=== PATIENT | male | born 1965 | race Caucasian/White ===

== ENCOUNTER 2017-12-02 01:07 | Outpatient (CLI) | payer MEDICAID, SELFPAY ==
[2017-12-02 12:19] LABS: Hemoglobin A1C 5.6 % (4.5-6.2)
== END 2017-12-02 01:27 ==
PROVIDERS: PCP Family Medicine; Visit Provider Family Medicine
DX: E11.9 Type 2 diabetes mellitus without complications (principal)
CPT/HCPCS: 36415; 83036

== ENCOUNTER 2017-12-06 08:52 | Outpatient (CLI) | payer MEDICAID, SELFPAY ==
[2017-12-06 11:15] LABS: Anion Gap 12.5 mmol/L (3-11); BUN 50 mg/dL (7-18); CO2 21.5 mmol/L (21.0-32.0); CREATININE 2.24 mg/dL (0.70-1.30); Calcium 8.8 mg/dL (8.5-10.1); Chloride 108 mmol/L (98-107); Estimated GFR 30.82 (mL/min/1.73m2); Glucose 84 mg/dL (70-100); Potassium 4.8 mmol/L (3.5-5.1); Sodium 142 mmol/L (136-145)
== END 2017-12-06 09:12 ==
PROVIDERS: PCP Family Medicine; Visit Provider Family Medicine
DX: N28.9 Disorder of kidney and ureter, unspecified (principal)
CPT/HCPCS: 36415; 80048

== ENCOUNTER 2017-12-11 00:52 | Outpatient (CLI) | payer MEDICAID, SELFPAY ==
--- NOTE | 2017-12-11 08:49 | DI.US_ITS ---
SYMPTOMS/DIAGNOSIS: ELEVATED CREATININE, RENAL INSUFFICIENCY, N28.8-DISORDER OF KIDNEY AND URETER RENAL ULTRASOUND: The right kidney measures 10.4 x 5.3 x 4.5 cm. There is a 1.2 x 1 x 1 cm right lower pole cyst. The left kidney measures 10.6 x 6.4 x 5.3 cm. There is no evidence of hydronephrosis. Normal color flow is noted in both kidneys. A smooth-walled bladder is identified. Ureteral jets are seen. The prevoid bladder contains 237 cc, the postvoid bladder 7 cc. The prostatic volume is 22.8 cm3. SUMMARY: Normal renal ultrasound.
== END 2017-12-11 01:12 ==
PROVIDERS: PCP Family Medicine; Visit Provider Family Medicine
DX: N28.89 Other specified disorders of kidney and ureter (principal); R79.89 Other specified abnormal findings of blood chemistry
CPT/HCPCS: 76770

== ENCOUNTER 2018-02-27 02:39 | Outpatient (CLI) | payer MEDICAID, SELFPAY ==
[2018-02-27 12:15] LABS: Hemoglobin A1C 5.5 % (4.5-6.2)
[2018-02-27 12:18] LABS: Bilirubin Negative (Negative); Blood Trace-lysed (Negative); Clarity Clear; Glucose Negative (Negative); Ketones Negative (Negative); Leukocyte Esterase Negative (Negative); Nitrite Negative (Negative); Urobilinogen 0.2 EU/dL (Up TO 0.2)
[2018-02-27 12:41] LABS: Bacteria Few HPF (Negative); C & S Indicated? No/Sq. Contamination; Casts Negative LPF (Negative); Crystals Negative HPF (Negative); Epithelial Cells Many HPF (Negative); Mucus Negative (Negative); RBC 0-2 (0-2); WBC 0-2 HPF (0-5)
== END 2018-02-27 02:59 ==
PROVIDERS: PCP Family Medicine; Visit Provider Family Medicine
DX: I10 Essential (primary) hypertension (principal); N28.9 Disorder of kidney and ureter, unspecified; E11.21 Type 2 diabetes mellitus with diabetic nephropathy
CPT/HCPCS: 81003; 81015; 83036

== ENCOUNTER 2018-05-22 15:07 | Emergency (ER) | payer MEDICAID, SELFPAY ==
[2018-05-22 15:52] VITALS: BP 161/117; PULSE 79; RESP 16; TEMP 36.3; O2SAT 96
--- NOTE | 2018-05-22 16:39 | ED.GENADUL_ITS ---
Discharge Plan Disposition Patient Disposition: HOME Discharge Details Chief Complaint: RespSymp Clinical Impression: Cough, Smoker, Bronchitis Primary Care Provider: [facility] ED Provider: Nikolay Santacruz Home Meds and New Rx's Prescriptions: New azithromycin 250 mg tablet 250 mg PO DAILY 4 Days Qty: 4 RF: 0 ibuprofen 600 mg tablet 600 mg PO TID PRN (Reason: fever or pain) Qty: 30 RF: 0 Continued chlorthalidone 25 mg tablet 25 mg PO DAILY RF: 0 albuterol sulfate [ProAir HFA] 8.5 GM HFA aerosol inhaler 2 puff Inhalation Q6H PRN Qty: 1 RF: 4 indomethacin 50 MG capsule 50 mg PO TID PRNQty: 30 RF: 3 OneTouch Ultra Test 1 EACH strip 1 ea Miscellaneous BID Qty: 100 RF: 4 blood-glucose meter [OneTouch UltraMini] 1 EACH kit 1 ea Miscellaneous BID Qty: 1 RF: 0 metoprolol tartrate 50 MG tablet 50 mg PO BID Qty: 180 RF: 4 lancets [OneTouch Delica Lancets] 1 EACH misc 1 ea Miscellaneous BID Qty: 100 RF: 5 metformin 1,000 MG tablet 1,000 mg PO BID Qty: 180 RF: 4 amlodipine 10 MG tablet 10 mg PO DAILY Qty: 90 RF: 4 lisinopril 40 mg tablet 40 mg PO DAILY Qty: 90 RF: 4 Discharge Instructions Instructions: How to Stop Smoking (ED), Acute Bronchitis (ED), Acute Cough (ED) Additional Instructions: Please take full course of antibiotic as prescribed. Please contact your primary care physician to arrange follow-up. Return to the ER for any worsening or new concerning symptoms. Stand Alone Forms: Work Release Medical Decision Making 52yo m smoker with history of diabetes, hypertension, here with cough and congestion for the past 1 week. Subjective fever. Patient saturating well in no respiratory distress. Fingerstick gluc wnl. Consider pneumonia. Chest x-ray reviewed and interpreted by radiology: No evidence for acute abnormality in the chest. Suspect bronchitis. Given severity of illness and smoking history, plan to treat with azithromycin. Patient was reassessed after DuoNeb treatment and was noted to feel better. Disposition decision was made weighing the risks and benefits of hospitalization versus outpatient treatment, the risk for further decompensation, and the patient's wishes. The patient was stable and requested discharge. Prior to discharge, my usual and customary return precautions were reviewed with the patient - this included follow-up instructions and reason to return to the emergency department if condition worsens, does not improve as expected, or other new concerns arise. HPI General Mode of arrival: ambulatory . Date/Time Provider Initiated Documentation: 05/22/18 16:12 . Limitations to Documentation: no limitations . Information obtained by: patient . HPI Narrative: 52-year-old male with history of type 2 diabetes, smoker, hypertension, here with chief complaint of cough. Patient notes that for the past 1 week he has had cough, congestion, fatigue, subjective fever, intermittent headache. Cough is productive of yellow sputum. He has associated pleuritic chest discomfort when he coughs only. Patient notes that he has been using his albuterol inhaler intermittently for shortness of breath. Related Data Home Medications Medication Instructions Recorded Confirmed albuterol sulfate [ProAir HFA] 2 puff INHALATION Q6H PRN #1 05/19/15 05/22/18 inhaler indomethacin 50 mg PO TID PRN #30 tab-cap 11/15/16 05/22/18 OneTouch Ultra Test #100 strip 06/04/17 04/22/18 blood-glucose meter [OneTouch #1 kit 06/04/17 04/22/18 UltraMini] lancets [OneTouch Delica Lancets] #100 ea 06/04/17 04/22/18 metoprolol tartrate 50 mg PO BID #180 tab-cap 06/04/17 05/22/18 metformin 1,000 mg PO BID #180 tab-cap 06/11/17 05/22/18 amlodipine 10 mg PO DAILY #90 tab-cap 07/01/17 05/22/18 lisinopril 40 mg tablet 40 mg PO DAILY #90 tab-cap 01/29/18 05/22/18 chlorthalidone 25 mg tablet 25 mg PO DAILY 04/03/18 05/22/18 azithromycin 250 mg PO DAILY 4 Days #4 tab 05/22/18 ibuprofen 600 mg PO TID PRN #30 tab 05/22/18 Previous Rx's Medication Instructions Recorded OneTouch Ultra Test #100 strip 06/04/17 blood-glucose meter [OneTouch #1 kit 06/04/17 UltraMini] lancets [OneTouch Delica Lancets] #100 ea 06/04/17 metoprolol tartrate 50 mg PO BID #180 tab-cap 06/04/17 metformin 1,000 mg PO BID #180 tab-cap 06/11/17 amlodipine 10 mg PO DAILY #90 tab-cap 07/01/17 lisinopril 40 mg tablet 40 mg PO DAILY #90 tab-cap 01/29/18 azithromycin 250 mg PO DAILY 4 Days #4 tab 05/22/18 ibuprofen 600 mg PO TID PRN #30 tab 05/22/18 Allergies Allergy/AdvReac Type Severity Reaction Status Date / Time No Known Allergies Allergy Unverified 04/22/18 08:42 General Stated Complaint: RespSymp JASON: 3 Review of Systems Constitutional Reports fever(s) and Reports headache(s) ENT Reports headache(s) and Reports nasal congestion Respiratory Reports cough Neurologic Reports headache(s) [facility] Surgical History Appendectomy (~11/2009) Family History Mother No problems noted. Father Hyperlipidemia Stroke Sister No problems noted. Brother Diabetes Asthma Brother No problems noted. Brother No problems noted. Grandfather No problems noted. Grandfather No problems noted. Grandmother No problems noted. Grandmother No problems noted. Social History Smoking/Tobacco Use Status: Current every day Tobacco Type: cigarettes Alcohol Intake: never Drug use: Never Substance use type: does not use current occupation: [employer] What type of physical activity do you participate in: none Do you feel safe in your relationship?: Yes Exam Const General: cooperative and no acute distress Orientation: alert and awake HENLA Head: normocephalic Mouth: moist mucous membranes Eyes Conjunctivae: normal conjunctivae Sclera: normal sclerae Neck Neck: trachea midline and supple Resp Effort & Inspection: normal respiratory effort Auscultation: clear to auscultation bilaterally, no rales, rhonchi and no wheezes Cardio Jugular venous pressure: no JVD Rate: regular rate and not tachycardic Rhythm: regular rhythm GI Palpation: soft, not firm, no guarding, no masses, not rigid and nontender Skin General skin exam: no rashes or lesions noted Neuro General: alert, awake, oriented x3 and tone normal Extrem General: no edema Course Vital Signs Temperature 36.3 C L 05/22/18 15:52 Pulse 79 05/22/18 15:52 Respiratory Rate 16 05/22/18 15:52 Blood Pressure 161/117 H 05/22/18 15:52 Pulse Oximetry 96 05/22/18 15:52 Temperature 36.3 C L 05/22/18 15:52 Pulse 79 05/22/18 15:52 Respiratory Rate 16 05/22/18 15:52 Respiratory Effort Non-Labored 05/22/18 15:52 Blood Pressure 161/117 H 05/22/18 15:52 Blood Pressure Position Sitting 05/22/18 15:52 Pulse Oximetry 96 05/22/18 15:52 Oxygen Delivery Method Room Air 05/22/18 15:52 Oxygen Flow Rate 0 05/22/18 15:52 Pain Level 8 05/22/18 15:52
--- NOTE | 2018-05-22 16:45 | DI.RAD_ITS ---
SYMPTOM/DIAGNOSIS: COUGH PA AND LATERAL CHEST: Comparison is made with 06/03/17. The heart is normal in size. The lungs are clear. The mediastinal structures and pleura appear intact. CONCLUSION: Normal chest.
[2018-05-22] MEDS: Albuterol/Ipratropium 3 ML UPD VIAL UPD (16:57)
[2018-05-22] MEDS: Azithromycin 250 MG TAB 500 MG PO (16:57)
--- NOTE | 2018-05-22 17:29 | DI.VRAD_ITS ---
EXAM: XR Chest, 2 Views EXAM DATE/TIME: 05/22/2018 4:38 PM CLINICAL HISTORY: 52 years old, male; Signs and symptoms; Other: Cough TECHNIQUE: Imaging protocol: XR of the chest, 2 views. COMPARISON: CR CHEST 2 VIEWS PA,LAT 06/03/2017 10:24 AM FINDINGS: Lungs: Unremarkable. No consolidation. Pleural space: Unremarkable. No pleural effusion. No pneumothorax. Heart/Mediastinum: Unremarkable. No cardiomegaly. Bones/joints: Unremarkable. IMPRESSION: No evidence for acute abnormality in the chest. COMMENT: Preliminary interpretation is based on receipt of 2 image(s). A final report will be issued subsequently. Dictated and Authenticated by: Anna Ryder MD. Ordering:DELMA Link MD
[2018-05-22] MEDS: Acetaminophen 325 MG TAB 650 MG PO (18:41)
[2018-05-22] MEDS: Ibuprofen 600 MG TAB PO (18:42)
[2018-05-22 18:51] VITALS: BP 154/92; PULSE 84; RESP 16; TEMP 36.3; O2SAT 96
== END 2018-05-22 18:54 | disposition home or self-care (01) ==
PROVIDERS: Emergency Provider Student in an Organized Health Care Education/Training Program; PCP Family Medicine
DX: J20.9 Acute bronchitis, unspecified (principal); E11.9 Type 2 diabetes mellitus without complications; Z79.84 Long term (current) use of oral hypoglycemic drugs; F17.210 Nicotine dependence, cigarettes, uncomplicated; I10 Essential (primary) hypertension
CPT/HCPCS: 94640; 99283; 71046; J7620

== ENCOUNTER 2018-05-26 02:15 | Outpatient (CLI) | payer MEDICAID, SELFPAY ==
[2018-05-26 11:15] LABS: Hemoglobin A1C 5.9 % (4.5-6.2)
== END 2018-05-26 02:35 ==
PROVIDERS: PCP Family Medicine; Visit Provider Family Medicine
DX: E11.65 Type 2 diabetes mellitus with hyperglycemia (principal)
CPT/HCPCS: 36415; 83036

== ENCOUNTER 2018-12-22 02:08 | Outpatient (CLI) | payer MEDICAID, SELFPAY ==
[2018-12-22 16:19] LABS: Hemoglobin A1C 5.6 % (4.5-6.2)
== END 2018-12-22 02:28 ==
PROVIDERS: PCP Family Medicine; Visit Provider Family Medicine
DX: E11.9 Type 2 diabetes mellitus without complications (principal)
CPT/HCPCS: 36415; 83036

== ENCOUNTER 2018-12-29 15:43 | Outpatient (CLI) | payer MEDICAID, SELFPAY ==
[2018-12-29 19:37] LABS: Anion Gap 12.7 mmol/L (3-11); BUN 37 mg/dL (7-18); CO2 24.3 mmol/L (21.0-32.0); CREATININE 2.36 mg/dL (0.70-1.30); Calcium 9.1 mg/dL (8.5-10.1); Chloride 110 mmol/L (98-107); Estimated GFR 28.91 (mL/min/1.73m2); Glucose 87 mg/dL (70-100); Potassium 3.9 mmol/L (3.5-5.1); Sodium 147 mmol/L (136-145)
== END 2018-12-29 16:03 ==
PROVIDERS: PCP Family Medicine; Visit Provider Family Medicine
DX: I10 Essential (primary) hypertension (principal)
CPT/HCPCS: 36415; 80048

== ENCOUNTER 2020-03-23 03:13 | Outpatient (CLI) | payer OTHER, SELFPAY ==
[2020-03-23 17:17] LABS: Calculated LDL 124 mg/dL (<100); Cholesterol 172 mg/dL (<200); HDL Cholesterol 26 mg/dL (40-60); Triglyceride 112 mg/dL (<150)
== END 2020-03-23 03:33 ==
PROVIDERS: PCP Nurse Practitioner; Visit Provider Nurse Practitioner
DX: Z13.6 Encounter for screening for cardiovascular disorders (principal)
CPT/HCPCS: 36415; 80061

== ENCOUNTER 2020-05-30 04:12 | Outpatient (CLI) | payer OTHER, SELFPAY ==
[2020-05-31 16:15] LABS: COVID-19 RT-PCR UVMMC Result Negative (Negative)
== END 2020-05-30 04:13 | disposition home or self-care (01) ==
LOC: LBO 04:12
PROVIDERS: PCP Nurse Practitioner; Visit Provider Nurse Practitioner
DX: Z20.828 Contact with and (suspected) exposure to other viral communicable diseases (principal)
CPT/HCPCS: U0003

== ENCOUNTER 2021-04-11 02:24 | Outpatient (CLI) | payer OTHER, SELFPAY ==
[2021-04-11 09:46] LABS: Hemoglobin A1C 5.7 % (<5.7)
[2021-04-11 10:30] LABS: Calculated LDL 59 mg/dL (<100); Cholesterol 109 mg/dL (<200); Estimated GFR 21.75 (mL/min/1.73m2); HDL Cholesterol 26 mg/dL (40-60); Potassium 4.3 mmol/L (3.5-5.1); Triglyceride 120 mg/dL (<150)
== END 2021-04-11 02:25 | disposition home or self-care (01) ==
LOC: LBO 02:25
PROVIDERS: PCP Nurse Practitioner; Visit Provider Nurse Practitioner
DX: I10 Essential (primary) hypertension (principal); E11.9 Type 2 diabetes mellitus without complications; E78.5 Hyperlipidemia, unspecified
CPT/HCPCS: 36415; 80061; 82565; 83036; 84132

== ENCOUNTER 2021-06-01 14:00 | Outpatient (CLI) | payer OTHER, SELFPAY ==
--- NOTE | 2021-06-01 14:00 | RT.EKG_ITS ---
APPROVED REPORT Exam: Resting ECG Reason for Exam: HTN Patient Location: O HR:54 bpm ECG Measurements Heart Rate 54 AXIS CA 208 P 44 QRSd 96 QRS 7 QT 427 T 46 QTc 405 Conclusion Sinus rhythm...normal P axis, V-rate 50- 99 Borderline prolonged CA interval...CA >202, V-rate 50- 90
== END 2021-06-01 14:01 | disposition home or self-care (01) ==
LOC: DI.CARD 14:01
PROVIDERS: PCP Nurse Practitioner; Visit Provider Internal Medicine Cardiovascular Disease
DX: I10 Essential (primary) hypertension (principal); E78.5 Hyperlipidemia, unspecified; N18.4 Chronic kidney disease, stage 4 (severe)
CPT/HCPCS: 93010

== ENCOUNTER 2021-08-02 13:41 | Outpatient (CLI) | payer OTHER, SELFPAY ==
--- NOTE | 2021-08-02 13:30 | RT.EKG_ITS ---
APPROVED REPORT Exam: Resting ECG Reason for Exam: chest pain Patient Location: O HR:59 bpm ECG Measurements Heart Rate 59 AXIS VA 203 P 62 QRSd 86 QRS 28 QT 409 T 53 QTc 401 Conclusion Sinus bradycardia...rate< 60 Ventricular premature complex...V complex w/ short R-R interval Borderline prolonged VA interval...VA >202, V-rate 50- 90
== END 2021-08-02 13:42 | disposition home or self-care (01) ==
LOC: DI.CM 13:42
PROVIDERS: PCP Nurse Practitioner; Visit Provider Family Medicine
DX: R07.9 Chest pain, unspecified (principal)
CPT/HCPCS: 93010

== ENCOUNTER 2021-08-31 00:58 | Outpatient (CLI) | payer OTHER, SELFPAY ==
--- NOTE | 2021-08-31 07:30 | DI.NM_ITS ---
APPROVED REPORT Exam: Exercise Treadmill Patient Location: Out-Patient Room/Bed: Stress Nurse: Chantell Bender RN Ordering Provider:CHANTELL OSEI MD, Contact Number: [phone] BMI: 34.51 Baseline Rhythm: Sinus Bradycardia Indications: Chest pain. Dizzyness. Kidney disease. Diabetes. HTN. Smoker Medical History Medical History: HTN. HLD. DMII. Smoker. HLD. Cardiac Medications: Amlodipine. Lisinopril. Labetalol. Chlorthalidone. Metformin. Allergies: Atorvastatin. Rosuvastatin. Cardiac Risk Factors: Family hx. HTN. DMII. HLD. Current smoker. Previous Cardiac Procedures: None Pretest Chest Pain Characteristics: None Exercise History: Sedentary Physical Disabilities: None Lung Sounds: Clear to auscultation Heart Sounds: Regular Stress Test Details Test: Exercise stress testing was performed using a Julio protocol. Nuclear Acquisition: Rest Tc-99m/Stress Tc-99m 1 day Rest Isotope: Tc-99m Sestamibi. Dose: 10.8 Date: 08/31/2021 Injection Time: 0920 Stress Isotope: Tc-99m Sestamibi. Dose: 32.9 Date: 08/31/2021 Injection Time: 1050 HR Resting HR Supine: 50 bpm Max Heart Rate (APMHR): 163.180849 bpm Resting HR Standin bpm Target HR (85% APMHR): 138.519925 bpm Max HR Achieved: 145 bpm % of APMHR: 88.96 Recovery HR: 85 bpm HR response to stress: Normal HR response to stress Comment: Labatolol held for 24 hours prior to testing. BP Resting BP Supine: 162/84 mmHg Resting BP Standin/80 mmHg Max BP: 198/78 mmHg Recovery BP: 156/80 mmHg BP response to stress: Normal blood pressure response to stress. ECG Resting ECG: Sinus Bradycardia Ectopy: PVC Stress ECG: Sinus Tachycardia ST Change: No significant ST segment changes noted Arrhythmia: VPC's Recovery ECG: Sinus Rhythm Recovery ST Change: No significant ST segment changes noted Recovery Arrhythmia: VPC Clinical Reason for Termination: Fatigue Stress Symptoms: Dyspnea, Leg Fatigue Exercise duration: 9 min0 sec Highest Stage Reached: Stage 3: 3.4 mph at 14% grade. Exercise capacity: 10.16 METs Angina Score: None Rate Pressure Product: [id number] Stress ECG Conclusion 1. Resting electrocardiogram showed LVH voltage 2. Patient exercised on the Julio protocol and completed a workload of 10.16 METS 3. Normal heart rate and blood pressure response to exercise. The patient achieved 88% of predicted heart rate for age 4. The electrocardiographic portion of the test showed no evidence of myocardial ischemia 5. There were no significant dysrhythmias 6. See MPI report Stress Test Summary STAGE Time (mins) Speed (mph) Grade (%) HR BP SYMPTOMS METS Supine 50 162/84 Standing 60 148/80 1 3 1.7 10 90 164/70 4.6 2 6 2.5 12 125 180/80 7 3 9 3.4 14 145 Moderate dyspnea 10.2 1 min recovery 128 172/68 3 min recovery 96 198/78 Dyspnea subsided 6 min recovery 85 156/80 MPI Conclusion Normal myocardial perfusion without evidence of ischemia or prior infarction EF 52%, normal wall motion Radiologist Interpretation Radiologist agrees with Poll Watcher's Interpretation. Radiologist Interpretation by: William Perez MD Interpretation Date/Time: 08/31/2021 15:29:30
== END 2021-08-31 01:18 ==
LOC: DI 00:58
PROVIDERS: PCP Nurse Practitioner; Visit Provider Family Medicine
DX: E11.9 Type 2 diabetes mellitus without complications (principal); F17.200 Nicotine dependence, unspecified, uncomplicated; I10 Essential (primary) hypertension; N18.4 Chronic kidney disease, stage 4 (severe); R07.9 Chest pain, unspecified; R09.89 Other specified symptoms and signs involving the circulatory and respiratory systems; R42 Dizziness and giddiness
CPT/HCPCS: 78452; 93017

== ENCOUNTER 2021-09-22 01:18 | Outpatient (CLI) | payer OTHER, SELFPAY ==
[2021-09-22 14:04] LABS: Abs Immature Grans 0.04 10^3/uL (0.0-0.06); Absolute Basophil Count 0.09 10^3/uL (0.0-0.2); Absolute Eosinophil Count 0.35 10^3/uL (0.0-0.7); Absolute Lymphocyte Count 2.35 10^3/uL (1.2-3.4); Eosinophils % 3.7; HGB 13.1 g/dL (13.5-17.5); Immature Grans % 0.4; Lymphocytes % 24.9; MCH 31.5 pg (27.0-33.0); MCHC 33.6 % (32.0-36.0); MCV 94 fL (80-95); MPV 9.7 fL (8.0-11.0); Monocytes % 6.4; Neutrophils % 63.6; Platelet Count 159 10^3/uL (130-400); RBC 4.16 10^6/uL (4.36-5.78); RDW 12.3 % (11.8-14.1); RDW-SD 42.9 fL; WBC 9.43 10^3/uL (4.4-10.8)
[2021-09-22 15:28] LABS: ALT 21 U/L (16-63); AST 12 U/L (15-37); Albumin 3.7 g/dL (3.4-5.0); Alkaline Phosphatase 60 U/L (46-116); Anion Gap 12.9 mmol/L (3-11); BUN 33 mg/dL (7-18); Bilirubin, Total 0.3 mg/dL (0.2-1.0); CO2 22.1 mmol/L (21.0-32.0); CREATININE 3.3 mg/dL (0.70-1.30); Calcium 8.5 mg/dL (8.5-10.1); Chloride 110 mmol/L (98-107); Estimated GFR 19.42 (mL/min/1.73m2); Glucose 94 mg/dL (74-106); Potassium 3.5 mmol/L (3.5-5.1); Sodium 145 mmol/L (136-145); Total Protein 7.1 g/dL (6.4-8.2)
== END 2021-09-22 01:19 | disposition home or self-care (01) ==
LOC: LBO 01:18
PROVIDERS: PCP Nurse Practitioner; Visit Provider Nurse Practitioner
DX: Z00.00 Encounter for general adult medical examination without abnormal findings (principal); I10 Essential (primary) hypertension; E11.9 Type 2 diabetes mellitus without complications; F17.200 Nicotine dependence, unspecified, uncomplicated; N18.4 Chronic kidney disease, stage 4 (severe); R07.9 Chest pain, unspecified
CPT/HCPCS: 36415; 80053; 85025

== ENCOUNTER 2022-03-28 04:29 | Outpatient (CLI) | payer OTHER, SELFPAY ==
[2022-03-28 13:00] LABS: Anion Gap 10.1 mmol/L (3-11); BUN 41 mg/dL (7-18); CO2 25.9 mmol/L (21.0-32.0); CREATININE 3.2 mg/dL (0.70-1.30); Calculated LDL 114 mg/dL (<100); Chloride 108 mmol/L (98-107); Cholesterol 161 mg/dL (<200); Estimated GFR 21.74 (mL/min/1.73m2); Glucose 97 mg/dL (74-106); HDL Cholesterol 28 mg/dL (40-60); Potassium 3.6 mmol/L (3.5-5.1); Sodium 144 mmol/L (136-145); Triglyceride 99 mg/dL (<150)
== END 2022-03-28 04:30 | disposition home or self-care (01) ==
LOC: LOS 04:29
PROVIDERS: PCP Nurse Practitioner Family; Visit Provider Nurse Practitioner Family
DX: I10 Essential (primary) hypertension (principal); E78.5 Hyperlipidemia, unspecified
CPT/HCPCS: 36415; 80048; 80061

== ENCOUNTER 2022-07-03 20:56 | Outpatient (REF) | payer OTHER, SELFPAY ==
[2022-07-03 21:51] LABS: Hemoglobin A1C 5.7 % (<5.7)
== END 2022-07-03 20:57 | disposition home or self-care (01) ==
LOC: LBN 20:56
PROVIDERS: PCP Nurse Practitioner Family; Visit Provider Nurse Practitioner Family
DX: E11.9 Type 2 diabetes mellitus without complications (principal); M10.9 Gout, unspecified
CPT/HCPCS: 83036; 84550

== ENCOUNTER 2022-07-17 20:08 | Outpatient (REF) | payer OTHER, SELFPAY ==
[2022-07-17 21:14] LABS: Uric Acid 6.9 mg/dL (3.5-7.2)
== END 2022-07-17 20:09 | disposition home or self-care (01) ==
LOC: LBN 20:08
PROVIDERS: PCP Nurse Practitioner Family; Visit Provider Nurse Practitioner Family
DX: N18.4 Chronic kidney disease, stage 4 (severe) (principal); M10.9 Gout, unspecified; I10 Essential (primary) hypertension; E11.9 Type 2 diabetes mellitus without complications
CPT/HCPCS: 84550

== ENCOUNTER 2022-08-06 13:49 | Outpatient (REF) | payer OTHER, SELFPAY ==
[2022-08-06 13:07] LABS: Uric Acid 5.7 mg/dL (3.5-7.2)
== END 2022-08-06 13:50 | disposition home or self-care (01) ==
LOC: LBN 13:49
PROVIDERS: PCP Nurse Practitioner Family; Visit Provider Nurse Practitioner Family
DX: N18.4 Chronic kidney disease, stage 4 (severe) (principal); M10.9 Gout, unspecified; I10 Essential (primary) hypertension; E11.9 Type 2 diabetes mellitus without complications
CPT/HCPCS: 84550

== ENCOUNTER 2023-04-20 18:35 | Emergency (ER) | payer OTHER, SELFPAY ==
[2023-04-20] VITALS (45 sets, daily range): BP systolic 124–170; BP diastolic 71–94; PULSE 63–87; RESP 11–21; TEMP 36.4; O2SAT 97
--- NOTE | 2023-04-20 18:30 | RT.EKG_ITS ---
APPROVED REPORT Exam: Resting ECG Reason for Exam: Chest Pain Patient Location: E HR:74 bpm ECG Measurements Heart Rate 74 AXIS UT 174 P 76 QRSd 90 QRS 23 QT 360 T 86 QTc 400 Conclusion Sinus rhythm...normal P axis, V-rate 60- 99 Nonspecific repol abnormality, diffuse leads...ST dep, T flat/neg, ant/lat/inf sinus rhythm, normal axis, normal intervals, st segment depressions anterior septal leads, consider s ubtle st segment elevations III
--- NOTE | 2023-04-20 18:48 | W.ED.GENAD ---
Discharge Plan Disposition Patient Disposition: Transfer-Acute Inpatient Care Condition: Stable Discharge Details Clinical Impression: Acute ST elevation myocardial infarction (STEMI) of posterior wall Primary Care Provider: Maximus Esposito ED Provider: Marlon Hale Home Meds and New Rx's Prescriptions: No Action albuterol sulfate [ProAir HFA] 90 mcg/actuation HFA aerosol inhaler 2 puff Inhalation Q6H PRN Qty: 1 0RF Rx Instructions: with spacer indomethacin 50 mg capsule 50 mg PO TID PRN (Reason: gout) Qty: 10 0RF Rx Instructions: As needed for gout attack (DME) blood sugar diagnostic Strip 1 ea Miscellaneous BID Qty: 100 4RF Rx Instructions: One daily lisinopril 40 mg tablet 40 mg PO DAILY Qty: 90 4RF chlorthalidone 25 mg tablet 25 mg PO DAILY Qty: 90 4RF amlodipine 10 mg tablet 10 mg PO DAILY Qty: 90 4RF cholecalciferol (vitamin D3) 50 mcg (2,000 unit) capsule 2,000 unit PO DAILY Qty: 90 4RF Rx Instructions: Per nephrology allopurinol 100 mg tablet 100 mg PO DAILY Qty: 90 4RF (DME) blood-glucose meter [OneTouch UltraMini] 1 EACH kit 1 ea Miscellaneous BID Qty: 1 0RF (DME) lancets [OneTouch Delica Lancets] 1 EACH misc 1 ea Miscellaneous BID Qty: 100 5RF metoprolol succinate 50 mg tablet extended release 24 hr See Rx Instructions .ROUTE .COMPLEX Qty: 60 4RF Dose Instruction: TAKE 1 TABLET BY MOUTH TWICE DAILY Rx Instructions: TAKE 1 TABLET BY MOUTH TWICE DAILY HPI General Date/Time Provider Initiated Documentation: 04/20/23 18:47. HPI Narrative: 57 year-old female presents to ED today by POV/ambulating with a chief complaint of headaches, chest pain with onset for the past two weeks, chest pain since at least 0400 this morning when he went ice fishing. Patient has diabetes, has not been taking his medications for a couple days- states he is unsure if a roommate he is trying to evict but cannot has been messing with his medications- was trying to hold them to see if his headaches went away. Quality described as chest pressure with shortness of breath, denies diaphoresis, denies near syncope, endorses daily severe migraines, denies fever, states he was very thirsty earlier today and drank some gómez nafisa and threw up once, no radiation to polyuria, cough, recent URI, neck stiffness, bowel changes. Severity is described as 10/04. Palliating factors include took a Mima aspirin around 1400 today. Provoking factors include nothing specific. Events leading up to the incident/Associated Symptoms: Patient denies cardiac history. Patient not anticoagulated. Related Data Home Medications Medication Instructions Recorded Confirmed blood-glucose meter (OneTouch ##1 06/04/17 12/11/22 UltraMini kit) lancets 33 gauge (OneTouch Delica #100 ea 06/04/17 12/11/22 Lancets) albuterol sulfate 90 mcg/actuation 2 puff inhalation Q6H PRN ##1 05/28/19 04/20/23 aerosol inhaler (ProAir HFA) blood sugar diagnostic #100 strips 08/27/19 12/11/22 amlodipine 10 mg tablet 10 mg PO DAILY #90 tab-caps 04/10/22 04/20/23 chlorthalidone 25 mg tablet 25 mg PO DAILY #90 tabs 04/10/22 04/20/23 lisinopril 40 mg tablet 40 mg PO DAILY #90 tab-caps 04/10/22 04/20/23 indomethacin 50 mg capsule 50 mg PO TID PRN gout #10 tab-caps 07/17/22 04/20/23 allopurinol 100 mg tablet 100 mg PO DAILY #90 tabs 12/11/22 04/20/23 cholecalciferol (vitamin D3) 50 2,000 unit PO DAILY #90 caps 12/11/22 04/20/23 mcg (2,000 unit) capsule metoprolol succinate 50 mg See Rx Instructions .Route 04/01/23 04/20/23 tablet,extended release 24 hr .COMPLEX #60 tabs Previous Rx's Medication Instructions Recorded blood-glucose meter (OneTouch ##1 06/04/17 UltraMini kit) lancets 33 gauge (OneTouch Delica #100 ea 06/04/17 Lancets) albuterol sulfate 90 mcg/actuation 2 puff inhalation Q6H PRN ##1 05/28/19 aerosol inhaler (ProAir HFA) blood sugar diagnostic #100 strips 08/27/19 amlodipine 10 mg tablet 10 mg PO DAILY #90 tab-caps 04/10/22 chlorthalidone 25 mg tablet 25 mg PO DAILY #90 tabs 04/10/22 lisinopril 40 mg tablet 40 mg PO DAILY #90 tab-caps 04/10/22 indomethacin 50 mg capsule 50 mg PO TID PRN gout #10 tab-caps 07/17/22 allopurinol 100 mg tablet 100 mg PO DAILY #90 tabs 12/11/22 cholecalciferol (vitamin D3) 50 2,000 unit PO DAILY #90 caps 12/11/22 mcg (2,000 unit) capsule metoprolol succinate 50 mg See Rx Instructions .Route 04/01/23 tablet,extended release 24 hr .COMPLEX #60 tabs Allergies Allergy/AdvReac Type Severity Reaction Status Date / Time atorvastatin AdvReac Mild Skin Rash Verified 04/20/23 18:45 rosuvastatin AdvReac Mild Skin Rash Verified 04/20/23 18:45 General Stated Complaint: Chest Pain JASON: 2 Review of Systems All systems reviewed & are unremarkable except as noted in HPI and below Exam Narrative Exam Narrative: GENERAL APPEARANCE: Well-nourished, non-toxic, awake and alert, atraumatic, no acute distress. SKIN: Warm, pink, dry, intact, without rashes/lesions/ulcerations. HEAD: Normocephalic, atraumatic, normal hair distribution for gender/age. EYES: Pupils PERRLA, EOMs intact without nystagmus, normal conjunctiva, no exudates on lids/lashes. ENT: Nares patent, no circumoral cyanosis, no facial swelling NECK: Supple, trachea midline, painless cervical ROM. LUNGS/CHEST: Lungs CTA bilaterally- no rhonchi/rales/wheezes diffusely, non-labored respirations, normal A/P diameter, symmetrical expansion, no chest wall deformity HEART (CV/PV): Regular rate and rhythm without murmur, no peripheral edema, no JVD. ABDOMEN: Soft, non-distended, no guarding, no tenderness. MSK: Normal ROM, no swelling/deformity to bilateral UEs or LEs, moving all extremities without weakness, no cyanosis, spine midline without tenderness, normal curvature. NEURO: Mental Status AAOx4 - alert to person, place, time, events No facial droop, no forehead involvement. Motor: No focal weakness - strength 5/5 in bilateral UEs and LEs, proximal and distal, symmetric. Sensory: sensation intact to light touch globally. Gait normal: patient ambulated without ataxia into ED room. PSYCH: euthymic, cooperative, pleasant, appropriate speech Course Vital Signs Vital signs: Vital Signs Temperature 36.4 C 04/20/23 18:40 Pulse 87 04/20/23 18:40 Respiratory Rate 14 04/20/23 18:40 Blood Pressure 170/94 H 04/20/23 18:40 Pulse Oximetry 97 04/20/23 18:40 Temperature 36.4 C 04/20/23 18:40 Temperature Source Tympanic 04/20/23 18:40 Pulse 87 04/20/23 18:40 Respiratory Rate 14 04/20/23 18:40 Blood Pressure 170/94 H 04/20/23 18:40 Pulse Oximetry 97 04/20/23 18:40 Oxygen Delivery Method Room Air 04/20/23 18:40 Oxygen Flow Rate 0 04/20/23 18:40 Pain Level 10 04/20/23 18:40 Medical Decision Making This dictation utilizes [id number] dictation software and may contain unedited grammatical errors. 57 y/o M presents to ED today with a chief complaint of daily severe headaches for the past two weeks, chest pains off and on throughout- going on since at least 0400 this morning. Patient is a non-insulin dependent diabetic who self-discontinued his medicines due to a complex social situation at home. He has been trying to evict a roommate but cannot- states he has been following the courts ruling but is unsure if this roommate has been messing with his medications, so he stopped to see if that was the source of his headches, no relief. Patient denies cardiac history, states an episode of polydipsia earlier today without polyuria and vomiting 1x. Patients' medical history: Renal insufficiency, nicotine dependence, hypertension, KATIE, type 2 diabetes mellitus, hyperlipidemia, CKD stage IV, right carotid bruit. Family and social history: active smoker, tries to eat well, no recent travel. Pertinent exam findings / vital signs include lungs CTA, nontoxic vitals, benign abdomen, neuro intact, benign cardiac exam. Differential / pathologies of concern include ACS, DKA, Migraine, Covid/Flu, Bacteremia, Rhabdomyolysis. Diagnostic studies of: -CBC, CMP, lactate, CRP/ESR, VBG, CK, lipase, magnesium, procalcitonin, blood cultures, urinalysis, ammonia, BNP, liver panel, COVID/flu/RSV PCR, chest x-ray, EKG. -CBC shows leukocytosis of 13, no anemia -VBG shows no acidosis, lactate 1.3, procal neg - do not suspect sepsis -SCr 3.7, up from prior values this year of 3.2, CKD Stage IV -AST of 96, was ice fishing all day -CK of 944, possible rhabdomyolysis vs elevated from cardiac causes -Trop 12,000 - do not suspect from renal sources with ST depression on EKG -BNP elevated to 788 -UA has protein and blood -Coags, PT/INR/PTT WNL -Blood Cx's pending -CXR shows no widened mediastinum, no acute pathology. -EKG shows sinus rhythm at 74 bpm with P waves followed by narrow complex QRS, normal axis deviation, normal QT QTc, some ST depression in V2 V3 V4 with some low amplitude possible submillimeter elevation in lead III, no T-wave inversions, reviewed with EM Attending Dr. Frankel immediately. -repeat EKG shows some dynamic changes of T-waves inversions, some further depression in Lead II now- question Q-waves in lead III now -Repeat EKG in posterior position for [facility] - with lead 4,5,6 transposed to 7,8,9 - shows 1/2mm elevation in leads 7,8,9 - consistent with posterior STEMI, [facility] accepts for emergent transport by fastest means possible, [facility] en route. Interventions of: -IVF Saline, IV Tylenol. Heparin ACS Protocol > [facility] Cardiology Consult Spoke with Dr. Jose at [facility] Cardiology- would like posterior EKG, recommend 600mg clopidogrel, Nitro PRN, and that they will take the patient, and determination of urgency decided on posterior RI > comes back posterior STEMI, starting nitro drip, [facility] transfer center communicating with [facility] for possible flight for transport. Accepting physician Dr. Painter. [facility] Dr. Jose recommends against lysing the patient as the onset has been vague and intermittent over days. 2120: Nitroglycerin drip started at 5mcg/min, awaiting transfer, pain is <3/10 in chest. Sent repeat troponin value- pending at time of transfer [id number], sent communication to [facility] transfer center. Patient left facility at 2210 by DHART. Disposition of Acute ST elevation myocardial infarction (STEMI) of posterior wall. Patient verbalized understanding of the plan and return to ED criteria and engaged in shared decision making. Medical Records Medical records reviewed: Yes I reviewed the patient's medical records. Imaging Data Radiologic Study: Attestation: I personally reviewed and interpreted this imaging study as follows: Imaging: X-Ray Radiologist's impression: Exam: XR Chest Exam date and time: 04/20/2023 8:03 PM Age: 57 years old Clinical indication: Other: Unspecified; Patient HX: Chest pain TECHNIQUE: Imaging protocol: Radiologic exam of the chest. Views: 1 view. COMPARISON: CT CHEST LUNG CANCER SCREEN 05/22/2022 3:25 PM FINDINGS: Lungs: No consolidation. No Mass Pleural spaces: No pleural effusion. No pneumothorax. Heart/Mediastinum: Unremarkable Bones/joints: No significant abnormality IMPRESSION: No acute findings. Dictated and Authenticated by: Edin Linton MD. Ordering:YESENIA Mason MD Lab Data Lab results reviewed: Yes I reviewed the patient's lab results. Labs: 04/20/23 19:26 Blood Blood Culture - Pending 04/20/23 19:15 Blood Blood Culture - Pending Laboratory Tests Range/Units 04/20/23 04/20/23 04/20/23 19:00 19:00 19:00 WBC (4.4-10.8) 10^3/uL 13.12 H RBC (4.36-5.78) 10^6/uL 4.55 Hgb (13.5-17.5) g/dL 14.2 Hct (40.0-50.0) % 41.3 MCV (80-95) fL 91 MCH (27.0-33.0) pg 31.2 MCHC (32.0-36.0) % 34.4 RDW (11.8-14.1) % 12.9 Plt Count (130-400) 10^3/uL 194 MPV (8.0-11.0) fL 10.2 Immature Gran % 0.3 Neutrophils % 73.0 Lymphocytes % 17.5 Monocytes % 5.6 Eosinophils % 2.8 Basophils % 0.8 Nucleated RBC % (0.0-0.3) % 0.0 Absolute Neutrophils (1.2-6.7) 10^3/uL 9.58 H Absolute Lymphocytes (1.2-3.4) 10^3/uL 2.30 Absolute Monocytes (0.1-0.8) 10^3/uL 0.73 Absolute Eosinophils (0.0-0.7) 10^3/uL 0.37 Absolute Basophils (0.0-0.2) 10^3/uL 0.10 ESR (0-20) mm/hr 13 PT (9.1-11.1) sec 9.8 INR (0.9-1.1) 1.0 APTT (23.6-32.8) sec 32.6 VBG pH (7.31-7.41) VBG pCO2 (41-51) mmHg VBG pO2 mmHg VBG HCO3 (23-28) mmol/L VBG Total CO2 (24-29) mmol/L VBG O2 Saturation % VBG Base Excess (-2-3) mmol/L VBG Lactate (0.6-1.4) mmol/L Sodium (136-145) mmol/L 144 Potassium (3.5-5.1) mmol/L 3.1 L Chloride (98-107) mmol/L 108 H Carbon Dioxide (21.0-32.0) mmol/L 23.3 Anion Gap (3-11) mmol/L 12.7 H BUN (7-18) mg/dL 59 H Creatinine (0.70-1.30) mg/dL 3.7 H* Est GFR (CKD-EPI 2020) (mL/min/1.73m2) 18.15 Glucose (74-106) mg/dL 177 H Calcium (8.5-10.1) mg/dL 8.7 Magnesium (1.8-2.4) mg/dL 2.2 Total Bilirubin (0.2-1.0) mg/dL 0.3 0.3 Conjugated Bilirubin (0.0-0.2) mg/dL 0.1 AST (15-37) U/L 100 H 96 H ALT (16-63) U/L 24 Alkaline Phosphatase (46-116) U/L Ammonia (11-32) umol/L Creatine Kinase (39-308) U/L Troponin I (< or =60) ng/L C-Reactive Protein (<or=0.5) mg/dL NT-Pro-B Natriuret Pep (<300) pg/mL Total Protein (6.4-8.2) g/dL Albumin (3.4-5.0) g/dL Lipase (16-77) U/L Procalcitonin ng/mL Urine Color (Yellow) Urine Clarity (Clear) Urine pH (5-8) Ur Specific [place] (1.005-1.025) Urine Protein (Neg-Trace) mg/dL Urine Ketones (Negative) mg/dL Urine Blood (Negative) Urine Nitrite (Negative) Urine Bilirubin (Negative) Urine Urobilinogen (Up to 0.2) mg/dL Ur Leukocyte Esterase (Negative) Urine RBC (0-2) HPF Urine WBC (0-5) HPF Ur Epithelial Cells (Negative) HPF Urine Crystals (Negative) HPF Urine Bacteria (Negative) HPF Urine Casts (Negative) LPF Urine Mucus (Negative) Urine Other (Negative) Ur Culture Indicated? Urine Glucose (Negative) mg/dL COVID-19 Source SARS-CoV-2 (PCR) (Negative) Influenza Type A (PCR) (Negative) Influenza Type B (PCR) (Negative) RSV (PCR) (Negative) Range/Units 04/20/23 04/20/23 04/20/23 19:00 19:00 19:00 WBC (4.4-10.8) 10^3/uL RBC (4.36-5.78) 10^6/uL Hgb (13.5-17.5) g/dL Hct (40.0-50.0) % MCV (80-95) fL MCH (27.0-33.0) pg MCHC (32.0-36.0) % RDW (11.8-14.1) % Plt Count (130-400) 10^3/uL MPV (8.0-11.0) fL Immature Gran % Neutrophils % Lymphocytes % Monocytes % Eosinophils % Basophils % Nucleated RBC % (0.0-0.3) % Absolute Neutrophils (1.2-6.7) 10^3/uL Absolute Lymphocytes (1.2-3.4) 10^3/uL Absolute Monocytes (0.1-0.8) 10^3/uL Absolute Eosinophils (0.0-0.7) 10^3/uL Absolute Basophils (0.0-0.2) 10^3/uL ESR (0-20) mm/hr PT (9.1-11.1) sec INR (0.9-1.1) APTT (23.6-32.8) sec VBG pH (7.31-7.41) VBG pCO2 (41-51) mmHg VBG pO2 mmHg VBG HCO3 (23-28) mmol/L VBG Total CO2 (24-29) mmol/L VBG O2 Saturation % VBG Base Excess (-2-3) mmol/L VBG Lactate (0.6-1.4) mmol/L Sodium (136-145) mmol/L Potassium (3.5-5.1) mmol/L Chloride (98-107) mmol/L Carbon Dioxide (21.0-32.0) mmol/L Anion Gap (3-11) mmol/L BUN (7-18) mg/dL Creatinine (0.70-1.30) mg/dL Est GFR (CKD-EPI 2020) (mL/min/1.73m2) Glucose (74-106) mg/dL Calcium (8.5-10.1) mg/dL Magnesium (1.8-2.4) mg/dL Total Bilirubin (0.2-1.0) mg/dL Conjugated Bilirubin (0.0-0.2) mg/dL AST (15-37) U/L ALT (16-63) U/L 25 Alkaline Phosphatase (46-116) U/L 60 60 Ammonia (11-32) umol/L 19 Creatine Kinase (39-308) U/L 944 H Troponin I (< or =60) ng/L 43817 H* C-Reactive Protein (<or=0.5) mg/dL 0.65 H NT-Pro-B Natriuret Pep (<300) pg/mL 788 H Total Protein (6.4-8.2) g/dL 7.5 7.6 Albumin (3.4-5.0) g/dL 3.6 Lipase (16-77) U/L Procalcitonin ng/mL Urine Color (Yellow) Urine Clarity (Clear) Urine pH (5-8) Ur Specific [place] (1.005-1.025) Urine Protein (Neg-Trace) mg/dL Urine Ketones (Negative) mg/dL Urine Blood (Negative) Urine Nitrite (Negative) Urine Bilirubin (Negative) Urine Urobilinogen (Up to 0.2) mg/dL Ur Leukocyte Esterase (Negative) Urine RBC (0-2) HPF Urine WBC (0-5) HPF Ur Epithelial Cells (Negative) HPF Urine Crystals (Negative) HPF Urine Bacteria (Negative) HPF Urine Casts (Negative) LPF Urine Mucus (Negative) Urine Other (Negative) Ur Culture Indicated? Urine Glucose (Negative) mg/dL COVID-19 Source SARS-CoV-2 (PCR) (Negative) Influenza Type A (PCR) (Negative) Influenza Type B (PCR) (Negative) RSV (PCR) (Negative) Range/Units 04/20/23 04/20/23 04/20/23 19:00 19:15 19:27 WBC (4.4-10.8) 10^3/uL RBC (4.36-5.78) 10^6/uL Hgb (13.5-17.5) g/dL Hct (40.0-50.0) % MCV (80-95) fL MCH (27.0-33.0) pg MCHC (32.0-36.0) % RDW (11.8-14.1) % Plt Count (130-400) 10^3/uL MPV (8.0-11.0) fL Immature Gran % Neutrophils % Lymphocytes % Monocytes % Eosinophils % Basophils % Nucleated RBC % (0.0-0.3) % Absolute Neutrophils (1.2-6.7) 10^3/uL Absolute Lymphocytes (1.2-3.4) 10^3/uL Absolute Monocytes (0.1-0.8) 10^3/uL Absolute Eosinophils (0.0-0.7) 10^3/uL Absolute Basophils (0.0-0.2) 10^3/uL ESR (0-20) mm/hr PT (9.1-11.1) sec INR (0.9-1.1) APTT (23.6-32.8) sec VBG pH (7.31-7.41) 7.41 VBG pCO2 (41-51) mmHg 35 L VBG pO2 mmHg 65 VBG HCO3 (23-28) mmol/L 22 L VBG Total CO2 (24-29) mmol/L 20 L VBG O2 Saturation % 96 VBG Base Excess (-2-3) mmol/L -3 L VBG Lactate (0.6-1.4) mmol/L 1.3 Sodium (136-145) mmol/L Potassium (3.5-5.1) mmol/L Chloride (98-107) mmol/L Carbon Dioxide (21.0-32.0) mmol/L Anion Gap (3-11) mmol/L BUN (7-18) mg/dL Creatinine (0.70-1.30) mg/dL Est GFR (CKD-EPI 2020) (mL/min/1.73m2) Glucose (74-106) mg/dL Calcium (8.5-10.1) mg/dL Magnesium (1.8-2.4) mg/dL Total Bilirubin (0.2-1.0) mg/dL Conjugated Bilirubin (0.0-0.2) mg/dL AST (15-37) U/L ALT (16-63) U/L Alkaline Phosphatase (46-116) U/L Ammonia (11-32) umol/L Creatine Kinase (39-308) U/L Troponin I (< or =60) ng/L C-Reactive Protein (<or=0.5) mg/dL NT-Pro-B Natriuret Pep (<300) pg/mL Total Protein (6.4-8.2) g/dL Albumin (3.4-5.0) g/dL 3.6 Lipase (16-77) U/L 50 Procalcitonin ng/mL 0.1 Urine Color (Yellow) Urine Clarity (Clear) Urine pH (5-8) Ur Specific [place] (1.005-1.025) Urine Protein (Neg-Trace) mg/dL Urine Ketones (Negative) mg/dL Urine Blood (Negative) Urine Nitrite (Negative) Urine Bilirubin (Negative) Urine Urobilinogen (Up to 0.2) mg/dL Ur Leukocyte Esterase (Negative) Urine RBC (0-2) HPF Urine WBC (0-5) HPF Ur Epithelial Cells (Negative) HPF Urine Crystals (Negative) HPF Urine Bacteria (Negative) HPF Urine Casts (Negative) LPF Urine Mucus (Negative) Urine Other (Negative) Ur Culture Indicated? Urine Glucose (Negative) mg/dL COVID-19 Source Nasopharynx SARS-CoV-2 (PCR) (Negative) Negative Influenza Type A (PCR) (Negative) Negative Influenza Type B (PCR) (Negative) Negative RSV (PCR) (Negative) Negative Range/Units 04/20/23 19:40 WBC (4.4-10.8) 10^3/uL RBC (4.36-5.78) 10^6/uL Hgb (13.5-17.5) g/dL Hct (40.0-50.0) % MCV (80-95) fL MCH (27.0-33.0) pg MCHC (32.0-36.0) % RDW (11.8-14.1) % Plt Count (130-400) 10^3/uL MPV (8.0-11.0) fL Immature Gran % Neutrophils % Lymphocytes % Monocytes % Eosinophils % Basophils % Nucleated RBC % (0.0-0.3) % Absolute Neutrophils (1.2-6.7) 10^3/uL Absolute Lymphocytes (1.2-3.4) 10^3/uL Absolute Monocytes (0.1-0.8) 10^3/uL Absolute Eosinophils (0.0-0.7) 10^3/uL Absolute Basophils (0.0-0.2) 10^3/uL ESR (0-20) mm/hr PT (9.1-11.1) sec INR (0.9-1.1) APTT (23.6-32.8) sec VBG pH (7.31-7.41) VBG pCO2 (41-51) mmHg VBG pO2 mmHg VBG HCO3 (23-28) mmol/L VBG Total CO2 (24-29) mmol/L VBG O2 Saturation % VBG Base Excess (-2-3) mmol/L VBG Lactate (0.6-1.4) mmol/L Sodium (136-145) mmol/L Potassium (3.5-5.1) mmol/L Chloride (98-107) mmol/L Carbon Dioxide (21.0-32.0) mmol/L Anion Gap (3-11) mmol/L BUN (7-18) mg/dL Creatinine (0.70-1.30) mg/dL Est GFR (CKD-EPI 2020) (mL/min/1.73m2) Glucose (74-106) mg/dL Calcium (8.5-10.1) mg/dL Magnesium (1.8-2.4) mg/dL Total Bilirubin (0.2-1.0) mg/dL Conjugated Bilirubin (0.0-0.2) mg/dL AST (15-37) U/L ALT (16-63) U/L Alkaline Phosphatase (46-116) U/L Ammonia (11-32) umol/L Creatine Kinase (39-308) U/L Troponin I (< or =60) ng/L C-Reactive Protein (<or=0.5) mg/dL NT-Pro-B Natriuret Pep (<300) pg/mL Total Protein (6.4-8.2) g/dL Albumin (3.4-5.0) g/dL Lipase (16-77) U/L Procalcitonin ng/mL Urine Color (Yellow) Yellow Urine Clarity (Clear) Clear Urine pH (5-8) 6.0 Ur Specific [place] (1.005-1.025) 1.015 Urine Protein (Neg-Trace) mg/dL 100 H Urine Ketones (Negative) mg/dL Negative Urine Blood (Negative) Moderate H Urine Nitrite (Negative) Negative Urine Bilirubin (Negative) Negative Urine Urobilinogen (Up to 0.2) mg/dL 0.2 Ur Leukocyte Esterase (Negative) Negative Urine RBC (0-2) HPF 3-5 H Urine WBC (0-5) HPF 0-2 Ur Epithelial Cells (Negative) HPF Few Urine Crystals (Negative) HPF Negative Urine Bacteria (Negative) HPF Rare Urine Casts (Negative) LPF 3-5 Fine Granular Urine Mucus (Negative) Negative Urine Other (Negative) Rare Transitional Ur Culture Indicated? No Urine Glucose (Negative) mg/dL 100 H COVID-19 Source SARS-CoV-2 (PCR) (Negative) Influenza Type A (PCR) (Negative) Influenza Type B (PCR) (Negative) RSV (PCR) (Negative) Quality:SDOH Health Related Social Needs: No Data to Display PFSH All Active Problems (Updated 04/20/23 @ 21:16 by REBECCA Valle) Acute ST elevation myocardial infarction (STEMI) of posterior wall (Acute) Chest pain at rest (Acute) Right carotid bruit (Acute) Stage 4 chronic kidney disease (Acute) Hyperlipidemia (Acute) Type 2 diabetes mellitus without complications (Chronic) Smoker (Chronic 05/19/15) 2020- PPD hx Obstructive sleep apnea syndrome (Chronic) Gout (Chronic 03/25/12) Essential hypertension (Chronic 04/28/15) Medical History Lichen sclerosus of penis (04/15/15) Nicotine dependence Renal insufficiency (04/01/15) [facility]- no longer following Cannot afford their visits Surgical History Appendectomy (~11/2009) Family History Mother No problems noted. 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 Pets and animals: No Sexually active: Yes Do you think of yourself as: straight/heterosexual Current gender identity: male What is your relationship status?: How often do you talk on the phone with friends or family?: once per week How often do you get together with friends or relatives?: once per week How often do you attend buddhist or baptism services?: 1-3 times per year Do you belong to any clubs or organized social groups?: no Panel score (0-1 are the most socially isolated patients): 0 What type of physical activity do you participate in: none [place]/Anabaptist: Zoroastrianism Seatbelt use: never Helmet use: Yes Helmet use: sometimes Drive intox or ride w/intox fuel truck driver: No Do you feel safe in your relationship?: Yes
[2023-04-20] MEDS: Normal Saline 1,000 ML 1000 ML IV (18:59)
[2023-04-20 19:10] LABS: Abs Immature Grans 0.04 10^3/uL (0.0-0.06); Absolute Eosinophil Count 0.37 10^3/uL (0.0-0.7); Basophils % 0.8; Eosinophils % 2.8; HCT 41.3 % (40.0-50.0); HGB 14.2 g/dL (13.5-17.5); Immature Grans % 0.3; Lymphocytes % 17.5; MCH 31.2 pg (27.0-33.0); MCHC 34.4 % (32.0-36.0); MCV 91 fL (80-95); MPV 10.2 fL (8.0-11.0); Monocytes % 5.6; Platelet Count 194 10^3/uL (130-400); RBC 4.55 10^6/uL (4.36-5.78); RDW 12.9 % (11.8-14.1); RDW-SD 42.2 fL; WBC 13.12 10^3/uL (4.4-10.8)
[2023-04-20 19:14] LABS: ESR 13 mm/hr (0-20)
[2023-04-20 19:18] LABS: Absolute Monocyte Count 0.73 10^3/uL (0.1-0.8); Absolute Neutrophil Count 9.58 10^3/uL (1.2-6.7)
[2023-04-20 19:21] LABS: BE (Venous) -3 mmol/L (-2-3); HCO3 (Venous) 22 mmol/L (23-28); O2 Sat (Venous) 96 %; TCO2 (Venous) 20 mmol/L (24-29); pCO2 (Venous) 35 mmHg (41-51); pH (Venous) 7.41 (7.31-7.41); pO2 (Venous) 65 mmHg
[2023-04-20 19:23] LABS: Lactate 1.3 mmol/L (0.6-1.4)
[2023-04-20 19:27] LABS: Ammonia 19 umol/L (11-32)
[2023-04-20] MEDS: ACETAMINOPHEN 1,000 MG/100 ML BTL 400 MG IVPB (19:33)
[2023-04-20 19:36] LABS: ALT 25 U/L (16-63); AST 96 U/L (15-37); Albumin 3.6 g/dL (3.4-5.0); Alkaline Phosphatase 60 U/L (46-116); Bilirubin, Direct 0.1 mg/dL (0.0-0.2); Bilirubin, Total 0.3 mg/dL (0.2-1.0); Lipase 50 U/L (16-77); Magnesium 2.2 mg/dL (1.8-2.4); NT-proBNP 788 pg/mL (<300); Total Protein 7.6 g/dL (6.4-8.2)
[2023-04-20 19:39] LABS: ALT 24 U/L (16-63); AST 100 U/L (15-37); Albumin 3.6 g/dL (3.4-5.0); Alkaline Phosphatase 60 U/L (46-116); Anion Gap 12.7 mmol/L (3-11); BUN 59 mg/dL (7-18); Bilirubin, Total 0.3 mg/dL (0.2-1.0); C-Reactive Protein 0.65 mg/dL (<or=0.5); CO2 23.3 mmol/L (21.0-32.0); Calcium 8.7 mg/dL (8.5-10.1); Chloride 108 mmol/L (98-107); Creatine Kinase 944 U/L (39-308); Estimated GFR 18.15 (mL/min/1.73m2); Glucose 177 mg/dL (74-106); Potassium 3.1 mmol/L (3.5-5.1); Sodium 144 mmol/L (136-145); Total Protein 7.5 g/dL (6.4-8.2)
[2023-04-20 19:42] LABS: CREATININE 3.7 mg/dL (0.70-1.30); Troponin I 12269 ng/L (< or =60)
--- NOTE | 2023-04-20 19:45 | RT.EKG_ITS ---
APPROVED REPORT Exam: Resting ECG Reason for Exam: chest pain Patient Location: E HR:63 bpm ECG Measurements Heart Rate 63 AXIS [place] 176 P 73 QRSd 92 QRS 12 QT 390 T 123 QTc 401 Conclusion Sinus rhythm...normal P axis, V-rate 60- 99 sinus rhtyhm, normal axis, normal intervals, st segment depressions anterior/septal leads, consider s ubtle st elevations III aVF although low voltage
--- NOTE | 2023-04-20 19:45 | DI.RAD_ITS ---
Exam(s) XR PORTABLE CHEST AP EXAM: XR PORTABLE CHEST AP CLINICAL HISTORY: chest pain. TECHNIQUE: 2D digital imaging was performed. COMPARISON: CR XR CHEST 2V PA LATERAL from 05/22/2018 FINDINGS: Single AP portable view. Heart size is upper normal. The mediastinum is not widened. Lungs are clear. No infiltrates nor obvious pleural effusions. IMPRESSION: No acute pulmonary findings on this single AP portable view of the chest. DATA REPOSITORY: RADIATION DOSE DELIVERED:
[2023-04-20 19:47] LABS: Bilirubin Negative (Negative); Blood Moderate (Negative); Clarity Clear (Clear); Glucose 100 mg/dL (Negative); Ketones Negative (Negative); Leukocyte Esterase Negative (Negative); Nitrite Negative (Negative); Specific Gravity 1.015 (1.005-1.025); Urobilinogen 0.2 mg/dL (Up to 0.2)
[2023-04-20] MEDS: Heparin in 0.45% NaCl 25,000 UNIT/250 ML BAG 10 UNIT IV (19:54)
[2023-04-20 19:56] LABS: WBC 0-2 HPF (0-5)
[2023-04-20 19:57] LABS: Bacteria Rare HPF (Negative); C & S Indicated? No; Casts 3-5 Fine Granular LPF (Negative); Crystals Negative HPF (Negative); Epithelial Cells Few HPF (Negative); Mucus Negative (Negative); Other Cells Rare Transitional (Negative)
[2023-04-20 19:58] LABS: Procalcitonin 0.1 ng/mL
[2023-04-20] MEDS: MORPHine 4 MG/ML SYR IVP (20:04)
[2023-04-20 20:13] LABS: PTT Activated 32.6 sec (23.6-32.8); Prothrombin Time 9.8 sec (9.1-11.1)
[2023-04-20 20:16] LABS: COVID-19 PCR Negative (Negative); Influenza A PCR Negative (Negative); Influenza B PCR Negative (Negative); RSV PCR Negative (Negative)
[2023-04-20 20:17] LABS: Source Nasopharynx
--- NOTE | 2023-04-20 20:40 | DI.VRAD_ITS ---
PROCEDURE INFORMATION: Exam: XR Chest Exam date and time: 04/20/2023 8:03 PM Age: 57 years old Clinical indication: Other: Unspecified; Patient HX: Chest pain TECHNIQUE: Imaging protocol: Radiologic exam of the chest. Views: 1 view. COMPARISON: CT CHEST LUNG CANCER SCREEN 05/22/2022 3:25 PM FINDINGS: Lungs: No consolidation. No Mass Pleural spaces: No pleural effusion. No pneumothorax. Heart/Mediastinum: Unremarkable Bones/joints: No significant abnormality IMPRESSION: No acute findings. Dictated and Authenticated by: dEin Linton MD. Ordering:YESENIA Mason MD
--- NOTE | 2023-04-20 20:45 | RT.EKG_ITS ---
APPROVED REPORT Exam: Resting ECG Reason for Exam: posterior leads Patient Location: E HR:66 bpm ECG Measurements Heart Rate 66 AXIS [place] 174 P 69 QRSd 101 QRS 9 QT 380 T [id number] QTc 400 Conclusion Sinus rhythm...normal P axis, V-rate 60- 99 Nonspecific T abnrm, anterolateral leads...T <-0.10mV, I aVL V2-V6 sinus rhythm, normal axis, normal intervals, consider st depressions septal, t wave inversions latera l leads
[2023-04-20] MEDS: nitroGLYcerin 0.4 MG TAB SL (21:03)
[2023-04-20] MEDS: Clopidogrel 300 MG TAB 600 MG PO (21:03)
[2023-04-20] MEDS: MORPHine 10 MG/ML VIAL 2 MG IVP (21:10)
[2023-04-20] MEDS: nitroGLYcerin in D5W 50 MG/250 ML BTL IV (21:20)
[2023-04-20] MEDS: Normal Saline 500 ML IV (21:24)
[2023-04-20 22:20] LABS: Troponin I 30850 ng/L (< or =60)
== END 2023-04-20 22:10 | disposition short-term general hospital (02) ==
PROVIDERS: Emergency Provider Physician Assistant; PCP Nurse Practitioner Family
DX: I21.29 ST elevation (STEMI) myocardial infarction involving other sites (principal); R07.9 Chest pain, unspecified; R51.9 Headache, unspecified; R06.02 Shortness of breath; I10 Essential (primary) hypertension; E11.22 Type 2 diabetes mellitus with diabetic chronic kidney disease; N18.4 Chronic kidney disease, stage 4 (severe)
CPT/HCPCS: 80053; 80076; 82550; 82805; 83690; 84145; 85652; 87040; 87637; 93005; 96365; 96366; 96367; 96375; 96376; 99285; 71045; 81003; 81015; 82140; 83605; 83735; 83880; 84484; 85025; 85610; 85730; 86140; 93010; J0131; J1644; J2270; J2305

== ENCOUNTER 2023-04-28 17:06 | Emergency (ER) | payer OTHER, SELFPAY ==
--- NOTE | 2023-04-28 17:00 | RT.EKG_ITS ---
APPROVED REPORT Exam: Resting ECG Reason for Exam: SOB Patient Location: E HR:80 bpm ECG Measurements Heart Rate 80 AXIS DE 178 P 70 QRSd 75 QRS -17 QT 330 T 89 QTc 382 Conclusion Sinus rhythm...normal P axis, V-rate 60- 99 Low voltage, extremity leads...all extremity leads <0.5mV ERWP
[2023-04-28 17:10] VITALS: BP 124/70; PULSE 93; RESP 26; TEMP 38.8; O2SAT 96
[2023-04-28 17:34] VITALS: BP 124/70; PULSE 93; RESP 24; RESP 26; TEMP 38.8; O2SAT 96
--- NOTE | 2023-04-28 17:45 | DI.RAD_ITS ---
Exam(s) XR CHEST 2V PA LATERAL EXAM: XR CHEST 2V PA LATERAL CLINICAL HISTORY: cough, pleuritic CP TECHNIQUE: 2D digital imaging was performed. COMPARISON: CR,XR XR PORTABLE CHEST AP from 04/20/2023 FINDINGS: Monitoring leads overlie the chest. HEART: Normal size. Aorta: Not dilated. PULMONARY VASCULATURE: Normal. LUNGS: Clear. PLEURAL SPACE: No pleural effusion or pneumothorax. BONE:Unremarkable for age. Soft tissues: Unremarkable. IMPRESSION: No acute abnormality. DATA REPOSITORY: RADIATION DOSE DELIVERED:
[2023-04-28 17:58] LABS: Abs Immature Grans 0.07 10^3/uL (0.0-0.06); Absolute Basophil Count 0.11 10^3/uL (0.0-0.2); Absolute Eosinophil Count 0.23 10^3/uL (0.0-0.7); Absolute Lymphocyte Count 0.83 10^3/uL (1.2-3.4); Absolute Monocyte Count 0.71 10^3/uL (0.1-0.8); Absolute Neutrophil Count 7.26 10^3/uL (1.2-6.7); Basophils % 1.2; Eosinophils % 2.5; HCT 36.9 % (40.0-50.0); HGB 12.4 g/dL (13.5-17.5); Immature Grans % 0.8; MCHC 33.6 % (32.0-36.0); MCV 92 fL (80-95); MPV 10.3 fL (8.0-11.0); Monocytes % 7.7; Neutrophils % 78.8; Platelet Count 249 10^3/uL (130-400); RDW 12.9 % (11.8-14.1); RDW-SD 43.7 fL; WBC 9.21 10^3/uL (4.4-10.8)
--- NOTE | 2023-04-28 18:14 | ED.GENADUL_ITS ---
Discharge Plan Disposition Patient Disposition: Home Condition: Stable Discharge Details Clinical Impression: Influenza A Primary Care Provider: Maximus Esposito ED Provider: Estephania Erwin Home Meds and New Rx's Prescriptions: New oseltamivir [Tamiflu] 75 mg capsule 75 mg PO BID 5 Days Qty: 10 0RF No Action albuterol sulfate [ProAir HFA] 90 mcg/actuation HFA aerosol inhaler 2 puff Inhalation Q6H PRN Qty: 1 0RF Rx Instructions: with spacer (DME) blood sugar diagnostic Strip 1 ea Miscellaneous BID Qty: 100 4RF Rx Instructions: One daily lisinopril 40 mg tablet 40 mg PO DAILY Qty: 90 4RF Hold Instructions: 04/23/[address] Painter at [facility]. -hb chlorthalidone 25 mg tablet 25 mg PO DAILY Qty: 90 4RF Hold Instructions: 04/23/[address] Painter at [facility]. -hb amlodipine 10 mg tablet 10 mg PO DAILY Qty: 90 4RF cholecalciferol (vitamin D3) 50 mcg (2,000 unit) capsule 2,000 unit PO DAILY Qty: 90 4RF Rx Instructions: Per nephrology (DME) blood-glucose meter [Telematikuch UltraMini] 1 EACH kit 1 ea Miscellaneous BID Qty: 1 0RF (DME) lancets [OneTouch Delica Lancets] 1 EACH misc 1 ea Miscellaneous BID Qty: 100 5RF metoprolol succinate 50 mg tablet extended release 24 hr See Rx Instructions .ROUTE .COMPLEX Qty: 60 4RF Dose Instruction: TAKE 1 TABLET BY MOUTH TWICE DAILY Rx Instructions: TAKE 1 TABLET BY MOUTH TWICE DAILY aspirin [Adult Low Dose Aspirin] 81 mg tablet,delayed release (DR/EC) 81 mg PO DAILY Rx Instructions: 04/23/[address] Painter at [facility]. -hb ezetimibe 10 mg tablet 10 mg PO DAILY Rx Instructions: 04/23/[address] Painter at [facility]. -hb prasugrel 10 mg tablet 10 mg PO DAILY Rx Instructions: 04/23/[address] Painter at [facility]. -hb nitroglycerin 0.4 mg tablet, sublingual 0.4 mg sublingual Q5M PRN Rx Instructions: 04/23/[address] Painter at [facility]. -hb do not exceed 3 doses per episode Repatha SureClick 140 mg/mL pen injector 140 mg subcut Q2W Rx Instructions: Prescribed by [facility] Dr. Jaquan Painter on 04/22/23. -hb Discharge Instructions Instructions: Influenza (ED) Additional Instructions: Drink plenty of fluids and take Tylenol and or ibuprofen as needed for pain. Mucinex DM usually works pretty well for bad cough. 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 Return to ED for severe difficulty breathing, vomiting and inability to keep fluids down, any other concerns Including crushing chest pain. Discharge Data Discharge Date/Time-TO BE ENTERED AT DEPARTURE: 04/28/23 19:59 HPI General Date/Time Provider Initiated Documentation: 04/28/23 17:49 . HPI Narrative: This 57 yo male pt. presents with a CC of cough and pleuritic CP that began earlier today around 1100. He says the discomfort is across his lower rib cage. He denies F, C rigors, SOB, ABD pain, NVD, dysuria, pedal edema, calf pain. He has a ESTEVEZ but no rash or stiff neck. He denies runny nose, congestion, or sore throat. The pt. states his lower anterior chest hurts when he takes a deep breath or coughs. It does not radiate into his back. Related Data Home Medications Medication Instructions Recorded Confirmed blood-glucose meter (Telematikuch ##1 06/04/17 04/28/23 UltraMini kit) lancets 33 gauge (OneTouch Delica #100 ea 06/04/17 04/28/23 Lancets) albuterol sulfate 90 mcg/actuation 2 puff inhalation Q6H PRN ##1 05/28/19 04/28/23 aerosol inhaler (ProAir HFA) blood sugar diagnostic #100 strips 08/27/19 04/28/23 amlodipine 10 mg tablet 10 mg PO DAILY #90 tab-caps 04/10/22 04/28/23 chlorthalidone 25 mg tablet 25 mg PO DAILY #90 tabs 04/10/22 04/28/23 lisinopril 40 mg tablet 40 mg PO DAILY #90 tab-caps 04/10/22 04/28/23 cholecalciferol (vitamin D3) 50 2,000 unit PO DAILY #90 caps 12/11/22 04/28/23 mcg (2,000 unit) capsule metoprolol succinate 50 mg See Rx Instructions .Route 04/01/23 04/28/23 tablet,extended release 24 hr .COMPLEX #60 tabs aspirin 81 mg tablet,delayed 81 mg PO DAILY 04/23/23 04/28/23 release (Adult Low Dose Aspirin) evolocumab 140 mg/mL subcutaneous 140 mg subcut Q2W 04/23/23 04/28/23 pen injector (Juany Montejo) ezetimibe 10 mg tablet 10 mg PO DAILY 04/23/23 04/28/23 nitroglycerin 0.4 mg sublingual 0.4 mg sublingual Q5M PRN 04/23/23 04/28/23 tablet prasugrel 10 mg tablet 10 mg PO DAILY 04/23/23 04/28/23 oseltamivir 75 mg capsule (Tamiflu) 75 mg PO BID 5 days #10 caps 04/28/23 Previous Rx's Medication Instructions Recorded blood-glucose meter (VaxInnate ##1 06/04/17 UltraMini kit) lancets 33 gauge (One Touch EMRTouch Delica #100 ea 06/04/17 Lancets) albuterol sulfate 90 mcg/actuation 2 puff inhalation Q6H PRN ##1 05/28/19 aerosol inhaler (ProAir HFA) blood sugar diagnostic #100 strips 08/27/19 amlodipine 10 mg tablet 10 mg PO DAILY #90 tab-caps 04/10/22 chlorthalidone 25 mg tablet 25 mg PO DAILY #90 tabs 04/10/22 lisinopril 40 mg tablet 40 mg PO DAILY #90 tab-caps 04/10/22 cholecalciferol (vitamin D3) 50 2,000 unit PO DAILY #90 caps 12/11/22 mcg (2,000 unit) capsule metoprolol succinate 50 mg See Rx Instructions .Route 04/01/23 tablet,extended release 24 hr .COMPLEX #60 tabs oseltamivir 75 mg capsule (Tamiflu) 75 mg PO BID 5 days #10 caps 04/28/23 Allergies Allergy/AdvReac Type Severity Reaction Status Date / Time atorvastatin AdvReac Mild Skin Rash Verified 04/28/23 17:41 rosuvastatin AdvReac Mild Skin Rash Verified 04/28/23 17:41 General Stated Complaint: SOB JASON: 3 Review of Systems Narrative: See HPI Exam Const General: no acute distress, well developed, well groomed and not in acute distress Nutritional Appearance: well nourished Orientation: alert and oriented x3 HENMT Head: normocephalic and atraumatic Ears: external ears normal Mouth: oropharynx normal and moist mucous membranes Throat: posterior oropharynx normal Eyes Conjunctivae: conjunctivae normal Neck Neck: full ROM and supple Chest Chest: normal inspection of the chest Resp Effort & Inspection: normal respiratory effort Auscultation: clear to auscultation bilaterally ( Except for trace rub) Cardio Rate: regular rate Rhythm: regular rhythm Heart Sounds: no murmurs and no rubs GI Inspection: normal to inspection (except for ecchymosis from heparin) and other (obese) Palpation: soft, nontender and other (non distended) Auscultation: normal bowel sounds Skin General skin exam: no rashes or lesions noted and other (pink, warm, dry) Neuro General: patient alert, patient awake and patient oriented x3 Speech: speech normal Motor: other (OSORIO) Sensory Exam: no sensory deficits noted Extrem General: normal to inspection, full ROM and pedal edema present Psych Mental Status: mental status grossly normal Speech and Movement: speech and movement normal Affect: normal affect Course Vital Signs Vital signs: Vital Signs Temperature 38.8 C H 04/28/23 17:10 Pulse 93 H 04/28/23 17:10 Respiratory Rate 26 H 04/28/23 17:10 Blood Pressure 124/70 04/28/23 17:10 Pulse Oximetry 96 04/28/23 17:10 Temperature 38.8 C H 04/28/23 17:34 Temperature Source Skin 04/28/23 17:34 Pulse 93 H 04/28/23 17:34 Respiratory Rate 24 04/28/23 17:34 Respiratory Effort Short of Breath 04/28/23 17:34 Respiratory Depth Normal 04/28/23 17:34 Respiratory Pattern Normal 04/28/23 17:34 Blood Pressure 124/70 04/28/23 17:34 Blood Pressure Position Sitting 04/28/23 17:34 Pulse Oximetry 96 04/28/23 17:34 Oxygen Delivery Method Room Air 04/28/23 17:34 Oxygen Flow Rate 0 04/28/23 17:34 Pain Level 8 04/28/23 17:34 Lab/Test Results Lab/Test Results: Laboratory Tests Range/Units 04/28/23 17:45 WBC (4.4-10.8) 10^3/uL 9.21 RBC (4.36-5.78) 10^6/uL 4.00 L Hgb (13.5-17.5) g/dL 12.4 L Hct (40.0-50.0) % 36.9 L MCV (80-95) fL 92 MCH (27.0-33.0) pg 31.0 MCHC (32.0-36.0) % 33.6 RDW (11.8-14.1) % 12.9 Plt Count (130-400) 10^3/uL 249 MPV (8.0-11.0) fL 10.3 Immature Gran % 0.8 Neutrophils % 78.8 Lymphocytes % 9.0 Monocytes % 7.7 Eosinophils % 2.5 Basophils % 1.2 Nucleated RBC % (0.0-0.3) % 0.0 Absolute Neutrophils (1.2-6.7) 10^3/uL 7.26 H Absolute Lymphocytes (1.2-3.4) 10^3/uL 0.83 L Absolute Monocytes (0.1-0.8) 10^3/uL 0.71 Absolute Eosinophils (0.0-0.7) 10^3/uL 0.23 Absolute Basophils (0.0-0.2) 10^3/uL 0.11 Medical Decision Making The patient was positive for influenza. His test results were discussed with him. 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 His creatinine here today was 3.7. I did give him Tamiflu. Medical Records Medical records reviewed: Yes I reviewed the patient's medical records. Imaging Data Radiologic Study: Attestation: I personally reviewed and interpreted this imaging study as follows: Imaging: X-Ray (CXR: NAD) Lab Data Lab results reviewed: Yes I reviewed the patient's lab results. Lab results narrative: Patient's troponin today is 2340 which is down from last weekend when he had an DC and stent. His H&H are mildly decreased. VBG is 7.36 with a pCO2 of 34 and bicarb of 19. His anion gap today is 13.3 and his BUN and creatinine are 49 and 3.7. Patient to drink plenty of fluids. Tamiflu. ECG Data Attestation: I personally reviewed and interpreted this ECG (s) as follows: ( EKG: Normal sinus rhythm at 80, low voltage, early R wave progression, otherwise normal intervals and EKG except for nonspecific T wave flattening laterally) Quality:SDOH Health Related Social Needs: No Data to Display PFSH All Active Problems (Updated 04/28/23 @ 19:31 by Estephania Erwin MD) Influenza A (Acute) Acute ST elevation myocardial infarction (STEMI) of posterior wall (Acute) Chest pain at rest (Acute) Right carotid bruit (Acute) Stage 4 chronic kidney disease (Acute) Hyperlipidemia (Acute) Type 2 diabetes mellitus without complications (Chronic) Smoker (Chronic 05/19/15) 2020- PPD hx Obstructive sleep apnea syndrome (Chronic) Gout (Chronic 03/25/12) Essential hypertension (Chronic 04/28/15) Medical History Renal insufficiency (04/01/15) [facility]- no longer following Cannot afford their visits Nicotine dependence Lichen sclerosus of penis (04/15/15) Surgical History Appendectomy (~11/2009) Family History Mother No problems noted. Father Hyperlipidemia Stroke Brother Diabetes Asthma Social History Smoking/Tobacco Use Status: Former Tobacco Use Tobacco: How many years used: 40 Quit status: not considering quitting Second Hand Exposure: Yes Counseling given: provider counseling Smoking risk assessment performed?: Yes Alcohol Intake: former Drug use: Current Sobriety Substance use type: does not use Household members: none Housing: house Communication Needs: None Do you need help understanding health information?: Never current occupation: [employer] Pets and animals: No Sexually active: Yes Do you think of yourself as: straight/heterosexual Current gender identity: male What is your relationship status?: How often do you talk on the phone with friends or family?: once per week How often do you get together with friends or relatives?: once per week How often do you attend moravian or mandaen services?: 1-3 times per year Do you belong to any clubs or organized social groups?: no Panel score (0-1 are the most socially isolated patients): 0 What type of physical activity do you participate in: none [place]/Synagogue: Buddhism Seatbelt use: never Helmet use: Yes Helmet use: sometimes Drive intox 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
[2023-04-28 18:18] LABS: ALT 23 U/L (16-63); AST 15 U/L (15-37); Albumin 3.3 g/dL (3.4-5.0); Alkaline Phosphatase 47 U/L (46-116); Anion Gap 13.3 mmol/L (3-11); BUN 49 mg/dL (7-18); Bilirubin, Total 0.3 mg/dL (0.2-1.0); CO2 20.7 mmol/L (21.0-32.0); Calcium 8.6 mg/dL (8.5-10.1); Chloride 111 mmol/L (98-107); Estimated GFR 18.15 (mL/min/1.73m2); Glucose 85 mg/dL (74-106); Magnesium 1.9 mg/dL (1.8-2.4); Potassium 4.2 mmol/L (3.5-5.1); Sodium 145 mmol/L (136-145); Total Protein 7.2 g/dL (6.4-8.2)
[2023-04-28 18:24] LABS: CREATININE 3.7 mg/dL (0.70-1.30)
[2023-04-28 18:25] LABS: Troponin I 2340 ng/L (< or =60)
[2023-04-28 18:39] LABS: COVID-19 PCR Negative (Negative); Influenza A PCR Positive (Negative); Influenza B PCR Negative (Negative); RSV PCR Negative (Negative)
[2023-04-28 18:40] LABS: Source Nasopharynx
[2023-04-28 19:07] LABS: BE (Venous) -6 mmol/L (-2-3); HCO3 (Venous) 19 mmol/L (23-28); O2 Sat (Venous) 92 %; TCO2 (Venous) 18 mmol/L (24-29); pCO2 (Venous) 34 mmHg (41-51); pH (Venous) 7.36 (7.31-7.41); pO2 (Venous) 58 mmHg
[2023-04-28 19:08] LABS: Lactate 1.2 mmol/L (0.6-1.4)
[2023-04-28] MEDS: Normal Saline 1,000 ML 2000 ML IV (19:15)
[2023-04-28] MEDS: cefTRIAXone 1 GM/50 ML BAG IVPB (19:22)
[2023-04-28] MEDS: Oseltamivir 75 MG CAP PO (19:55)
[2023-04-28 19:58] VITALS: BP 127/61; PULSE 89; RESP 22; TEMP 38.8; O2SAT 97
--- NOTE | 2023-04-28 20:04 | DI.VRAD_ITS ---
PROCEDURE INFORMATION: Exam: XR Chest Exam date and time: 04/28/2023 6:39 PM Age: 57 years old Clinical indication: Other: Cough, pleuritic cp TECHNIQUE: Imaging protocol: Radiologic exam of the chest. Views: 2 views. COMPARISON: CR XR PORTABLE CHEST AP 04/20/2023 8:03 PM FINDINGS: Lungs: Bilateral [id number] hyperinflation. No consolidation. Pleural spaces: Unremarkable. No pleural effusion. No pneumothorax. Heart/Mediastinum: Unremarkable. No cardiomegaly. Bones/joints: Unremarkable. IMPRESSION: 1. Nonspecific bilateral [id number] hyperinflation. 2. No infiltrates or edema. 3. No acute pleural change. Dictated and Authenticated by: Nate Christiansen MD. Ordering:IGNACIO Best MD
== END 2023-04-28 19:59 | disposition home or self-care (01) ==
PROVIDERS: Emergency Provider Emergency Medicine; PCP Nurse Practitioner Family
DX: J10.1 Influenza due to other identified influenza virus with other respiratory manifestations (principal); I25.2 Old myocardial infarction; Z11.52 Encounter for screening for COVID-19; Z79.82 Long term (current) use of aspirin; Z95.5 Presence of coronary angioplasty implant and graft
CPT/HCPCS: 80053; 82805; 87040; 87637; 93005; 96365; 99285; 71046; 83605; 83735; 84484; 85025; 93010; 99284; J0696

== ENCOUNTER 2023-07-26 11:00 | Outpatient (RCR) | payer OTHER, SELFPAY | END 2023-07-26 23:59 | disposition home or self-care (01) | LOC: CR 11:00 | PROVIDERS: PCP Nurse Practitioner Family; Visit Provider Internal Medicine Cardiovascular Disease | DX: I21.29 ST elevation (STEMI) myocardial infarction involving other sites (principal); Z95.5 Presence of coronary angioplasty implant and graft; Z51.89 Encounter for other specified aftercare | CPT/HCPCS: S9472 ==

== ENCOUNTER 2023-08-02 05:13 | Outpatient (CLI) | payer OTHER, SELFPAY ==
[2023-08-02 12:42] LABS: HCT 41.3 % (40.0-50.0); HGB 13.4 g/dL (13.5-17.5); MCH 30.6 pg (27.0-33.0); MCHC 32.4 % (32.0-36.0); MCV 94 fL (80-95); MPV 10.4 fL (8.0-11.0); Platelet Count 186 10^3/uL (130-400); RBC 4.38 10^6/uL (4.36-5.78); RDW 12.8 % (11.8-14.1); RDW-SD 44.3 fL; WBC 8.28 10^3/uL (4.4-10.8)
[2023-08-02 13:12] LABS: ALT 26 U/L (16-63); AST 12 U/L (15-37); Albumin 3.8 g/dL (3.4-5.0); Alkaline Phosphatase 60 U/L (46-116); Anion Gap 13.6 mmol/L (3-11); BUN 35 mg/dL (7-18); Bilirubin, Total 0.4 mg/dL (0.2-1.0); CO2 21.4 mmol/L (21.0-32.0); Calcium 8.7 mg/dL (8.5-10.1); Calculated LDL 48 mg/dL (<100); Chloride 110 mmol/L (98-107); Cholesterol 98 mg/dL (<200); Estimated GFR 18.64 (mL/min/1.73m2); Glucose 106 mg/dL (74-106); HDL Cholesterol 35 mg/dL (40-60); Hemoglobin A1C 6.2 % (<5.7); Potassium 3.9 mmol/L (3.5-5.1); Sodium 145 mmol/L (136-145); Total Protein 7.4 g/dL (6.4-8.2); Triglyceride 77 mg/dL (<150)
[2023-08-02 13:15] LABS: CREATININE 3.6 mg/dL (0.70-1.30)
== END 2023-08-02 05:14 | disposition home or self-care (01) ==
LOC: LOS 05:14
PROVIDERS: PCP Nurse Practitioner Family; Visit Provider Nurse Practitioner Family
DX: E78.5 Hyperlipidemia, unspecified (principal); E11.9 Type 2 diabetes mellitus without complications; R53.83 Other fatigue
CPT/HCPCS: 36415; 80053; 80061; 85027; 83036

== ENCOUNTER 2023-08-21 13:04 | Outpatient (RCR) | payer OTHER, SELFPAY | END 2023-08-25 23:59 | disposition home or self-care (01) | LOC: CR 13:04 | PROVIDERS: PCP Nurse Practitioner Family; Visit Provider Internal Medicine Cardiovascular Disease | DX: I21.3 ST elevation (STEMI) myocardial infarction of unspecified site (principal) | CPT/HCPCS: S9472 ==

== ENCOUNTER 2023-09-25 13:22 | Outpatient (RCR) | payer OTHER, SELFPAY | END 2023-09-25 23:59 | disposition home or self-care (01) | LOC: CR 13:22 | PROVIDERS: PCP Nurse Practitioner Family; Visit Provider Internal Medicine Cardiovascular Disease | DX: I21.3 ST elevation (STEMI) myocardial infarction of unspecified site (principal); Z95.5 Presence of coronary angioplasty implant and graft | CPT/HCPCS: S9472 ==

== ENCOUNTER 2023-10-23 13:00 | Outpatient (RCR) | payer OTHER, SELFPAY | END 2023-10-26 23:59 | disposition home or self-care (01) | LOC: CR 13:00 | PROVIDERS: PCP Nurse Practitioner Family; Visit Provider Internal Medicine Cardiovascular Disease | DX: I21.4 Non-ST elevation (NSTEMI) myocardial infarction (principal); Z95.5 Presence of coronary angioplasty implant and graft; Z51.89 Encounter for other specified aftercare | CPT/HCPCS: S9472 ==

== ENCOUNTER 2023-11-13 13:10 | Outpatient (RCR) | payer OTHER, SELFPAY | END 2023-11-25 23:59 | disposition home or self-care (01) | LOC: CR 13:10 | PROVIDERS: PCP Nurse Practitioner Family; Visit Provider Internal Medicine Cardiovascular Disease | DX: I21.4 Non-ST elevation (NSTEMI) myocardial infarction (principal); Z51.89 Encounter for other specified aftercare | CPT/HCPCS: S9472 ==

== ENCOUNTER 2023-12-13 20:42 | Emergency (ER) | payer OTHER, SELFPAY ==
[2023-12-13] VITALS (27 sets, daily range): BP systolic 142–199; BP diastolic 65–90; PULSE 56–69; RESP 11–28; TEMP 36.9; O2SAT 95–97
--- NOTE | 2023-12-13 20:30 | RT.EKG_ITS ---
APPROVED REPORT Exam: Resting ECG Reason for Exam: short of breath Patient Location: E HR:65 bpm ECG Measurements Heart Rate 65 AXIS [place] 178 P 76 QRSd 100 QRS 5 QT 449 T 77 QTc 466 Conclusion Sinus rhythm...normal P axis, V-rate 60- 99 Sinus rhythm normal axis normal intervals no acute ischemic changes
--- NOTE | 2023-12-13 21:01 | DI.CT_ITS ---
Exam(s) CT CHEST/ABD/PEL WO EXAM: CT CHEST/ABD/PEL WO CLINICAL HISTORY: chest pain radiating to back, h/o AL TECHNIQUE: Imaging Protocol: Axial computed tomography images with coronal and sagittal reformatted images were created and reviewed COMPARISON: CT ABD PELVIS WITH CONTRAST from 12/22/[address] CHEST LUNG CANCER SCREEN from 05/22/2022 FINDINGS: CHEST: Tracheobronchial tree: Patent where visualized. No bronchiectasis. Pulmonary parenchyma: There is a ground-glass infiltrate seen in the right lower lobe medially. No f ocal consolidating infiltrates are seen. No pulmonary nodules are present. No architectural distort ion. Mediastinum and Nanda: No dominant adenopathy or fluid collection. The esophagus is unremarkable. Thyroid gland: Unremarkable. Pleura: No effusion or pneumothorax. Heart: The heart is not dilated. Coronary artery calcifications are present. No pericardial effusion . Aorta: Thoracic aorta non-dilated. Atherosclerotic calcifications are present. Lymph nodes: Within normal limits. Bones:Within normal limits for the patient's age. Soft tissues: Unremarkable. ABDOMEN: Liver: Normal density. No measurable mass. Gallbladder and Biliary Tract: No radiodense calculus or dilation. Pancreas: Normal density, no abnormal calcifications or inflammatory process. Spleen: Normal. Adrenals: No masses seen. Kidneys: Normal size, contour and axis. No radiodense stones or obstructive uropathy. There is a cyst in the lower pole of the right kidney. No follow-up is recommended. Abdominal Aorta: Abdominal portion non-dilated. Atherosclerotic calcification is present. Bowel: No obstruction or bowel wall thickening. There has been a prior appendectomy. Peritoneal Cavity: No ascites, collection or mesenteric inflammatory response. No free air. Lymph Nodes: Within normal limits. Bones: Within normal limits for the patient's age. Soft Tissues: Unremarkable. PELVIS: Bladder: Symmetric distention, no gross wall thickening. Reproductive Organs: Unremarkable as visualized. Lymph Nodes: Within normal limits. Bones: Within normal limits for the patient's age. IMPRESSION: 1. Ground-glass infiltrate in the right lower lobe. Infection cannot be excluded. Please correlate clinically. 2. No acute abdominal or pelvic process. RADIATION DOSE DELIVERED: 721.34mGy.cm Total DLP 721.34mGy.cm Total DLP DATA REPOSITORY: All CT scans at this facility are submitted to the National Radiology Data Registry (NRDR) Dose Index Registry (DIR) with the [employer] (ACR). RADIATION OPTIMIZATION: All CT scans at this facility use at least one of these dose optimization te chniques: automated exposure control; mA and/or kV adjustment per patient size (includes targeted exa ms where dose is matched to clinical indication); or iterative reconstruction.
--- NOTE | 2023-12-13 21:07 | W.ED.GENAD ---
Discharge Plan Discharge Details Chief Complaint: Chest Pain Primary Care Provider: Maximus Esposito ED Provider: Gretel Anthony Home Meds and New Rx's Prescriptions: No Action allopurinol 100 mg tablet 100 mg PO DAILY albuterol sulfate [ProAir HFA] 90 mcg/actuation HFA aerosol inhaler 2 puff Inhalation Q6H PRN Qty: 1 0RF Rx Instructions: with spacer (DME) blood sugar diagnostic Strip 1 ea Miscellaneous BID Qty: 100 4RF Rx Instructions: One daily cholecalciferol (vitamin D3) 50 mcg (2,000 unit) capsule 2,000 unit PO DAILY Qty: 90 4RF Rx Instructions: Per nephrology Repatha SureClick 140 mg/mL pen injector 140 mg subcut Q2W Qty: 2 5RF Rx Instructions: Prescribed by [facility] Cardiology Dr. Jaquan Painter on 04/22/23. -hb (DME) blood-glucose meter [Embedded Chatuch UltraMini] 1 EACH kit 1 ea Miscellaneous BID Qty: 1 0RF (DME) lancets [OneTouch Delica Lancets] 1 EACH misc 1 ea Miscellaneous BID Qty: 100 5RF metoprolol succinate 50 mg tablet extended release 24 hr See Rx Instructions .ROUTE .COMPLEX Qty: 60 4RF Dose Instruction: TAKE 1 TABLET BY MOUTH TWICE DAILY Rx Instructions: TAKE 1 TABLET BY MOUTH TWICE DAILY nitroglycerin 0.4 mg tablet, sublingual 0.4 mg sublingual Q5M PRN Rx Instructions: 04/23/[address] Painter at [facility] Cardiology. -hb do not exceed 3 doses per episode aspirin [Adult Low Dose Aspirin] 81 mg tablet,delayed release (DR/EC) 81 mg PO DAILY Qty: 90 3RF Rx Instructions: 04/23/[address] Painter at [facility] Cardiology. -hb ezetimibe 10 mg tablet 10 mg PO DAILY Qty: 90 3RF Rx Instructions: 04/23/[address] Painter at [facility] Cardiology. -hb prasugrel 10 mg tablet 10 mg PO DAILY Qty: 90 3RF Rx Instructions: 04/23/[address] Painter at [facility] Cardiology. -hb losartan 100 mg tablet 100 mg PO DAILY Qty: 90 0RF Rx Instructions: dose increase amlodipine 10 mg tablet 10 mg PO DAILY Qty: 90 4RF HPI General Date/Time Provider Initiated Documentation: 12/13/23 20:50. HPI Narrative: Chucky is a 58-year-old male who presents to the emergency department today for evaluation of shortness of breath or chest pain that radiates the back. He reports that symptoms started around the time he got ready for bed, he said that he had sudden worsening of baseline shortness of breath (which has been gradually worsening since his STEMI) and the feeling of a lump in his throat that made him scared to lay down to sleep. At approximately 8:15 PM he developed a sternal chest pain that radiated down to his lower back, this resolved after taking a nitroglycerin. This was accompanied by nausea but no vomiting/parasthesias/jaw pain/dizziness. He developed a headache after taking the nitroglycerin, says that breathing continues to feel tight but his chest pain has fully resolved. Shortness of breath is now comparable to yesterday. He denies recent fever/chills, vision changes, extremity weakness/numbness, cough, abdominal pain, change in bowel or bladder function, pedal edema. He does have a history of T2DM, STEMI, stage IV CKD, HTN. Recently completed cardiac rehab, says his breathing has gotten worse since then. He admits to former tobacco use. No known AAA or family history of cardiac disease. Physical exam reassuring. End expiratory wheezes noted on auscultation. Easy work of breathing. Normal heart sounds. Radial pulses 2+ bilaterally. Abdomen is soft, nondistended, nontender to palpation. No obvious pulsatile masses. No pedal edema. BPs taken on R and L arms roughly equal (160/88 vs 168/90). DDx includes but is not limited to: ACS, cardiac arrhythmia, AAA, aortic dissection, CHF, PNA, esophageal spasm/esophagitis, GERD. Lower suspicion for aortic dissection based on resolution of symptoms and lack of neuro symptoms/pulse deficit. Heart score 4, indicating moderate risk of MACE. I independently interpreted the following tests: EKG reassuring, normal sinus rhythm rate 65, no changes consistent with acute ischemia. Unchanged from previous. CBC and CMP largely reassuring. BNP very elevated at 2,544 (increased from previous 788 on 04/20/23). Initial troponin 42, followed by a 1 hour troponin of 39. I did review patient's records, including recent echo performed at [facility] on 10/14/2023. Per summary: This was remarkable for mild dilation of the left ventricle with reduced systolic function, EF 44%. RV normal size and systolic function. There is aortic valve sclerosis without stenosis and moderate aortic regurgitation. There is mild to moderate mitral regurgitation. LV function appears similar compared to prior study from 04/21/2023, though AR is more prominent at this time. I also reviewed discharge summary from [facility] after admission from 04/20/2023 to 04/22/2023. He was diagnosed with STEMI after presentation to [facility] transferred to [facility], where he was found to have 100% occlusion to the LCx. PCI with balloon angioplasty and stenting was performed. Related Data Home Medications ?Medication ?Instructions ?Recorded ?Confirmed blood-glucose meter (Embedded Chatuch ##1 06/04/17 12/13/23 UltraMini kit) lancets 33 gauge (Freight ConnectionTouch Delica #100 ea 06/04/17 12/13/23 Lancets) blood sugar diagnostic #100 strips 08/27/19 12/13/23 cholecalciferol (vitamin D3) 50 2,000 unit PO DAILY #90 caps 12/11/22 12/13/23 mcg (2,000 unit) capsule metoprolol succinate 50 mg See Rx Instructions .Route 04/01/23 12/13/23 tablet,extended release 24 hr .COMPLEX #60 tabs nitroglycerin 0.4 mg sublingual 0.4 mg sublingual Q5M PRN 04/23/23 12/13/23 tablet albuterol sulfate 90 mcg/actuation 2 puff inhalation Q6H PRN ##1 04/30/23 12/13/23 aerosol inhaler (ProAir HFA) allopurinol 100 mg tablet 100 mg PO DAILY 04/30/23 12/13/23 aspirin 81 mg tablet,delayed 81 mg PO DAILY #90 tabs 10/01/23 12/13/23 release (Adult Low Dose Aspirin) ezetimibe 10 mg tablet 10 mg PO DAILY #90 tabs 10/01/23 12/13/23 losartan 100 mg tablet 100 mg PO DAILY #90 tabs 10/01/23 12/13/23 prasugrel 10 mg tablet 10 mg PO DAILY #90 tabs 10/01/23 12/13/23 amlodipine 10 mg tablet 10 mg PO DAILY #90 tab-caps 10/04/23 12/13/23 evolocumab 140 mg/mL subcutaneous 140 mg subcut Q2W #2 mL 10/15/23 12/13/23 pen injector (Repatha SureClick) Previous Rx's ?Medication ?Instructions ?Recorded blood-glucose meter (Freight ConnectionTouch ##1 06/04/17 UltraMini kit) lancets 33 gauge (OneTouch Delica #100 ea 06/04/17 Lancets) blood sugar diagnostic #100 strips 08/27/19 cholecalciferol (vitamin D3) 50 2,000 unit PO DAILY #90 caps 12/11/22 mcg (2,000 unit) capsule metoprolol succinate 50 mg See Rx Instructions .Route 04/01/23 tablet,extended release 24 hr .COMPLEX #60 tabs albuterol sulfate 90 mcg/actuation 2 puff inhalation Q6H PRN ##1 04/30/23 aerosol inhaler (ProAir HFA) aspirin 81 mg tablet,delayed 81 mg PO DAILY #90 tabs 10/01/23 release (Adult Low Dose Aspirin) ezetimibe 10 mg tablet 10 mg PO DAILY #90 tabs 10/01/23 losartan 100 mg tablet 100 mg PO DAILY #90 tabs 10/01/23 prasugrel 10 mg tablet 10 mg PO DAILY #90 tabs 10/01/23 amlodipine 10 mg tablet 10 mg PO DAILY #90 tab-caps 10/04/23 evolocumab 140 mg/mL subcutaneous 140 mg subcut Q2W #2 mL 10/15/23 pen injector (Repatha SureClick) Allergies Allergy/AdvReac Type Severity Reaction Status Date / Time atorvastatin AdvReac Mild Skin Rash Verified 12/13/23 21:04 rosuvastatin AdvReac Mild Skin Rash Verified 12/13/23 21:04 General Stated Complaint: Chest Pain JASON: 2 Review of Systems Narrative: see HPI Exam Const General: cooperative, healthy appearing, comfortable, no acute distress, well developed and well groomed Nutritional Appearance: overweight Orientation: alert and oriented x3 Chest Chest: normal inspection of the chest Resp Effort & Inspection: normal respiratory effort and able to speak in complete sentences Auscultation: wheezes (end exp wheezes) Cardio Rate: regular rate Rhythm: regular rhythm Pulses: radial pulses present GI Inspection: normal to inspection and no visible pulsation Palpation: soft, not firm, no guarding, no pulsatile masses, not rigid and nontender Auscultation: normal bowel sounds Extrem General: no pedal edema Course Vital Signs Vital signs: Vital Signs Temperature 36.9 C 12/13/23 20:45 Pulse 67 12/13/23 20:45 Respiratory Rate 17 12/13/23 20:45 Blood Pressure 199/73 H 12/13/23 20:45 Pulse Oximetry 95 12/13/23 20:45 Temperature 36.9 C 12/13/23 20:45 Temperature Source Oral 12/13/23 20:45 Pulse 67 12/13/23 20:45 Respiratory Rate 17 12/13/23 20:45 Respiratory Effort Short of Breath 12/13/23 21:03 Blood Pressure 199/73 H 12/13/23 20:45 Pulse Oximetry 95 12/13/23 20:45 Oxygen Delivery Method Room Air 12/13/23 20:45 Oxygen Flow Rate 0 12/13/23 20:45 Pain Level 3 12/13/23 20:45 Medical Decision Making Quality:SDOH Health Related Social Needs: No Data to Display PFSH All Active Problems (Updated 08/17/23 @ 12:56 by Maximus Sanchez NP) Fatigue (Acute) STEMI (ST elevation myocardial infarction) (Acute) Chest pain at rest (Acute) Right carotid bruit (Acute) Stage 4 chronic kidney disease (Acute) Hyperlipidemia (Acute) Type 2 diabetes mellitus without complications (Chronic) Obstructive sleep apnea syndrome (Chronic) Gout (Chronic 03/25/12) Essential hypertension (Chronic 04/28/15) Medical History (Updated 08/17/23 @ 12:56 by Maximus Sanchez NP) Smoker (05/19/15) 2020- 39 PPD hx Renal insufficiency (04/01/15) [facility]- no longer following Cannot afford their visits Nicotine dependence Lichen sclerosus of penis (04/15/15) Surgical History Appendectomy (~11/2009) Family History Mother No problems noted. 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 Pets and animals: No Sexually active: Yes Do you think of yourself as: straight/heterosexual Current gender identity: male What is your relationship status?: How often do you talk on the phone with friends or family?: once per week How often do you get together with friends or relatives?: once per week How often do you attend anabaptist or hindu services?: 1-3 times per year Do you belong to any clubs or organized social groups?: no Panel score (0-1 are the most socially isolated patients): 0 What type of physical activity do you participate in: none Lorena/Quaker: Rastafarian Seatbelt use: never Helmet use: Yes Helmet use: sometimes Drive intox or ride w/intox construction driver: No Do you feel safe in your relationship?: Yes
[2023-12-13] MEDS: Albuterol/Ipratropium 3 ML UPD VIAL UPD (21:14)
[2023-12-13 21:15] LABS: Abs Immature Grans 0.03 10^3/uL (0.0-0.06); Absolute Basophil Count 0.07 10^3/uL (0.0-0.2); Absolute Eosinophil Count 0.25 10^3/uL (0.0-0.7); Absolute Lymphocyte Count 1.68 10^3/uL (1.2-3.4); Absolute Monocyte Count 0.51 10^3/uL (0.1-0.8); Absolute Neutrophil Count 6.61 10^3/uL (1.2-6.7); Basophils % 0.8 %; Eosinophils % 2.7 %; HCT 41.9 % (40.0-50.0); HGB 13.7 g/dL (13.5-17.5); Immature Grans % 0.3 %; Lymphocytes % 18.4 %; MCH 30.1 pg (27.0-33.0); MCHC 32.7 % (32.0-36.0); MCV 92 fL (80-95); MPV 10.6 fL (8.0-11.0); Monocytes % 5.6 %; Neutrophils % 72.2 %; Platelet Count 164 10^3/uL (130-400); RBC 4.55 10^6/uL (4.36-5.78); RDW 12.6 % (11.8-14.1); RDW-SD 41.9 fL; WBC 9.15 10^3/uL (4.4-10.8)
[2023-12-13 21:37] LABS: ALT 21 U/L (16-63); AST 22 U/L (15-37); Albumin 3.4 g/dL (3.4-5.0); Alkaline Phosphatase 83 U/L (46-116); Anion Gap 12.1 mmol/L (3-11); BUN 42 mg/dL (7-18); Bilirubin, Total 0.45 mg/dL (0.2-1.0); CO2 23.9 mmol/L (21.0-32.0); CREATININE 3.4 mg/dL (0.70-1.30); Calcium 8.3 mg/dL (8.5-10.1); Chloride 110 mmol/L (98-107); Estimated GFR 19.96 (mL/min/1.73m2); Glucose 157 mg/dL (74-106); Magnesium 2.1 mg/dL (1.8-2.4); NT-proBNP 2544 pg/mL (<300); Potassium 3.9 mmol/L (3.5-5.1); Sodium 146 mmol/L (136-145); Total Protein 7.5 g/dL (6.4-8.2); Troponin I 42 ng/L (<or=76)
[2023-12-13 22:08] LABS: COVID-19 PCR Negative (Negative); Influenza A PCR Negative (Negative); Influenza B PCR Negative (Negative); RSV PCR Negative (Negative)
[2023-12-13 22:09] LABS: Source NASOPHARYNX
[2023-12-13 22:45] LABS: Troponin I 39 ng/L (<or=76)
--- NOTE | 2023-12-13 23:32 | W.EDPROG ---
Date of service: 12/13/23 Time of Service: 23:32 Medical Decision Making This patient was signed out to me. Please see previous notes for H&P and initial eval. In brief, 58yo M with T2DM, CKD, KATIE, STEMI in March of this year with stent placed, presenting for chest pain and shortness of breath. Chest pain resolved after dose of nitro at home. EKG and troponins reassuring, BNP newly elevated. Signed out pending radiology read on non-contrasted CT C/A/P. Chart reviewed; 04/20/23 had lateral STEMI with 100% mLCX occlusion with balloon angioplasty and stent, as well as mild stenosis of LAD & RCA. Echo at [facility] prior to discharge showed EF of 44%. On my assessment patient reports intermittent mild chest pressure coming and going while in the ED. Currently 1/10, non-radiating, dull substernal pressure. No back pain or UE numbness. He does report ongoing mild shortness of breath. He reports tonight is the first time he has needed to take his nitroglycerin, has not had chest pain like this since hospital discharge after his heart attack. In no distress on exam, 2+ radial pulses, sensation and strength intact and symmetric BLE, 2+ symmetric radial pulses. O2 sat 93% on room air while sleeping, up to 95% when awake. With current mild dull substernal non-radiating pain and no other symptoms to suggest aortic dissection, low likelihood though not impossible. CT was performed non-contrast due to CKD with baseline poor renal function. Bedside echo very limited 2/t body habitus, protuberant abdomen, and lung pratt however within limits of exam no obvious dissection flap and no pericardial effusion on subxiphoid and parasternal views; unable to evaluate abdominal aorta. CT read as below, consistent with pulmonary edema. 3 hour troponin reassuring. Given cardiac history, ongoing/intermittent chest pain, and rising BNP/pulmonary edema on CT concerning for new heart failure, [facility] cardiology consult called. Spoke with cardiology Dr. Garza; advised imdur 20mg TID, hydralazine 25mg TID, and lasix 40mg x 1 as well as holding home metoprolol. Accepted to [facility] under Dr. Freitas, pending bed availability (possibly overnight but may be this afternoon). [facility] called with bed assignment; [facility] unable to transport until 0700 this morning. Reepat EKG with no occlusive ischemic changes Will remain in the ED awaiting transport, planned for ~0715 Medical Records Medical records reviewed: Yes I reviewed the patient's medical records. Imaging Data Radiologic Study: Imaging: CT Scan Radiologist's impression: Chest: IMPRESSION: 1. Patchy mild alveolar opacities in the right upper lobe posterior segment and right lower lobe superior segment which could represent mild pulmonary infiltrates versus edema or subsegmental atelectasis. 2. Bilateral interlobular septal thickening suspicious for an element of interstitial pulmonary edema. 3. Moderate coronary artery calcification, greatest in the circumflex distribution. 4. Additional nonemergent findings detailed above. Abd/Pelvis: IMPRESSION: 1. No acute process is evident. 2. Slight liver contour irregularity in the right lobe suspicious for mild changes of cirrhosis. No significant evidence of portal hypertension or portosystemic shunting. 3. Moderate stool in the mid to proximal colon, possible constipation. 4. Additional nonemergent findings detailed above. Lab Data Lab results reviewed: Yes I reviewed the patient's lab results. Labs: Laboratory Tests Range/Units 12/13/23 12/13/23 12/13/23 20:55 21:10 22:05 WBC (4.4-10.8) 10^3/uL 9.15 RBC (4.36-5.78) 10^6/uL 4.55 Hgb (13.5-17.5) g/dL 13.7 Hct (40.0-50.0) % 41.9 MCV (80-95) fL 92 MCH (27.0-33.0) pg 30.1 MCHC (32.0-36.0) % 32.7 RDW (11.8-14.1) % 12.6 Plt Count (130-400) 10^3/uL 164 MPV (8.0-11.0) fL 10.6 Immature Gran % % 0.3 Neutrophils % % 72.2 Lymphocytes % % 18.4 Monocytes % % 5.6 Eosinophils % % 2.7 Basophils % % 0.8 Nucleated RBC % (0.0-0.3) % 0.0 Absolute Neutrophils (1.2-6.7) 10^3/uL 6.61 Absolute Lymphocytes (1.2-3.4) 10^3/uL 1.68 Absolute Monocytes (0.1-0.8) 10^3/uL 0.51 Absolute Eosinophils (0.0-0.7) 10^3/uL 0.25 Absolute Basophils (0.0-0.2) 10^3/uL 0.07 Sodium (136-145) mmol/L 146 H Potassium (3.5-5.1) mmol/L 3.9 Chloride (98-107) mmol/L 110 H Carbon Dioxide (21.0-32.0) mmol/L 23.9 Anion Gap (3-11) mmol/L 12.1 H BUN (7-18) mg/dL 42 H Creatinine (0.70-1.30) mg/dL 3.4 H Est GFR (CKD-EPI 2020) (mL/min/1.73m2) 19.96 Glucose (74-106) mg/dL 157 H Calcium (8.5-10.1) mg/dL 8.3 L Magnesium (1.8-2.4) mg/dL 2.1 Total Bilirubin (0.2-1.0) mg/dL 0.45 AST (15-37) U/L 22 ALT (16-63) U/L 21 Alkaline Phosphatase (46-116) U/L 83 Troponin I (<or=76) ng/L 42 39 NT-Pro-B Natriuret Pep (<300) pg/mL 2544 H Total Protein (6.4-8.2) g/dL 7.5 Albumin (3.4-5.0) g/dL 3.4 COVID-19 Source NASOPHARYNX SARS-CoV-2 (PCR) (Negative) Negative Influenza Type A (PCR) (Negative) Negative Influenza Type B (PCR) (Negative) Negative RSV (PCR) (Negative) Negative Range/Units 12/13/23 23:31 WBC (4.4-10.8) 10^3/uL RBC (4.36-5.78) 10^6/uL Hgb (13.5-17.5) g/dL Hct (40.0-50.0) % MCV (80-95) fL MCH (27.0-33.0) pg MCHC (32.0-36.0) % RDW (11.8-14.1) % Plt Count (130-400) 10^3/uL MPV (8.0-11.0) fL Immature Gran % % Neutrophils % % Lymphocytes % % Monocytes % % Eosinophils % % Basophils % % Nucleated RBC % (0.0-0.3) % Absolute Neutrophils (1.2-6.7) 10^3/uL Absolute Lymphocytes (1.2-3.4) 10^3/uL Absolute Monocytes (0.1-0.8) 10^3/uL Absolute Eosinophils (0.0-0.7) 10^3/uL Absolute Basophils (0.0-0.2) 10^3/uL Sodium (136-145) mmol/L Potassium (3.5-5.1) mmol/L Chloride (98-107) mmol/L Carbon Dioxide (21.0-32.0) mmol/L Anion Gap (3-11) mmol/L BUN (7-18) mg/dL Creatinine (0.70-1.30) mg/dL Est GFR (CKD-EPI 2020) (mL/min/1.73m2) Glucose (74-106) mg/dL Calcium (8.5-10.1) mg/dL Magnesium (1.8-2.4) mg/dL Total Bilirubin (0.2-1.0) mg/dL AST (15-37) U/L ALT (16-63) U/L Alkaline Phosphatase (46-116) U/L Troponin I (<or=76) ng/L NT-Pro-B Natriuret Pep (<300) pg/mL Total Protein (6.4-8.2) g/dL Albumin (3.4-5.0) g/dL COVID-19 Source Cancelled SARS-CoV-2 (PCR) (Negative) Cancelled Influenza Type A (PCR) (Negative) Cancelled Influenza Type B (PCR) (Negative) Cancelled RSV (PCR) (Negative) Cancelled Quality:SDOH Health Related Social Needs: No Data to Display Sign Out Sign Out Data: Sign Out Comment: 58-year-old male with history of STEMI presents to emergency department today for evaluation of sudden onset of lump in throat, followed by acutely worsening shortness of breath and sternal chest pain radiating to lower back. He took 1 nitro and drove to emergency department, symptoms fully resolved by arrival to ED. He has returned to baseline shortness of breath, which has been worsening since STEMI despite cardiac rehab. BNP elevated. No history of heart failure, concern for new onset heart failure. Pt is agreeable to hospitalization. Last updated by Gretel Anthony at 12/13/23 23:18 Discharge Plan Disposition Patient Disposition: Transfer-Acute Inpatient Care Condition: Serious Discharge Details Clinical Impression: Heart failure, Stage 4 chronic kidney disease, Essential hypertension, Obstructive sleep apnea syndrome, Chest pain Primary Care Provider: Maximus Esposito ED Provider: Antonina Alicea Home Meds and New Rx's Prescriptions: No Action allopurinol 100 mg tablet 100 mg PO DAILY albuterol sulfate [ProAir HFA] 90 mcg/actuation HFA aerosol inhaler 2 puff Inhalation Q6H PRN Qty: 1 0RF Rx Instructions: with spacer (DME) blood sugar diagnostic Strip 1 ea Miscellaneous BID Qty: 100 4RF Rx Instructions: One daily cholecalciferol (vitamin D3) 50 mcg (2,000 unit) capsule 2,000 unit PO DAILY Qty: 90 4RF Rx Instructions: Per nephrology Repatha SureClick 140 mg/mL pen injector 140 mg subcut Q2W Qty: 2 5RF Rx Instructions: Prescribed by [facility] Cardiology Dr. Jaquan Painter on 04/22/23. -hb (DME) blood-glucose meter [OneTouch UltraMini] 1 EACH kit 1 ea Miscellaneous BID Qty: 1 0RF (DME) lancets [OneTouch Delica Lancets] 1 EACH misc 1 ea Miscellaneous BID Qty: 100 5RF metoprolol succinate 50 mg tablet extended release 24 hr See Rx Instructions .ROUTE .COMPLEX Qty: 60 4RF Dose Instruction: TAKE 1 TABLET BY MOUTH TWICE DAILY Rx Instructions: TAKE 1 TABLET BY MOUTH TWICE DAILY nitroglycerin 0.4 mg tablet, sublingual 0.4 mg sublingual Q5M PRN Rx Instructions: 04/23/[address] Painter at [facility] Cardiology. -hb do not exceed 3 doses per episode aspirin [Adult Low Dose Aspirin] 81 mg tablet,delayed release (DR/EC) 81 mg PO DAILY Qty: 90 3RF Rx Instructions: 04/23/[address] Painter at [facility] Cardiology. -hb ezetimibe 10 mg tablet 10 mg PO DAILY Qty: 90 3RF Rx Instructions: 04/23/[address] Painter at [facility] Cardiology. -hb prasugrel 10 mg tablet 10 mg PO DAILY Qty: 90 3RF Rx Instructions: 04/23/[address] Painter at [facility] Cardiology. -hb losartan 100 mg tablet 100 mg PO DAILY Qty: 90 0RF Rx Instructions: dose increase amlodipine 10 mg tablet 10 mg PO DAILY Qty: 90 4RF POCUS Exam (ED) Limited Cardiac Exam DATE OF EXAM: 12/14/23 TIME OF EXAM: 02:30 PROVIDER THAT PERFORMED THE STUDY: Antonina Alicea REASON FOR EXAM: Chest pain VISUALIZED STRUCTURES: Four Chambers VIEW OBTAINED: Apical 4-Chamber, Parasternal long-axis and Subxiphoid PERTINENT FINDINGS/IMPRESSION: No pericardial effusion Exam complete
--- NOTE | 2023-12-13 23:59 | DI.VRAD_ITS ---
PROCEDURE INFORMATION: Exam: CT Chest Without Contrast; Diagnostic Exam date and time: 12/13/2023 10:28 PM Age: 58 years old Clinical indication: Other: Chest pain radiating to back, h/o mi TECHNIQUE: Imaging protocol: Diagnostic computed tomography of the chest without contrast. COMPARISON: CT CHEST LUNG CANCER SCREEN 05/22/2022 3:25 PM FINDINGS: Thyroid: The visualized thyroid gland is unremarkable. Lungs: No acute tracheobronchial abnormalities. Patchy mild alveolar opacities in the right upper lobe posterior segment and right lower lobe superior segment which could represent subsegmental atelectasis or mild edema or pneumonia. Mild interlobular septal thickening bilaterally suspicious for an element of interstitial pulmonary edema. No pulmonary mass lesions are identified. Pleural spaces: No pleural effusions. No pneumothorax. Heart: Heart size normal. Coronary arteries: Moderate calcific atherosclerosis in the circumflex distribution and mild calcific plaque in the LAD and RCA distributions. Esophagus: The esophagus is largely contracted without gross abnormality. Lymph nodes: No supraclavicular or axillary adenopathy. No mediastinal or hilar adenopathy. Vasculature: Mild aortic ectasia/tortuosity and calcific atherosclerosis. No mediastinal hematoma. The pulmonary arteries demonstrate no gross abnormality. Bones/joints: No acute osseous abnormalities are identified. Old healed left posterior 10th rib fracture. Mild thoracic spondylosis. Soft tissues: No acute soft tissue abnormality. IMPRESSION: 1. Patchy mild alveolar opacities in the right upper lobe posterior segment and right lower lobe superior segment which could represent mild pulmonary infiltrates versus edema or subsegmental atelectasis. 2. Bilateral interlobular septal thickening suspicious for an element of interstitial pulmonary edema. 3. Moderate coronary artery calcification, greatest in the circumflex distribution. 4. Additional nonemergent findings detailed above. PROCEDURE INFORMATION: Exam: CT Abdomen And Pelvis Without Contrast Exam date and time: 12/13/2023 10:28 PM Age: 58 years old Clinical indication: Other: Chest pain radiating to back, h/o mi TECHNIQUE: Imaging protocol: Computed tomography of the abdomen and pelvis without contrast. COMPARISON: CT CHEST LUNG CANCER SCREEN 05/22/2022 3:25 PM FINDINGS: Esophagus: The visualized distal esophagus is largely contracted without gross abnormality. Liver: Slight liver contour irregularity in the right lobe, question mild changes of cirrhosis. No mass lesions. No intrahepatic biliary ductal dilatation. Gallbladder and biliary ducts: Normal. No calcified stones. No ductal dilation. Pancreas: Normal. No inflammatory changes or ductal dilation. Spleen: Normal. No splenomegaly. Adrenal glands: Normal. No adrenal mass. Kidneys and ureters: Mild bilateral chronic symmetrical perinephric stranding, nonspecific. This is unchanged and may relate to chronic perirenal scarring. No hydronephrosis or hydroureter. No urinary tract stones are identified. Simple right renal cortical cyst. 7 mm hemorrhagic or proteinaceous cyst in the left anterior renal cortex measuring 73 Hounsfield units. These do not require further evaluation. Stomach and bowel: The stomach is unremarkable. The small bowel is nondilated with no gross abnormality. Moderate stool in the mid to proximal colon, possible constipation. Appendix: Prior appendectomy. Intraperitoneal space: No peritoneal free fluid or air. Vasculature: No acute process. No abdominal aortic aneurysm. Moderate calcific atherosclerosis. Lymph nodes: No adenopathy. Urinary bladder: The urinary bladder is moderately distended but otherwise unremarkable. Reproductive: Unremarkable as visualized. Bones/joints: No acute osseous abnormalities. Mild lumbar spondylosis. Moderate-severe disc degenerative changes L5-S1. Soft tissues: No acute soft tissue abnormalities. IMPRESSION: 1. No acute process is evident. 2. Slight liver contour irregularity in the right lobe suspicious for mild changes of cirrhosis. No significant evidence of portal hypertension or portosystemic shunting. 3. Moderate stool in the mid to proximal colon, possible constipation. 4. Additional nonemergent findings detailed above. Dictated and Authenticated by: Chino Carney MD. Ordering:CARY Majano MD
[2023-12-14] VITALS (50 sets, daily range): BP systolic 126–168; BP diastolic 46–84; PULSE 46–78; RESP 13–24; O2SAT 92–99
[2023-12-14 00:24] LABS: Troponin I 40 ng/L (<or=76)
[2023-12-14] MEDS: Aspirin 81 MG CHEW 324 MG CH (01:22)
[2023-12-14] MEDS: Furosemide 40 MG/4 ML VIAL IVP (03:07)
[2023-12-14] MEDS: hydrALAZINE 25 MG TAB PO (03:25)
[2023-12-14] MEDS: Isosorbide Mononitrate 30 MG TABCR 20 MG PO (03:25)
--- NOTE | 2023-12-14 05:15 | RT.EKG_ITS ---
APPROVED REPORT Exam: Resting ECG Reason for Exam: chest pain, repeat Patient Location: E HR:55 bpm ECG Measurements Heart Rate 55 AXIS SD 198 P 42 QRSd 102 QRS 20 QT 509 T 87 QTc 489 Conclusion Sinus bradycardia...rate< 60 Nonspecific T abnormalities, lateral leads...T <-0.10mV, I aVL V5 V6 no ST segment or T wave abnormalities to suggest occlusive [place]
[2023-12-14] MEDS: Acetaminophen 500 MG TAB 1000 MG PO (07:20)
== END 2023-12-14 07:36 | disposition short-term general hospital (02) ==
PROVIDERS: Nurse Practitioner Family; Emergency Provider Student in an Organized Health Care Education/Training Program; PCP Nurse Practitioner Family
DX: E11.22 Type 2 diabetes mellitus with diabetic chronic kidney disease (principal); I12.9 Hypertensive chronic kidney disease with stage 1 through stage 4 chronic kidney disease, or unspecified chronic kidney disease; N18.4 Chronic kidney disease, stage 4 (severe); I50.9 Heart failure, unspecified; I25.2 Old myocardial infarction; G47.33 Obstructive sleep apnea (adult) (pediatric); E78.5 Hyperlipidemia, unspecified; Z79.82 Long term (current) use of aspirin; Z95.5 Presence of coronary angioplasty implant and graft; Z87.891 Personal history of nicotine dependence
CPT/HCPCS: 00123; 36415; 71250; 80053; 87637; 93005; 93308; 94640; 96374; 99285; 74176; 83735; 83880; 84484; 85025; 93010; J1940; J7620

== ENCOUNTER 2023-12-18 12:13 | Outpatient (CLI) | payer OTHER, SELFPAY ==
[2023-12-18 12:13] LABS: Anion Gap 15.2 mmol/L (3-11); BUN 66 mg/dL (7-18); CO2 19.8 mmol/L (21.0-32.0); Calcium 9.1 mg/dL (8.5-10.1); Chloride 110 mmol/L (98-107); Estimated GFR 14.65 (mL/min/1.73m2); Glucose 107 mg/dL (74-106); Potassium 4.9 mmol/L (3.5-5.1); Sodium 145 mmol/L (136-145)
[2023-12-18 13:27] LABS: CREATININE 4.4 mg/dL (0.70-1.30)
== END 2023-12-18 12:14 | disposition home or self-care (01) ==
PROVIDERS: PCP Nurse Practitioner Family
DX: I10 Essential (primary) hypertension (principal)
CPT/HCPCS: 36415; 80048

== ENCOUNTER 2023-12-20 11:00 | Outpatient (CLI) | payer OTHER, SELFPAY ==
[2023-12-20 13:14] LABS: Anion Gap 12.6 mmol/L (3-11); BUN 58 mg/dL (7-18); CO2 21.4 mmol/L (21.0-32.0); Calcium 8.9 mg/dL (8.5-10.1); Chloride 112 mmol/L (98-107); Estimated GFR 16.93 (mL/min/1.73m2); Glucose 108 mg/dL (74-106); NT-proBNP 807 pg/mL (<300); Potassium 4.3 mmol/L (3.5-5.1); Sodium 146 mmol/L (136-145)
[2023-12-20 13:20] LABS: CREATININE 3.9 mg/dL (0.70-1.30)
== END 2023-12-20 11:01 | disposition home or self-care (01) ==
LOC: LOS 11:01
PROVIDERS: PCP Nurse Practitioner Family; Referring Provider Nurse Practitioner Family; Visit Provider Nurse Practitioner Family
DX: I50.9 Heart failure, unspecified (principal); N18.4 Chronic kidney disease, stage 4 (severe); I25.10 Atherosclerotic heart disease of native coronary artery without angina pectoris; I10 Essential (primary) hypertension
CPT/HCPCS: 36415; 80048; 83880

== ENCOUNTER 2024-01-03 14:00 | Outpatient (CLI) | payer OTHER, SELFPAY ==
--- NOTE | 2024-01-03 14:00 | RT.EKG_ITS ---
APPROVED REPORT Exam: Resting ECG Reason for Exam: NPW baseline needed Patient Location: O HR:55 bpm ECG Measurements Heart Rate 55 AXIS SC 201 P 71 QRSd 115 QRS -11 QT 421 T 71 QTc 403 Conclusion Sinus rhythm...normal P axis, V-rate Minor nondiagnostic ST abnormalities
== END 2024-01-03 14:01 | disposition home or self-care (01) ==
LOC: DI.CARD 14:00
PROVIDERS: PCP Nurse Practitioner Family; Visit Provider Internal Medicine Cardiovascular Disease
DX: I25.10 Atherosclerotic heart disease of native coronary artery without angina pectoris (principal)
CPT/HCPCS: 93010

== ENCOUNTER 2024-01-15 15:46 | Outpatient (CLI) | payer OTHER, SELFPAY ==
[2024-01-15 16:38] LABS: Anion Gap 12.8 mmol/L (3-11); BUN 39 mg/dL (7-18); CO2 23.2 mmol/L (21.0-32.0); Calcium 9.1 mg/dL (8.5-10.1); Chloride 111 mmol/L (98-107); Estimated GFR 17.47 (mL/min/1.73m2); Glucose 106 mg/dL (74-106); Potassium 3.7 mmol/L (3.5-5.1); Sodium 147 mmol/L (136-145)
[2024-01-15 17:55] LABS: CREATININE 3.8 mg/dL (0.70-1.30)
== END 2024-01-15 15:47 | disposition home or self-care (01) ==
LOC: LBO 15:47
PROVIDERS: PCP Nurse Practitioner Family; Visit Provider Nurse Practitioner Family
DX: I25.5 Ischemic cardiomyopathy (principal)
CPT/HCPCS: 36415; 80048

== ENCOUNTER 2024-01-27 16:10 | Outpatient (CLI) | payer OTHER, SELFPAY ==
[2024-01-27 17:18] LABS: Anion Gap 12.8 mmol/L (3-11); BUN 44 mg/dL (7-18); CO2 24.2 mmol/L (21.0-32.0); Calcium 8.7 mg/dL (8.5-10.1); Chloride 110 mmol/L (98-107); Estimated GFR 16.43 (mL/min/1.73m2); Glucose 92 mg/dL (74-106); Potassium 3.7 mmol/L (3.5-5.1); Sodium 147 mmol/L (136-145)
== END 2024-01-27 16:11 | disposition home or self-care (01) ==
LOC: LBO 16:11
PROVIDERS: PCP Nurse Practitioner Family; Visit Provider Nurse Practitioner Family
DX: I50.20 Unspecified systolic (congestive) heart failure (principal)
CPT/HCPCS: 36415; 80048

== ENCOUNTER 2024-03-09 11:59 | Inpatient (IN) | payer OTHER, SELFPAY ==
[2024-03-09] VITALS (41 sets, daily range): BP systolic 103–151; BP diastolic 64–98; PULSE 63–82; RESP 10–24; TEMP 36.4–37.5; O2SAT 90–96
--- NOTE | 2024-03-09 12:15 | W.ED.GENAD ---
Discharge Plan Disposition Patient Disposition: Admit to [facility] Discharge Details Clinical Impression: Diabetes mellitus with hyperglycemia, Acute hyponatremia, Acute kidney injury Admit Date/Time: 03/09/24 15:50 Admit Provider: Burke Bullock Attending Provider: Burke Bullock Primary Care Provider: Maximus Esposito ED Provider: Chino Napoles Discharge Data Discharge Date/Time-TO BE ENTERED AT DEPARTURE: 03/09/24 16:40 HPI General Date/Time Provider Initiated Documentation: 03/09/24 12:05. HPI Narrative: MDM This is an overall well-appearing normothermic and not tachycardic 58-year-old male with bilateral lower extremity subjective weakness and unintentional weight loss concerning for acute electrolyte abnormality for which patient will undergo lab assessment. No pain out of proportion to suggest necrotizing soft tissue infection. No significant lower extremity edema to suggest acute heart failure. Given shortness of breath we will obtain D-dimer to assess for PE. Patient has no signs of erythema to suggest cellulitis. No fluctuance to suggest abscess. Bilateral feet warm well-perfused so my suspicion for critical limb ischemia is low so I do not feel that the patient requires any CT angiogram was runoffs though if his electrolytes are reassuring we will consider angiogram. No chest pain to suggest ACS however given risk factors we will obtain troponins. Patient has no clinical signs of DVT so will defer duplex unless he has a PE. Anticipate patient will require physical therapy assessment. 03/10 Late charting due to patient care. Patient was found markedly hyponatremic with an HUSAM. He was markedly hyperglycemic but not in DKA based on his normal bicarb lack of anion gap and normal venous pH. As a touch with Dr. Bullock who graciously agreed to accept patient for hospitalization. I ordered urine studies on the patient. Prior to ordering 5 units of IV insulin I treated him with potassium to prevent hypokalemia. Chronic conditions affecting the care of the patient: Diabetes History obtained from an outside historian: N/A External record review: [facility] [place] Diagnostic interpretations performed by me: Per my independent interpretation EKG shows: Sinus rhythm at a rate of 64. Left axis deviation no signs of LVH. Interventricular conduction delay. IA and QTc within normal limits. T wave inversion in aVL. Compared to prior dated last year T wave version in aVL is new. No acute injury pattern. ]Medications: 150 cc bolus hypertonic saline 3% Social determinants of health affecting disposition: N/A Management discussed with: Hospitalist Treatment/interventions considered: N/A Response to therapies provided: N/A HPI The patient presents for evaluation of leg cramps, dry mouth, and shortness of breath. He reports experiencing severe leg cramps, with approximately 30 episodes lasting a few minutes each. He does not report any leg swelling but notes difficulty in walking due to leg weakness, a new symptom since Saturday. He was able to ambulate without issue on Saturday and Saturday. He experiences pain upon movement of his legs. He has no known history of thrombosis in his legs or lungs. He is currently on furosemide, which has resulted in increased urination, necessitating bathroom visits every hour to an hour and a half. He has been experiencing persistent dry mouth, necessitating frequent water intake throughout the night. This symptom was particularly severe over the past weekend, prompting him to consume water and gómez nafisa at 2:00 AM due to insufficient fluid intake. The following night, he experienced similar symptoms. He has been experiencing respiratory distress since his myocardial infarction, with occasional exacerbations. He does not report any current chest pain. He does not use a recliner for sleep and reports no unintentional weight gain. In fact, he has lost approximately 9 to 10 pounds over the past week. He has been under the care of a it integration architect due to declining renal function. Exam General: Well-appearing in no acute distress speaking in complete sentences. Head: Normocephalic, atraumatic. Eye: Extraocular eye movements intact. No conjunctival injection. No scleral icterus. Ear, nose, mouth, throat: Grossly normal inspection. Normal voice, handling secretions normally. Neck: Trachea midline. Cardiovascular: Well-perfused distal extremities. Regular rate and rhythm Respiratory: Nonlabored respiration. Clear lungs bilaterally Gastrointestinal: Nondistended abdomen. Musculoskeletal: No significant lower extremity pitting edema. Moving all 4 extremities spontaneously. Skin: Normal for age and race, grossly normal temperature and turgor. No acute rash. Neurologic: Alert and appropriate, no apparent acute deficits. Psychiatric: Mood and manner are appropriate. Grooming and personal hygiene are appropriate. Related Data Home Medications ?Medication ?Instructions ?Recorded ?Confirmed blood-glucose meter ([employer] ##1 06/04/17 03/09/24 UltraMini kit) lancets 33 gauge (Neurovance #100 ea 06/04/17 03/09/24 Lancets) blood sugar diagnostic #100 strips 08/27/19 03/09/24 nitroglycerin 0.4 mg sublingual 0.4 mg sublingual Q5M PRN 04/23/23 03/09/24 tablet albuterol sulfate 90 mcg/actuation 2 puff inhalation Q6H PRN ##1 04/30/23 03/09/24 aerosol inhaler (ProAir HFA) ezetimibe 10 mg tablet 10 mg PO DAILY #90 tabs 10/01/23 03/09/24 amlodipine 10 mg tablet 10 mg PO DAILY #90 tab-caps 10/04/23 03/09/24 evolocumab 140 mg/mL subcutaneous 140 mg subcut Q2W #2 mL 10/15/23 03/09/24 pen injector (Juany Montejo) carvedilol 6.25 mg tablet 6.25 mg PO BID 12/20/23 03/09/24 furosemide 20 mg tablet 20 mg PO DAILY PRN edema #90 tabs 01/17/24 03/09/24 furosemide 40 mg tablet 40 mg PO DAILY #90 tabs 01/17/24 03/09/24 allopurinol 100 mg tablet 100 mg PO BID #180 tabs 01/31/24 03/09/24 prasugrel 10 mg tablet 10 mg PO DAILY #90 tabs 02/18/24 03/09/24 aspirin 81 mg chewable tablet 1 tab PO DAILY 03/09/24 03/09/24 losartan 100 mg tablet 100 mg PO DAILY 03/09/24 03/09/24 Previous Rx's ?Medication ?Instructions ?Recorded blood-glucose meter ([employer] ##1 06/04/17 UltraMini kit) lancets 33 gauge ([employer]uch Delica #100 ea 06/04/17 Lancets) blood sugar diagnostic #100 strips 08/27/19 albuterol sulfate 90 mcg/actuation 2 puff inhalation Q6H PRN ##1 04/30/23 aerosol inhaler (ProAir HFA) ezetimibe 10 mg tablet 10 mg PO DAILY #90 tabs 10/01/23 amlodipine 10 mg tablet 10 mg PO DAILY #90 tab-caps 10/04/23 evolocumab 140 mg/mL subcutaneous 140 mg subcut Q2W #2 mL 10/15/23 pen injector (Juany Montejo) furosemide 20 mg tablet 20 mg PO DAILY PRN edema #90 tabs 01/17/24 furosemide 40 mg tablet 40 mg PO DAILY #90 tabs 01/17/24 allopurinol 100 mg tablet 100 mg PO BID #180 tabs 01/31/24 prasugrel 10 mg tablet 10 mg PO DAILY #90 tabs 02/18/24 Allergies Allergy/AdvReac Type Severity Reaction Status Date / Time atorvastatin AdvReac Mild Skin Rash Verified 03/09/24 12:11 rosuvastatin AdvReac Mild Skin Rash Verified 03/09/24 12:11 General Stated Complaint: GenMedical JASON: 3 Course Vital Signs Vital signs: Vital Signs Temperature 36.4 C 03/09/24 12:06 Pulse 75 03/09/24 12:06 Respiratory Rate 10 L 03/09/24 12:06 Blood Pressure 110/77 03/09/24 12:06 Pulse Oximetry 94 03/09/24 12:06 Temperature 36.4 C 03/09/24 12:06 Temperature Source Oral 03/09/24 12:06 Pulse 75 03/09/24 12:06 Respiratory Rate 10 L 03/09/24 12:06 Blood Pressure 110/77 03/09/24 12:06 Blood Pressure Position Sitting 03/09/24 12:06 Pulse Oximetry 94 03/09/24 12:06 Oxygen Delivery Method Room Air 03/09/24 12:06 Oxygen Flow Rate 0 03/09/24 12:06 Pain Level 4 03/09/24 12:06 Medical Decision Making Quality:SDOH Health Related Social Needs: No Data to Display Critical Care Time Critical Care Time Critical Care Time: Yes Total Critical Care Time: 45 Attestation: Bedside assessment and management of electrolytes abnormalities PFSH All Active Problems (Updated 03/09/24 @ 14:59 by Chino Napoles MD) Acute kidney injury (Acute) Acute hyponatremia (Acute) Diabetes mellitus with hyperglycemia (Acute) ASCVD (arteriosclerotic cardiovascular disease) (Acute) Flash pulmonary edema (Acute 11/2023) TTE w/ LVEF 41% lateral akinesis, similar to 09/2023. Neg MPI 12/16/23. Encourage low salt diet STEMI (ST elevation myocardial infarction) (Acute) Chest pain at rest (Acute) Right carotid bruit (Acute) Stage 4 chronic kidney disease (Acute) Hyperlipidemia (Acute) Type 2 diabetes mellitus without complications (Chronic) Obstructive sleep apnea syndrome (Chronic) Essential hypertension (Chronic 04/28/15) Medical History Hypertensive emergency (~11/2023) Chest pain Gout (03/25/12) Smoker (05/19/15) 2020- 39 PPD hx Renal insufficiency (04/01/15) [facility] [place] no [place] Cannot afford their visits Nicotine dependence Lichen sclerosus of penis (04/15/15) Surgical History Appendectomy (~11/2009) Family History Mother No problems noted. 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 Pets and animals: No Sexually active: Yes Do you think of yourself as: straight/heterosexual Current gender identity: male What is your relationship status?: How often do you talk on the phone with friends or family?: once per week How often do you get together with friends or relatives?: once per week How often do you attend jehovah's witness or yazdanism services?: 1-3 times per year Do you belong to any clubs or organized social groups?: no Panel score (0-1 are the most socially isolated patients): 0 What type of physical activity do you participate in: none Lorena/Christian: Gnosticism Seatbelt use: never Helmet use: Yes Helmet use: sometimes Drive intox or ride w/intox special events driver: No Do you feel safe at home: Yes Do you feel safe in your relationship?: Yes
--- NOTE | 2024-03-09 12:30 | RT.EKG_ITS ---
APPROVED REPORT Exam: Resting ECG Reason for Exam: Weakness Patient Location: E HR:64 bpm ECG Measurements Heart Rate 64 AXIS NH 198 P 76 QRSd 114 QRS -48 QT 443 T 82 QTc 457 Conclusion Sinus rhythm...normal P axis, V-rate 60- 99 Ventricular premature complex...V complex w/ short R-R interval Inferior infarct, old...Q >35mS, II III aVF No STEMI
[2024-03-09 13:16] LABS: Abs Immature Grans 0.07 10^3/uL (0.0-0.06); Absolute Basophil Count 0.09 10^3/uL (0.0-0.2); Absolute Eosinophil Count 0.12 10^3/uL (0.0-0.7); Absolute Lymphocyte Count 1.15 10^3/uL (1.2-3.4); Absolute Monocyte Count 0.58 10^3/uL (0.1-0.8); Absolute Neutrophil Count 10.27 10^3/uL (1.2-6.7); Basophils % 0.7 %; HCT 42.4 % (40.0-50.0); HGB 14.7 g/dL (13.5-17.5); Immature Grans % 0.6 %; Lymphocytes % 9.4 %; MCH 30.2 pg (27.0-33.0); MCHC 34.7 % (32.0-36.0); MCV 87 fL (80-95); Monocytes % 4.7 %; Neutrophils % 83.6 %; Platelet Count 203 10^3/uL (130-400); RBC 4.87 10^6/uL (4.36-5.78); RDW 11.6 % (11.8-14.1); RDW-SD 36.7 fL; WBC 12.28 10^3/uL (4.4-10.8)
[2024-03-09 13:40] LABS: ALT 14 U/L (16-63); AST 6 U/L (15-37); Albumin 3.7 g/dL (3.4-5.0); Alkaline Phosphatase 131 U/L (46-116); BUN 51 mg/dL (7-18); Calcium 9.1 mg/dL (8.5-10.1); Chloride 84 mmol/L (98-107); Creatine Kinase 64 U/L (39-308); Estimated GFR 14.65 (mL/min/1.73m2); Magnesium 2.4 mg/dL (1.8-2.4); NT-proBNP 1386 pg/mL (<300); Potassium 3.6 mmol/L (3.5-5.1); Total Protein 8.4 g/dL (6.4-8.2); Troponin I 38 ng/L (<or=76)
[2024-03-09 13:43] LABS: D-Dimer 388 ng/mlFEU (<500)
--- NOTE | 2024-03-09 13:45 | DI.RAD_ITS ---
Exam(s) XR PORTABLE CHEST AP EXAM: XR PORTABLE CHEST AP CLINICAL HISTORY: Shortness of breath TECHNIQUE: 2D digital imaging was performed. COMPARISON: CR,XR XR CHEST 2V PA LATERAL from 04/28/[address] CHEST/ABD/PEL WO from 12/13/2023 FINDINGS: LUNGS: Clear. No pleural abnormality seen. HEART: Normal size. AORTA: Normal diameter. BONES: Unremarkable for age. Soft tissues: Unremarkable. IMPRESSION: No acute findings. DATA REPOSITORY: RADIATION DOSE DELIVERED:
[2024-03-09 13:54] LABS: Glucose 1103 mg/dL (74-106)
[2024-03-09 13:55] LABS: CREATININE 4.4 mg/dL (0.70-1.30); Sodium 121 mmol/L (136-145)
[2024-03-09 14:19] LABS: BE (Venous) 1 mmol/L (-2-3); HCO3 (Venous) 27 mmol/L (23-28); O2 Sat (Venous) 72 %; TCO2 (Venous) 24 mmol/L (24-29); pCO2 (Venous) 50 mmHg (41-51); pH (Venous) 7.34 (7.31-7.41); pO2 (Venous) 35 mmHg
[2024-03-09 14:38] LABS: Anion Gap 12.2 mmol/L (3-11); BUN 53 mg/dL (7-18); CO2 28.8 mmol/L (21.0-32.0); Calcium 9.4 mg/dL (8.5-10.1); Chloride 84 mmol/L (98-107); Estimated GFR 14.26 (mL/min/1.73m2); Potassium 3.7 mmol/L (3.5-5.1); Sodium 125 mmol/L (136-145)
[2024-03-09 14:39] LABS: Bilirubin Negative (Negative); Blood Trace-lysed (Negative); Clarity Clear (Clear); Glucose 500 mg/dL (Negative); Ketones Negative (Negative); Leukocyte Esterase Negative (Negative); Nitrite Negative (Negative); Specific Gravity <= 1.005 (1.005-1.025); Urobilinogen 0.2 mg/dL (Up to 0.2); pH 5.5 (5-8)
[2024-03-09 14:45] LABS: Bacteria Negative HPF (Negative); C & S Indicated? No; Casts 0-2 Hyaline LPF (Negative); Crystals Negative HPF (Negative); Epithelial Cells Rare HPF (Negative); Mucus Negative (Negative); RBC 0-2 HPF (0-2); WBC 0-2 HPF (0-5)
[2024-03-09] MEDS: POTASSIUM CHLORIDE 10 MEQ/100 ML BAG 100 MEQ IV_INF (14:47)
[2024-03-09] MEDS: Ondansetron 4 MG/2 ML VIAL IVP ×2 (14:47→18:00)
[2024-03-09] MEDS: Potassium Bicarbonate/Cit AC 25 MEQ TABLET.EFF 50 MEQ PO (14:47)
[2024-03-09] MEDS: SODIUM CHLORIDE 3% 150 ML 99 ML IV (14:51)
[2024-03-09 14:54] LABS: CREATININE 4.5 mg/dL (0.70-1.30); Glucose 1404 mg/dL (74-106)
[2024-03-09 14:59] LABS: Troponin I 31 ng/L (<or=76)
[2024-03-09 15:08] LABS: Creatinine,Urine 46.44 mg/dL; Sodium, Urine 11 mmol/L
[2024-03-09 15:09] LABS: COMMENT (LAB VIEW ONLY) 46.58 mg/dL; PROTEIN 32.5 mg/dL; Prot/Crea Ur Ratio 0.69
[2024-03-09 15:24] LABS: Hemoglobin A1C 11.2 % (<5.7)
[2024-03-09] MEDS: Insulin REGULAR-Human 100 UNITS/ML UNIT IV (16:09)
--- NOTE | 2024-03-09 16:10 | HPE_ITS ---
Date of service: 03/09/24 Time of Service: 16:10 Assessment and Plan Assessment and plan (1) Essential hypertension: Status: Chronic Assessment and plan: Patient is currently on amlodipine 10 mg carvedilol 6.25 mg twice daily Lasix 20 mg daily which has been up to 80 mg daily actually losartan 100 mg daily. Current blood pressure is 151/94. I will hold his ARB secondary to worsening kidney function at this time. (2) Hyperlipidemia: Status: Acute Assessment and plan: Patient is currently on ezetimibe 10 mg daily as well as Repatha 140 mg biweekly. (3) ASCVD (arteriosclerotic cardiovascular disease): Status: Acute Assessment and plan: Continue with his prasugrel, bp meds, antilipids (4) Type 2 diabetes mellitus without complications: Status: Chronic Assessment and plan: Patient does have a somewhat interesting presentation and that he is not appears to be acting like someone who has been diagnosed with type 1 diabetes with a fairly robust increase in his blood glucose as well as worsening kidney function as well as polyuria and polydipsia. I did put him in the ICU for ICU drip of insulin as well as long-acting insulin. Will check his electrolytes essentially every 2-4 hours to monitor for improvements of his sodium as well as his glucose levels (5) Stage 4 chronic kidney disease: Status: Acute Assessment and plan: Holding losartan (6) Obstructive sleep apnea syndrome: Status: Chronic Assessment and plan: Will discuss with RT in the a.m. History of Present Illness History of Present Illness Chief Complaint: weakness Narrative: This is a 58-year-old gentleman who presented to the ED secondary to weakness. Patient states that over the last week he has been progressively getting weaker and having muscle cramps. Patient states that recently his Lasix had been changed from 40 to 80 mg daily. Workup in the ED consisted of laboratory work, radiographs radiographs, and an EKG. Chest x-ray was read as normal patient's lab values were abnormal and that is BUN and creatinine were 53 and 4.5 his glucose was 1404 and his sodium was 125. When corrected for glucose note his sodium was actually 146. Urinalysis did show glucosuria as well as hematuria. Patient states that over the last few days has had significant polyuria as well as polydipsia. Patient states that h he was diagnosed with diabetes approximately 10 years ago and has been treated with oral medications only. While in the ED, I added an A1c which indicated a value of approximately 11.5. I will admit the patient to ICU for insulin drip as well as monitoring his labs. Review of Systems All systems reviewed & are unremarkable except as noted in HPI and below PFSH All Active Problems (Updated 03/09/24 @ 14:59 by Chino Napoles MD) Acute kidney injury (Acute) Acute hyponatremia (Acute) Diabetes mellitus with hyperglycemia (Acute) ASCVD (arteriosclerotic cardiovascular disease) (Acute) Flash pulmonary edema (Acute 11/2023) TTE w/ LVEF 41% lateral akinesis, similar to 09/2023. Neg MPI 12/16/23. Encourage low salt diet STEMI (ST elevation myocardial infarction) (Acute) Chest pain at rest (Acute) Right carotid bruit (Acute) Stage 4 chronic kidney disease (Acute) Hyperlipidemia (Acute) Type 2 diabetes mellitus without complications (Chronic) Obstructive sleep apnea syndrome (Chronic) Essential hypertension (Chronic 04/28/15) Medical History Hypertensive emergency (~11/2023) Chest pain Gout (03/25/12) Smoker (05/19/15) 2020- 40 PPD hx Renal insufficiency (04/01/15[place] [facility] [place] afford their visits Nicotine dependence Lichen sclerosus of penis (04/15/15) Surgical History Appendectomy (~11/2009) Family History Mother No problems noted. 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 Pets and animals: No Sexually active: Yes Do you think of yourself as: straight/heterosexual Current gender identity: male What is your relationship status?: How often do you talk on the phone with friends or family?: once per week How often do you get together with friends or relatives?: once per week How often do you attend yarsani or samaritan services?: 1-3 times per year Do you belong to any clubs or organized social groups?: no Panel score (0-1 are the most socially isolated patients): 0 What type of physical activity do you participate in: none [place]/Anabaptism: Spiritism Seatbelt use: never Helmet use: Yes Helmet use: sometimes Drive intox or ride w/intox 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 ##1 06/04/17 03/09/24 Rx UltraMini kit) lancets 33 gauge (OneTouch Delica #100 ea 06/04/17 03/09/24 Rx Lancets) blood sugar diagnostic #100 strips 08/27/19 03/09/24 Rx nitroglycerin 0.4 mg sublingual 0.4 mg sublingual Q5M PRN 04/23/23 03/09/24 History tablet albuterol sulfate 90 mcg/actuation 2 puff inhalation Q6H PRN ##1 04/30/23 03/09/24 Rx aerosol inhaler (ProAir HFA) aspirin 81 mg tablet,delayed 81 mg PO DAILY #90 tabs 10/01/23 03/09/24 Rx release (Adult Low Dose Aspirin) ezetimibe 10 mg tablet 10 mg PO DAILY #90 tabs 10/01/23 03/09/24 Rx amlodipine 10 mg tablet 10 mg PO DAILY #90 tab-caps 10/04/23 03/09/24 Rx evolocumab 140 mg/mL subcutaneous 140 mg subcut Q2W #2 mL 10/15/23 03/09/24 Rx pen injector (Juany Montejo) carvedilol 6.25 mg tablet 6.25 mg PO BID 12/20/23 03/09/24 History furosemide 20 mg tablet 20 mg PO DAILY PRN edema #90 tabs 01/17/24 03/09/24 Rx furosemide 40 mg tablet 40 mg PO DAILY #90 tabs 01/17/24 03/09/24 Rx allopurinol 100 mg tablet 100 mg PO BID #180 tabs 01/31/24 03/09/24 Rx prasugrel 10 mg tablet 10 mg PO DAILY #90 tabs 02/18/24 03/09/24 Rx losartan 100 mg tablet 100 mg PO DAILY 03/09/24 03/09/24 History Exam Narrative Exam Narrative: Head eyes ears nose and throat: Normocephalic atraumatic mucous membranes dry extraocular motions are intact pupils are equal round and reactive to light Neck: No lymphadenopathy no JVD no thyroid megaly Cardiovascular: Regular rate and rhythm no murmurs gallops Pulm: Clear to auscultation bilaterally with good air exchange no accessory muscle use noted speaking in complete sentences Abdomen: Soft nontender nondistended bowel sounds active x 4 quadrants Extremities: No pitting edema bilaterally in the lower extremities Neurologic: Cranial nerves II through XII are intact as tested reflexes in the upper and lower extremities are normal as tested Psych: Alert and oriented x 3 but somewhat somnolent. Patient is able to give a linear history. General: 58-year-old gentleman who appears his stated age no apparent distress Results Labs 03/09/24 13:05 03/09/24 14:10 Labs: Laboratory Results - last 24 hr 03/09/24 03/09/24 03/09/24 12:36 12:41 13:05 WBC 12.28 H RBC 4.87 Hgb 14.7 Hct 42.4 MCV 87 MCH 30.2 MCHC 34.7 RDW 11.6 L Plt Count 203 MPV 11.0 Immature Gran % 0.6 Neutrophils % 83.6 Lymphocytes % 9.4 Monocytes % 4.7 Eosinophils % 1.0 Basophils % 0.7 Nucleated RBC % 0.0 Absolute Neutrophils 10.27 H Absolute Lymphocytes 1.15 L Absolute Monocytes 0.58 Absolute Eosinophils 0.12 Absolute Basophils 0.09 D-Dimer 388 VBG pH VBG pCO2 VBG pO2 VBG HCO3 VBG Total CO2 VBG O2 Saturation VBG Base Excess Sodium 121 L* Potassium 3.6 Chloride 84 L Carbon Dioxide 27.0 Anion Gap 10.0 BUN 51 H Creatinine 4.4 H* Est GFR (CKD-EPI 2020) 14.65 Glucose 1103 H* Hemoglobin A1c 11.2 H Calcium 9.1 Magnesium Cancelled 2.4 Total Bilirubin 0.70 AST 6 L ALT 14 L Alkaline Phosphatase 131 H Creatine Kinase 64 Troponin I Cancelled 38 NT-Pro-B Natriuret Pep Cancelled 1386 H Total Protein 8.4 H Albumin 3.7 Urine Color Urine Clarity Urine pH Ur Specific [place] Urine Protein Urine Ketones Urine Blood Urine Nitrite Urine Bilirubin Urine Urobilinogen Ur Leukocyte Esterase Urine RBC Urine WBC Ur Epithelial Cells Urine Crystals Urine Bacteria Urine Casts Urine Mucus Ur Culture Indicated? Ur Random Creatinine U Random Total Protein U [place] Prot/Creat Ratio Ur Random Sodium Urine Glucose 03/09/24 03/09/24 14:10 14:10 WBC RBC Hgb Hct MCV MCH MCHC RDW Plt Count MPV Immature Gran % Neutrophils % Lymphocytes % Monocytes % Eosinophils % Basophils % Nucleated RBC % Absolute Neutrophils Absolute Lymphocytes Absolute Monocytes Absolute Eosinophils Absolute Basophils D-Dimer VBG pH 7.34 VBG pCO2 50 VBG pO2 35 VBG HCO3 27 VBG Total CO2 24 VBG O2 Saturation 72 VBG Base Excess 1 Sodium 125 L Potassium 3.7 Chloride 84 L Carbon Dioxide 28.8 Anion Gap 12.2 H BUN 53 H Creatinine 4.5 H* Est GFR (CKD-EPI 2020) 14.26 Glucose 1404 H* Hemoglobin A1c Calcium 9.4 Magnesium Total Bilirubin AST ALT Alkaline Phosphatase Creatine Kinase Troponin I 31 NT-Pro-B Natriuret Pep Total Protein Albumin Urine Color Yellow Urine Clarity Clear Urine pH 5.5 Ur Specific [place] <= 1.005 Urine Protein 30 H Urine Ketones Negative Urine Blood Trace-lysed H Urine Nitrite Negative Urine Bilirubin Negative Urine Urobilinogen 0.2 Ur Leukocyte Esterase Negative Urine RBC 0-2 Urine WBC 0-2 Ur Epithelial Cells Rare Urine Crystals Negative Urine Bacteria Negative Urine Casts 0-2 Hyaline Urine Mucus Negative Ur Culture Indicated? No Ur Random Creatinine 46.44 46.58 U Random Total Protein 32.5 U [place] Prot/Creat Ratio 0.69 Ur Random Sodium 11 Urine Glucose 500 H Last Vital Signs Temp 36.4 C 03/09/24 12:06 Pulse 80 03/09/24 14:45 Resp 10 L 03/09/24 14:45 BP 151/94 H 03/09/24 14:45 Pulse Ox 94 03/09/24 14:45 Time Spent Time spent with Patient: 55-74 minutes Time was spent: preparing to see the patient(eg.review tests), ordering medications,tests, procedures, referring, communicating with other health dialysis patient care technician, indepentently interpreting results, counseling the patient and care coordination
--- NOTE | 2024-03-09 16:31 | W.PCEDHO ---
Registration Status: Primary Language: Preferred Language: ED Information & Data Chief Complaint GenMedical 03/09/24 12:16 Triage Note patient having weakness in 03/09/24 12:06 legs secondary to cramping. States he was in bed for most of the w/e. Is on a water pill. No cp. no n/v/d. No sob, no edema. States kidney function is declining and has lost 9lbs in 1 week . Medical / Surgical History (Last Reviewed 01/03/24 @ 14:05 by Jane Rosario MD) Hypertensive emergency (~11/2023) Gout (03/25/12) Smoker (05/19/15) Renal insufficiency (04/01/15) Nicotine dependence Lichen sclerosus of penis (04/15/15) (Last Reviewed 01/03/24 @ 14:05 by Jane Rosario MD) Appendectomy (~11/2009) Most Recent Vital Signs Temperature 36.4 C 03/09/24 12:06 Temperature Source Oral 03/09/24 12:06 Pulse 80 03/09/24 14:45 Pulse 73 03/09/24 14:45 Respiratory Rate 10 L 03/09/24 14:45 Respiratory Effort Normal, Non-Labored 03/09/24 13:09 Respiratory Depth Normal 03/09/24 13:09 Respiratory Pattern Normal 03/09/24 13:09 Blood Pressure 151/94 H 03/09/24 14:45 Blood Pressure Mean 108 03/09/24 14:45 Blood Pressure Position Sitting 03/09/24 12:06 Pulse Oximetry 94 03/09/24 14:45 Oxygen Delivery Method Room Air 03/09/24 12:06 Oxygen Flow Rate 0 03/09/24 12:06 Pain Level 4 03/09/24 12:06 Allergies atorvastatin Adverse Reaction (Mild, Verified 03/09/24 12:11) Skin Rash rosuvastatin Adverse Reaction (Mild, Verified 03/09/24 12:11) Skin Rash Precautions Isolation Standard precaution 03/09/24 12:09 IV IV Catheter Type [Right Peripheral IV Forearm] IV Catheter Type [Left Forearm Peripheral IV ] IV Catheter Gauge [Right 18 Forearm] IV Catheter Gauge [Left 20 Forearm] Diet Orders Category Date Time Status Diabetes Consistent CHO/Heart Healthy [DIET] Nutrition 03/09/24 Dinner Active Diagnostics 03/09/24 03/09/2425 Range/Units Unknown 20:00 16:14 WBC Pending Pending (4.4-10.8) 10^3/uL RBC Pending Pending (4.36-5.78) 10^6/uL Hgb Pending Pending (13.5-17.5) g/dL Hct Pending Pending (40.0-50.0) % MCV Pending Pending (80-95) fL MCH Pending Pending (27.0-33.0) pg MCHC Pending Pending (32.0-36.0) % RDW Pending Pending (11.8-14.1) % Plt Count Pending Pending (130-400) 10^3/uL MPV Pending Pending (8.0-11.0) fL Immature Gran % Pending % Neutrophils % Pending % Lymphocytes % Pending % Monocytes % Pending % Eosinophils % Pending % Basophils % Pending % Nucleated RBC % (0.0-0.3) % Absolute Neutrophils Pending (1.2-6.7) 10^3/uL Absolute Lymphocytes Pending (1.2-3.4) 10^3/uL Absolute Monocytes Pending (0.1-0.8) 10^3/uL Absolute Eosinophils Pending (0.0-0.7) 10^3/uL Absolute Basophils Pending (0.0-0.2) 10^3/uL D-Dimer (<500) ng/mlFEU VBG pH (7.31-7.41) VBG pCO2 (41-51) mmHg VBG pO2 mmHg VBG HCO3 (23-28) mmol/L VBG Total CO2 (24-29) mmol/L VBG O2 Saturation % VBG Base Excess (-2-3) mmol/L Sodium (136-145) mmol/L Potassium (3.5-5.1) mmol/L Chloride (98-107) mmol/L Carbon Dioxide (21.0-32.0) mmol/L Anion Gap (3-11) mmol/L BUN (7-18) mg/dL Creatinine (0.70-1.30) mg/dL Est GFR (CKD-EPI 2020) (mL/min/1.73m2) Glucose (74-106) mg/dL Hemoglobin A1c (<5.7) % Calcium (8.5-10.1) mg/dL Magnesium Total Bilirubin (0.2-1.0) mg/dL AST (15-37) U/L ALT (16-63) U/L Alkaline Phosphatase (46-116) U/L Creatine Kinase (39-308) U/L Troponin I Pending NT-Pro-B Natriuret Pep Total Protein (6.4-8.2) g/dL Albumin (3.4-5.0) g/dL Urine Color (Yellow) Urine Clarity (Clear) Urine pH (5-8) Ur Specific [place] (1.005-1.025) Urine Protein (Neg-Trace) mg/dL Urine Ketones (Negative) mg/dL Urine Blood (Negative) Urine Nitrite (Negative) Urine Bilirubin (Negative) Urine Urobilinogen (Up to 0.2) mg/dL Ur Leukocyte Esterase (Negative) Urine RBC (0-2) HPF Urine WBC (0-5) HPF Ur Epithelial Cells (Negative) HPF Urine Crystals (Negative) HPF Urine Bacteria (Negative) HPF Urine Casts (Negative) LPF Urine Mucus (Negative) Ur Culture Indicated? Ur Random Creatinine mg/dL U Random Total Protein mg/dL U [place] Prot/Creat Ratio Ur Random Sodium mmol/L Urine Glucose (Negative) mg/dL 03/09/24 03/09/24 03/09/24 Range/Units 16:00 14:10 14:10 WBC Pending (4.4-10.8) 10^3/uL RBC Pending (4.36-5.78) 10^6/uL Hgb Pending (13.5-17.5) g/dL Hct Pending (40.0-50.0) % MCV Pending (80-95) fL MCH Pending (27.0-33.0) pg MCHC Pending (32.0-36.0) % RDW Pending (11.8-14.1) % Plt Count Pending (130-400) 10^3/uL MPV Pending (8.0-11.0) fL Immature Gran % Pending % Neutrophils % Pending % Lymphocytes % Pending % Monocytes % Pending % Eosinophils % Pending % Basophils % Pending % Nucleated RBC % (0.0-0.3) % Absolute Neutrophils Pending (1.2-6.7) 10^3/uL Absolute Lymphocytes Pending (1.2-3.4) 10^3/uL Absolute Monocytes Pending (0.1-0.8) 10^3/uL Absolute Eosinophils Pending (0.0-0.7) 10^3/uL Absolute Basophils Pending (0.0-0.2) 10^3/uL D-Dimer (<500) ng/mlFEU VBG pH 7.34 (7.31-7.41) VBG pCO2 50 (41-51) mmHg VBG pO2 35 mmHg VBG HCO3 27 (23-28) mmol/L VBG Total CO2 24 (24-29) mmol/L VBG O2 Saturation 72 % VBG Base Excess 1 (-2-3) mmol/L Sodium 125 L (136-145) mmol/L Potassium 3.7 (3.5-5.1) mmol/L Chloride 84 L (98-107) mmol/L Carbon Dioxide 28.8 (21.0-32.0) mmol/L Anion Gap 12.2 H (3-11) mmol/L BUN 53 H (7-18) mg/dL Creatinine 4.5 H* (0.70-1.30) mg/dL Est GFR (CKD-EPI 2020) 14.26 (mL/min/1.73m2) Glucose 1404 H* (74-106) mg/dL Hemoglobin A1c (<5.7) % Calcium 9.4 (8.5-10.1) mg/dL Magnesium Total Bilirubin (0.2-1.0) mg/dL AST (15-37) U/L ALT (16-63) U/L Alkaline Phosphatase (46-116) U/L Creatine Kinase (39-308) U/L Troponin I 31 NT-Pro-B Natriuret Pep Total Protein (6.4-8.2) g/dL Albumin (3.4-5.0) g/dL Urine Color Yellow (Yellow) Urine Clarity Clear (Clear) Urine pH 5.5 (5-8) Ur Specific [place] <= 1.005 (1.005-1.025) Urine Protein 30 H (Neg-Trace) mg/dL Urine Ketones Negative (Negative) mg/dL Urine Blood Trace-lysed H (Negative) Urine Nitrite Negative (Negative) Urine Bilirubin Negative (Negative) Urine Urobilinogen 0.2 (Up to 0.2) mg/dL Ur Leukocyte Esterase Negative (Negative) Urine RBC 0-2 (0-2) HPF Urine WBC 0-2 (0-5) HPF Ur Epithelial Cells Rare (Negative) HPF Urine Crystals Negative (Negative) HPF Urine Bacteria Negative (Negative) HPF Urine Casts 0-2 Hyaline (Negative) LPF Urine Mucus Negative (Negative) Ur Culture Indicated? No Ur Random Creatinine 46.58 46.44 mg/dL U Random Total Protein 32.5 mg/dL U [place] Prot/Creat Ratio 0.69 Ur Random Sodium 11 mmol/L Urine Glucose 500 H (Negative) mg/dL 03/09/24 03/09/24 03/09/24 Range/Units 13:05 12:41 12:36 WBC 12.28 H (4.4-10.8) 10^3/uL RBC 4.87 (4.36-5.78) 10^6/uL Hgb 14.7 (13.5-17.5) g/dL Hct 42.4 (40.0-50.0) % MCV 87 (80-95) fL MCH 30.2 (27.0-33.0) pg MCHC 34.7 (32.0-36.0) % RDW 11.6 L (11.8-14.1) % Plt Count 203 (130-400) 10^3/uL MPV 11.0 (8.0-11.0) fL Immature Gran % 0.6 % Neutrophils % 83.6 % Lymphocytes % 9.4 % Monocytes % 4.7 % Eosinophils % 1.0 % Basophils % 0.7 % Nucleated RBC % 0.0 (0.0-0.3) % Absolute Neutrophils 10.27 H (1.2-6.7) 10^3/uL Absolute Lymphocytes 1.15 L (1.2-3.4) 10^3/uL Absolute Monocytes 0.58 (0.1-0.8) 10^3/uL Absolute Eosinophils 0.12 (0.0-0.7) 10^3/uL Absolute Basophils 0.09 (0.0-0.2) 10^3/uL D-Dimer 388 (<500) ng/mlFEU VBG pH (7.31-7.41) VBG pCO2 (41-51) mmHg VBG pO2 mmHg VBG HCO3 (23-28) mmol/L VBG Total CO2 (24-29) mmol/L VBG O2 Saturation % VBG Base Excess (-2-3) mmol/L Sodium 121 L* (136-145) mmol/L Potassium 3.6 (3.5-5.1) mmol/L Chloride 84 L (98-107) mmol/L Carbon Dioxide 27.0 (21.0-32.0) mmol/L Anion Gap 10.0 (3-11) mmol/L BUN 51 H (7-18) mg/dL Creatinine 4.4 H* (0.70-1.30) mg/dL Est GFR (CKD-EPI 2020) 14.65 (mL/min/1.73m2) Glucose 1103 H* (74-106) mg/dL Hemoglobin A1c 11.2 H (<5.7) % Calcium 9.1 (8.5-10.1) mg/dL Magnesium 2.4 Cancelled Total Bilirubin 0.70 (0.2-1.0) mg/dL AST 6 L (15-37) U/L ALT 14 L (16-63) U/L Alkaline Phosphatase 131 H (46-116) U/L Creatine Kinase 64 (39-308) U/L Troponin I 38 Cancelled NT-Pro-B Natriuret Pep 1386 H Cancelled Total Protein 8.4 H (6.4-8.2) g/dL Albumin 3.7 (3.4-5.0) g/dL Urine Color (Yellow) Urine Clarity (Clear) Urine pH (5-8) Ur Specific [place] (1.005-1.025) Urine Protein (Neg-Trace) mg/dL Urine Ketones (Negative) mg/dL Urine Blood (Negative) Urine Nitrite (Negative) Urine Bilirubin (Negative) Urine Urobilinogen (Up to 0.2) mg/dL Ur Leukocyte Esterase (Negative) Urine RBC (0-2) HPF Urine WBC (0-5) HPF Ur Epithelial Cells (Negative) HPF Urine Crystals (Negative) HPF Urine Bacteria (Negative) HPF Urine Casts (Negative) LPF Urine Mucus (Negative) Ur Culture Indicated? Ur Random Creatinine mg/dL U Random Total Protein mg/dL U [place] Prot/Creat Ratio Ur Random Sodium mmol/L Urine Glucose (Negative) mg/dL Intake and Output - 24 Hour Total 03/09/24 11:59 thru 03/09/24 16:16 Intake Total 100 Output Total 350 Balance -250 Weight 108.862 kg Intake: IV 100 Output: Urine 350 Falls Risk Assessment History of Falls No History 03/09/24 12:09 Contributing Factors Impairments,Medications 03/09/24 12:09 Ambulatory Aids Uses ambulatory device + 03/09/24 12:09 Tubes/Lines None 03/09/24 12:09 Gait Evaluation W/no contributing factors 03/09/24 12:09 Cognition No cognitive impairment 03/09/24 12:09 Fall Total Score 46 03/09/24 12:09 Level of Risk Moderate Risk 03/09/24 12:09 Problems (Last Reviewed 01/03/24 @ 14:05 by Jane Rosario MD) Acute kidney injury (Acute) Acute hyponatremia (Acute) Diabetes mellitus with hyperglycemia (Acute) ASCVD (arteriosclerotic cardiovascular disease) (Acute) Stage 4 chronic kidney disease (Acute) Hyperlipidemia (Acute) Type 2 diabetes mellitus without complications (Chronic) Obstructive sleep apnea syndrome (Chronic) Essential hypertension (Chronic 04/28/15) v v v v v v v v v Sending and/or Receiving Nurses: Please use comment section below to note any information pertinent to the patient hand-off not included above. Information / Comments: Report received from: Antonina Craig RN All questions answered
[2024-03-09 16:38] LABS: Troponin I 30 ng/L (<or=76)
[2024-03-09 16:43] LABS: Abs Immature Grans 0.06 10^3/uL (0.0-0.06); Absolute Basophil Count 0.08 10^3/uL (0.0-0.2); Absolute Eosinophil Count 0.04 10^3/uL (0.0-0.7); Absolute Lymphocyte Count 1.07 10^3/uL (1.2-3.4); Absolute Neutrophil Count 11.23 10^3/uL (1.2-6.7); Basophils % 0.6 %; Eosinophils % 0.3 %; HCT 42.4 % (40.0-50.0); Immature Grans % 0.5 %; Lymphocytes % 8.3 %; MCH 30.2 pg (27.0-33.0); MCHC 35.4 % (32.0-36.0); MCV 86 fL (80-95); MPV 10.9 fL (8.0-11.0); Neutrophils % 87.3 %; Platelet Count 201 10^3/uL (130-400); RBC 4.96 10^6/uL (4.36-5.78); RDW 11.6 % (11.8-14.1); RDW-SD 35.4 fL; WBC 12.86 10^3/uL (4.4-10.8)
[2024-03-09 16:47] LABS: Absolute Monocyte Count 0.39 10^3/uL (0.1-0.8)
[2024-03-09] MEDS: Normal Saline 1,000 ML 150 ML IV (17:18)
[2024-03-09] MEDS: INSULIN REGULAR IN 0.9 % NACL 100 UNIT/100 ML BAG IVINF (17:18)
[2024-03-09] MEDS: Heparin 5,000 UNITS/ML VIAL 5000 UNITS SC (17:32)
[2024-03-09 18:59] LABS: Abs Immature Grans 0.05 10^3/uL (0.0-0.06); Absolute Basophil Count 0.09 10^3/uL (0.0-0.2); Absolute Eosinophil Count 0.04 10^3/uL (0.0-0.7); Absolute Lymphocyte Count 1.23 10^3/uL (1.2-3.4); Absolute Monocyte Count 0.41 10^3/uL (0.1-0.8); Absolute Neutrophil Count 10.91 10^3/uL (1.2-6.7); Basophils % 0.7 %; Eosinophils % 0.3 %; HCT 43.4 % (40.0-50.0); HGB 15.4 g/dL (13.5-17.5); Immature Grans % 0.4 %; Lymphocytes % 9.7 %; MCHC 35.5 % (32.0-36.0); MCV 85 fL (80-95); MPV 11.1 fL (8.0-11.0); Monocytes % 3.2 %; Neutrophils % 85.7 %; Platelet Count 212 10^3/uL (130-400); RBC 5.13 10^6/uL (4.36-5.78); RDW 11.5 % (11.8-14.1); RDW-SD 35.2 fL; WBC 12.73 10^3/uL (4.4-10.8)
[2024-03-09 19:05] LABS: Anion Gap 10.8 mmol/L (3-11); BUN 55 mg/dL (7-18); CO2 31.2 mmol/L (21.0-32.0); Calcium 9.4 mg/dL (8.5-10.1); Chloride 88 mmol/L (98-107); Estimated GFR 14.26 (mL/min/1.73m2); Potassium 3.6 mmol/L (3.5-5.1); Sodium 130 mmol/L (136-145)
[2024-03-09 19:07] LABS: CREATININE 4.5 mg/dL (0.70-1.30); Glucose 992 mg/dL (74-106)
[2024-03-09] MEDS: Carvedilol 6.25 MG TAB PO (20:14)
[2024-03-09] MEDS: Allopurinol 100 MG TAB PO (20:14)
[2024-03-09 20:27] LABS: Glucose 913 mg/dL (74-106)
[2024-03-09] MEDS: Insulin Glargine 300 UNITS/3 ML PEN 10 UNITS SC (20:28)
[2024-03-09] MEDS: Normal Saline Flush 10 ML SYR (20:30)
[2024-03-09] MEDS: Acetaminophen 325 MG TAB PO (21:29)
[2024-03-09 21:46] LABS: Glucose 838 mg/dL (74-106)
[2024-03-09 22:45] LABS: Glucose 828 mg/dL (74-106)
[2024-03-09 23:09] LABS: HCT 41.4 % (40.0-50.0); MCH 30.5 pg (27.0-33.0); MCHC 36.2 % (32.0-36.0); MCV 84 fL (80-95); MPV 10.6 fL (8.0-11.0); Platelet Count 205 10^3/uL (130-400); RBC 4.92 10^6/uL (4.36-5.78); RDW 11.5 % (11.8-14.1); RDW-SD 34.8 fL; WBC 13.84 10^3/uL (4.4-10.8)
[2024-03-09 23:21] LABS: BUN 55 mg/dL (7-18); Calcium 9.3 mg/dL (8.5-10.1); Chloride 94 mmol/L (98-107); Estimated GFR 14.65 (mL/min/1.73m2); Potassium 3.4 mmol/L (3.5-5.1); Sodium 134 mmol/L (136-145)
[2024-03-09] MEDS: Normal Saline 1,000 ML 250 ML IV (23:27)
[2024-03-09 23:36] LABS: CREATININE 4.4 mg/dL (0.70-1.30); Glucose 770 mg/dL (74-106)
[2024-03-10] VITALS (39 sets, daily range): BP systolic 95–139; BP diastolic 53–100; PULSE 51–81; RESP 10–23; TEMP 37.1–37.8; O2SAT 91–99
[2024-03-10 00:38] LABS: Glucose 702 mg/dL (74-106)
[2024-03-10] MEDS: Heparin 5,000 UNITS/ML VIAL 5000 UNITS SC ×3 (00:41→15:56)
[2024-03-10 01:53] LABS: Glucose 636 mg/dL (74-106)
[2024-03-10 02:39] LABS: Glucose 564 mg/dL (74-106)
[2024-03-10 03:31] LABS: Anion Gap 7.1 mmol/L (3-11); BUN 56 mg/dL (7-18); CO2 31.9 mmol/L (21.0-32.0); Calcium 9.1 mg/dL (8.5-10.1); Chloride 100 mmol/L (98-107); Estimated GFR 14.65 (mL/min/1.73m2); Sodium 139 mmol/L (136-145)
[2024-03-10 03:46] LABS: CREATININE 4.4 mg/dL (0.70-1.30); Glucose 505 mg/dL (74-106)
[2024-03-10] MEDS: Normal Saline 1,000 ML 250 ML IV (03:49)
[2024-03-10] MEDS: Ondansetron 4 MG/2 ML VIAL IVP (04:04)
[2024-03-10] MEDS: Acetaminophen 325 MG TAB PO ×2 (04:05→16:57)
[2024-03-10 04:32] LABS: Glucose 474 mg/dL (74-106)
[2024-03-10] MEDS: POTASSIUM CHLORIDE/0.9% NACL 1,000 ML 250 MEQ IV ×4 (04:36→16:45)
[2024-03-10 05:30] LABS: Glucose 416 mg/dL (74-106)
[2024-03-10 07:44] LABS: Anion Gap 9.3 mmol/L (3-11); BUN 53 mg/dL (7-18); CO2 29.7 mmol/L (21.0-32.0); Calcium 9.2 mg/dL (8.5-10.1); Chloride 104 mmol/L (98-107); Estimated GFR 15.49 (mL/min/1.73m2); Glucose 320 mg/dL (74-106); Potassium 3.1 mmol/L (3.5-5.1); Sodium 143 mmol/L (136-145)
[2024-03-10 07:47] LABS: CREATININE 4.2 mg/dL (0.70-1.30)
[2024-03-10] MEDS: Aspirin E.C. 81 MG TABEC PO (08:27)
[2024-03-10] MEDS: Ezetimibe 10 MG TAB PO (08:28)
[2024-03-10] MEDS: Allopurinol 100 MG TAB PO ×2 (08:28→20:43)
--- NOTE | 2024-03-10 08:41 | INITIAL_ITS ---
Date of service: 03/10/24 Time of Service: 08:41 Care Management Initial Assmt Initial Assessment Reason for Hospitalization: Presented to the ED with weakness and weight loss. Functional Status/Living Situation Patient Presentation: Chucky presented to the ED yesterday with c/o bilateral lower extremity weakness and unintentional weight loss. He was found to have abnormal lab values, significant for BUN 53, creatinine 4.5 and glucose of 1404. He has been on oral tx only for his diabetes, which was diagnosed about 10y ago. Chucky was placed on an insulin gtt, ordered for q4h labs and admitted to ICU for close monitoring. He is having hourly BS checks, and since this am, when he starting eating, he has required an increase in the gtt. When [facility] met with Tien today, he was lying in the bed in the ICU. He had IVF running, as well as an insulin gtt. He stated that he was really surprised that this had happened to him. He said that he recently had an A1-C that was only 4.6, and his doctor was so pleased. He stated that he did have excessive thirst for a few days prior to admission, and feels he should have know better. Today his thirst has improved, but he stated that he is still having some blurry vision. He stated that he does not want to go home on insulin, and he doesn't think he will need it. He has been ordered for a nurses educator consult. Tien stated that when he was first dx with DM, he attended a class and got nothing out of it. CM notified PCPs office of this admission and some ongoing need for diabetic education. 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 Medications Medication Management: No Issues/Barriers identified (Tien stated to CM that he takes all his medications as prescribed.) and Issues/Barriers Advance Directives Advance Directives: Do you have an Advance Directive: N 02/11/15 14:16 AD On File at [facility]: N 11/28/12 08:53 Date Asked 03/09/24 03/09/24 12:03 AD Date Reviewed COLST On File at [facility] COLST Date Scanned Code Status Resuscitation Status Full Code Insurance Coverage/Financial Issues Insurance: Cign[employer] Care Team Visit Care Team Role Provider Type Maximus Sanchez NP Primary Care Provider NURSE PRACTITIONER Yina Gramajo Other Providers DIRECTOR OF EMAIL MARKETING Vidya Zabala RDN, [facility] Other Providers MANAGER TRACK Lizbeth Trujillo Other Providers MANAGER TRACK Shena Cruz Other Providers DIRECTOR OF EMAIL MARKETING Terrie Sotelo Other Providers DIRECTOR OF EMAIL MARKETING Adrianne Braden RN Other Providers DIRECTOR OF EMAIL MARKETING Jb Rondon RDN Other Providers MANAGER TRACK Chino Napoles MD Emergency Provider [facility] STAFF PHYSICIAN Burke Bullock MD Admit Provider [facility] STAFF PHYSICIAN Attending Provider Discharge Potential Discharge Needs: PCP F/U Appt Anticipated Barriers to Discharge: None Identified Patient/Family Education Needs: Review discharge instructions, discuss Ask Me Three Transportation: Private vehicle Plan: Anticipate that Chucky will be discharged home once medically stable. He will need to f/u with his PCP and the media center director school at a previously scheduled appt on 03/27. He will continue per his newly prescribed plan of care and transport home in a private vehicle. CM will continue to follow and update the plan as needed. Social Determinants of Health Screening Social Determinants of Health last assessed: 03/10/24 Will the Patient Participate in the Screening?: Yes Do you worry about having a steady place to live?: no Problems where you live: no known problems In the past 12 months, have you had to go without electric, gas, oil or water in your home?: no Have you or anyone in your house had to go without enough food to eat?: no Has lack of transportation kept you from medical appointments or from doing things needed for daily living?: no Has anyone in your life made you feel unsafe or unsupported?: no How hard is it for you to pay for the very basics like food, housing, medical care, and heating? Would you say it is:: Not hard at all Do you want help finding or keeping work or a job?: I do not need or want help If for any reason you need help with day-to-day activities such as bathing, preparing meals, shopping, managing finances, etc., do you get the help you need?: I don?t need any help How often do you feel lonely or isolated from those around you?: Never Do you speak a language other than Luxembourgish at home?: No Does the patient want assistance with any of the above?: No PFSH All Active Problems (Updated 03/09/24 @ 14:59 by Chino Napoles MD) Acute kidney injury (Acute) Acute hyponatremia (Acute) Diabetes mellitus with hyperglycemia (Acute) ASCVD (arteriosclerotic cardiovascular disease) (Acute) Flash pulmonary edema (Acute 11/2023) TTE w/ LVEF 41% lateral akinesis, similar to 09/2023. Neg MPI 12/16/23. Encourage low salt diet STEMI (ST elevation myocardial infarction) (Acute) Chest pain at rest (Acute) Right carotid bruit (Acute) Stage 4 chronic kidney disease (Acute) Hyperlipidemia (Acute) Type 2 diabetes mellitus without complications (Chronic) Obstructive sleep apnea syndrome (Chronic) Essential hypertension (Chronic 04/28/15) Medical History Hypertensive emergency (~11/2023) Chest pain Gout (03/25/12) Smoker (05/19/15) 2020- 39 PPD hx Renal insufficiency (04/01/15) [facility] [place]- no longer following Cannot afford their visits Nicotine dependence Lichen sclerosus of penis (04/15/15) Surgical History Appendectomy (~11/2009) Family History Mother No problems noted. 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 Pets and animals: No Sexually active: Yes Do you think of yourself as: straight/heterosexual Current gender identity: male What is your relationship status?: How often do you talk on the phone with friends or family?: once per week How often do you get together with friends or relatives?: once per week How often do you attend lutheran or holiness services?: 1-3 times per year Do you belong to any clubs or organized social groups?: no Panel score (0-1 are the most socially isolated patients): 0 What type of physical activity do you participate in: none Lorena/Buddhist: Holiness Seatbelt use: never Helmet use: Yes Helmet use: sometimes Drive intox or ride w/intox public transit trolley driver: No Do you feel safe at home: Yes Do you feel safe in your relationship?: Yes Readmission Within the Past 30 Days Yes or No: No Anticipated HH Services Anticipated HH Services at Discharge [facility].
--- NOTE | 2024-03-10 09:46 | W.PM.PROGNOT ---
Date of Service Date of service: 03/10/24 Time of Service: 09:47 Assessment and Plan Assessment and plan (1) Essential hypertension: Status: Chronic Assessment and plan: Patient is currently on amlodipine 10 mg carvedilol 6.25 mg twice daily Lasix 20 mg daily which has been up to 80 mg daily actually losartan 100 mg daily. Current blood pressure is 151/94. I will hold his ARB secondary to worsening kidney function at this time. (2) Hyperlipidemia: Status: Acute Assessment and plan: Patient is currently on ezetimibe 10 mg daily as well as Repatha 140 mg biweekly. (3) ASCVD (arteriosclerotic cardiovascular disease): Status: Acute Assessment and plan: Continue with his prasugrel, bp meds, antilipids (4) Type 2 diabetes mellitus without complications: Status: Chronic Assessment and plan: Patient does have a somewhat interesting presentation and that he is not appears to be acting like someone who has been diagnosed with type 1 diabetes with a fairly robust increase in his blood glucose as well as worsening kidney function as well as polyuria and polydipsia. I did put him in the ICU for ICU drip of insulin as well as long-acting insulin. Will check his electrolytes essentially every 2-4 hours to monitor for improvements of his sodium as well as his glucose levels 03.10.24 Pt has beenhad a fairly gentle decrease in his BG. My plan is to stop the IV insulin when BG gets below 200 and start on RISS as well as retirement lantus. Can downgrade to med/surg when off the drip (5) Stage 4 chronic kidney disease: Status: Acute Assessment and plan: Holding losartan 1. Latest bun/cr at 55/4.4 with a GFR at 14.65, Pt does appear to be stable looking at prior labs (6) Obstructive sleep apnea syndrome: Status: Chronic Assessment and plan: Will discuss with RT in the a.m. Subjective Subjective Interval history since last seen: Pt seen and examined in the ICU this am. States that he does feel better but is still weak. POC d/w pt as well as with bedside nurse during ICU huddle Exam Narrative Exam Narrative: Head eyes ears nose and throat: Normocephalic atraumatic mucous membranes dry extraocular motions are intact pupils are equal round and reactive to light Neck: No lymphadenopathy no JVD no thyroid megaly Cardiovascular: Regular rate and rhythm no murmurs gallops Pulm: Clear to auscultation bilaterally with good air exchange no accessory muscle use noted speaking in complete sentences Abdomen: Soft nontender nondistended bowel sounds active x 4 quadrants Extremities: No pitting edema bilaterally in the lower extremities Neurologic: Cranial nerves II through XII are intact as tested reflexes in the upper and lower extremities are normal as tested Psych: Alert and oriented x 3 but somewhat somnolent. Patient is able to give a linear history. General: 58-year-old gentleman who appears his stated age no apparent distress Objective Last Vital Signs Temp 37.1 C 03/10/24 08:45 Pulse 63 03/10/24 09:01 Resp 12 03/10/24 09:01 BP 126/100 H 03/10/24 09:01 Pulse Ox 95 03/10/24 09:01 Laboratory Results - last 24 hr 03/09/24 03/09/24 03/09/24 12:36 12:41 13:05 WBC 12.28 H RBC 4.87 Hgb 14.7 Hct 42.4 MCV 87 MCH 30.2 MCHC 34.7 RDW 11.6 L Plt Count 203 MPV 11.0 Immature Gran % 0.6 Neutrophils % 83.6 Lymphocytes % 9.4 Monocytes % 4.7 Eosinophils % 1.0 Basophils % 0.7 Nucleated RBC % 0.0 Absolute Neutrophils 10.27 H Absolute Lymphocytes 1.15 L Absolute Monocytes 0.58 Absolute Eosinophils 0.12 Absolute Basophils 0.09 D-Dimer 388 VBG pH VBG pCO2 VBG pO2 VBG HCO3 VBG Total CO2 VBG O2 Saturation VBG Base Excess Sodium 121 L* Potassium 3.6 Chloride 84 L Carbon Dioxide 27.0 Anion Gap 10.0 BUN 51 H Creatinine 4.4 H* Est GFR (CKD-EPI 2020) 14.65 Glucose 1103 H* Hemoglobin A1c 11.2 H Calcium 9.1 Magnesium Cancelled 2.4 Total Bilirubin 0.70 AST 6 L ALT 14 L Alkaline Phosphatase 131 H Creatine Kinase 64 Troponin I Cancelled 38 NT-Pro-B Natriuret Pep Cancelled 1386 H Total Protein 8.4 H Albumin 3.7 Urine Color Urine Clarity Urine pH Ur Specific What Cheer Urine Protein Urine Ketones Urine Blood Urine Nitrite Urine Bilirubin Urine Urobilinogen Ur Leukocyte Esterase Urine RBC Urine WBC Ur Epithelial Cells Urine Crystals Urine Bacteria Urine Casts Urine Mucus Ur Culture Indicated? Ur Random Creatinine U Random Total Protein U Jelm Prot/Creat Ratio Ur Random Sodium Urine Glucose 03/09/24 03/09/24 03/09/24 14:10 14:10 14:35 WBC 12.86 H RBC 4.96 Hgb 15.0 Hct 42.4 MCV 86 MCH 30.2 MCHC 35.4 RDW 11.6 L Plt Count 201 MPV 10.9 Immature Gran % 0.5 Neutrophils % 87.3 Lymphocytes % 8.3 Monocytes % 3.0 Eosinophils % 0.3 Basophils % 0.6 Nucleated RBC % 0.0 Absolute Neutrophils 11.23 H Absolute Lymphocytes 1.07 L Absolute Monocytes 0.39 Absolute Eosinophils 0.04 Absolute Basophils 0.08 D-Dimer VBG pH 7.34 VBG pCO2 50 VBG pO2 35 VBG HCO3 27 VBG Total CO2 24 VBG O2 Saturation 72 VBG Base Excess 1 Sodium 125 L Potassium 3.7 Chloride 84 L Carbon Dioxide 28.8 Anion Gap 12.2 H BUN 53 H Creatinine 4.5 H* Est GFR (CKD-EPI 2020) 14.26 Glucose 1404 H* Hemoglobin A1c Calcium 9.4 Magnesium Total Bilirubin AST ALT Alkaline Phosphatase Creatine Kinase Troponin I 31 NT-Pro-B Natriuret Pep Total Protein Albumin Urine Color Yellow Urine Clarity Clear Urine pH 5.5 Ur Specific What Cheer <= 1.005 Urine Protein 30 H Urine Ketones Negative Urine Blood Trace-lysed H Urine Nitrite Negative Urine Bilirubin Negative Urine Urobilinogen 0.2 Ur Leukocyte Esterase Negative Urine RBC 0-2 Urine WBC 0-2 Ur Epithelial Cells Rare Urine Crystals Negative Urine Bacteria Negative Urine Casts 0-2 Hyaline Urine Mucus Negative Ur Culture Indicated? No Ur Random Creatinine 46.44 46.58 U Random Total Protein 32.5 U Jelm Prot/Creat Ratio 0.69 Ur Random Sodium 11 Urine Glucose 500 H 03/09/24 03/09/24 03/09/24 16:14 18:34 20:05 WBC 12.73 H RBC 5.13 Hgb 15.4 Hct 43.4 MCV 85 MCH 30.0 MCHC 35.5 RDW 11.5 L Plt Count 212 MPV 11.1 H Immature Gran % 0.4 Neutrophils % 85.7 Lymphocytes % 9.7 Monocytes % 3.2 Eosinophils % 0.3 Basophils % 0.7 Nucleated RBC % 0.0 Absolute Neutrophils 10.91 H Absolute Lymphocytes 1.23 Absolute Monocytes 0.41 Absolute Eosinophils 0.04 Absolute Basophils 0.09 D-Dimer VBG pH VBG pCO2 VBG pO2 VBG HCO3 VBG Total CO2 VBG O2 Saturation VBG Base Excess Sodium 130 L Potassium 3.6 Chloride 88 L Carbon Dioxide 31.2 Anion Gap 10.8 BUN 55 H Creatinine 4.5 H* Est GFR (CKD-EPI 2020) 14.26 Glucose 992 H* 913 H* Hemoglobin A1c Calcium 9.4 Magnesium Total Bilirubin AST ALT Alkaline Phosphatase Creatine Kinase Troponin I 30 NT-Pro-B Natriuret Pep Total Protein Albumin Urine Color Urine Clarity Urine pH Ur Specific What Cheer Urine Protein Urine Ketones Urine Blood Urine Nitrite Urine Bilirubin Urine Urobilinogen Ur Leukocyte Esterase Urine RBC Urine WBC Ur Epithelial Cells Urine Crystals Urine Bacteria Urine Casts Urine Mucus Ur Culture Indicated? Ur Random Creatinine U Random Total Protein U Jelm Prot/Creat Ratio Ur Random Sodium Urine Glucose 03/09/24 03/09/24 03/09/24 21:08 22:05 23:00 WBC 13.84 H RBC 4.92 Hgb 15.0 Hct 41.4 MCV 84 MCH 30.5 MCHC 36.2 H RDW 11.5 L Plt Count 205 MPV 10.6 Immature Gran % Neutrophils % Lymphocytes % Monocytes % Eosinophils % Basophils % Nucleated RBC % Absolute Neutrophils Absolute Lymphocytes Absolute Monocytes Absolute Eosinophils Absolute Basophils D-Dimer VBG pH VBG pCO2 VBG pO2 VBG HCO3 VBG Total CO2 VBG O2 Saturation VBG Base Excess Sodium 134 L Potassium 3.4 L Chloride 94 L Carbon Dioxide 30.0 Anion Gap 10.0 BUN 55 H Creatinine 4.4 H* Est GFR (CKD-EPI 2020) 14.65 Glucose 838 H* 828 H* 770 H* Hemoglobin A1c Calcium 9.3 Magnesium Total Bilirubin AST ALT Alkaline Phosphatase Creatine Kinase Troponin I NT-Pro-B Natriuret Pep Total Protein Albumin Urine Color Urine Clarity Urine pH Ur Specific What Cheer Urine Protein Urine Ketones Urine Blood Urine Nitrite Urine Bilirubin Urine Urobilinogen Ur Leukocyte Esterase Urine RBC Urine WBC Ur Epithelial Cells Urine Crystals Urine Bacteria Urine Casts Urine Mucus Ur Culture Indicated? Ur Random Creatinine U Random Total Protein U Jelm Prot/Creat Ratio Ur Random Sodium Urine Glucose 03/10/24 03/10/24 03/10/24 00:00 01:00 02:10 WBC RBC Hgb Hct MCV MCH MCHC RDW Plt Count MPV Immature Gran % Neutrophils % Lymphocytes % Monocytes % Eosinophils % Basophils % Nucleated RBC % Absolute Neutrophils Absolute Lymphocytes Absolute Monocytes Absolute Eosinophils Absolute Basophils D-Dimer VBG pH VBG pCO2 VBG pO2 VBG HCO3 VBG Total CO2 VBG O2 Saturation VBG Base Excess Sodium Potassium Chloride Carbon Dioxide Anion Gap BUN Creatinine Est GFR (CKD-EPI 2020) Glucose 702 H* 636 H* 564 H* Hemoglobin A1c Calcium Magnesium Total Bilirubin AST ALT Alkaline Phosphatase Creatine Kinase Troponin I NT-Pro-B Natriuret Pep Total Protein Albumin Urine Color Urine Clarity Urine pH Ur Specific What Cheer Urine Protein Urine Ketones Urine Blood Urine Nitrite Urine Bilirubin Urine Urobilinogen Ur Leukocyte Esterase Urine RBC Urine WBC Ur Epithelial Cells Urine Crystals Urine Bacteria Urine Casts Urine Mucus Ur Culture Indicated? Ur Random Creatinine U Random Total Protein U Jelm Prot/Creat Ratio Ur Random Sodium Urine Glucose 03/10/24 03/10/24 03/10/24 03:08 04:03 05:09 WBC RBC Hgb Hct MCV MCH MCHC RDW Plt Count MPV Immature Gran % Neutrophils % Lymphocytes % Monocytes % Eosinophils % Basophils % Nucleated RBC % Absolute Neutrophils Absolute Lymphocytes Absolute Monocytes Absolute Eosinophils Absolute Basophils D-Dimer VBG pH VBG pCO2 VBG pO2 VBG HCO3 VBG Total CO2 VBG O2 Saturation VBG Base Excess Sodium 139 Potassium 3.0 L Chloride 100 Carbon Dioxide 31.9 Anion Gap 7.1 BUN 56 H Creatinine 4.4 H* Est GFR (CKD-EPI 2020) 14.65 Glucose 505 H* 474 H 416 H Hemoglobin A1c Calcium 9.1 Magnesium Total Bilirubin AST ALT Alkaline Phosphatase Creatine Kinase Troponin I NT-Pro-B Natriuret Pep Total Protein Albumin Urine Color Urine Clarity Urine pH Ur Specific What Cheer Urine Protein Urine Ketones Urine Blood Urine Nitrite Urine Bilirubin Urine Urobilinogen Ur Leukocyte Esterase Urine RBC Urine WBC Ur Epithelial Cells Urine Crystals Urine Bacteria Urine Casts Urine Mucus Ur Culture Indicated? Ur Random Creatinine U Random Total Protein U Jelm Prot/Creat Ratio Ur Random Sodium Urine Glucose 03/10/24 07:12 WBC RBC Hgb Hct MCV MCH MCHC RDW Plt Count MPV Immature Gran % Neutrophils % Lymphocytes % Monocytes % Eosinophils % Basophils % Nucleated RBC % Absolute Neutrophils Absolute Lymphocytes Absolute Monocytes Absolute Eosinophils Absolute Basophils D-Dimer VBG pH VBG pCO2 VBG pO2 VBG HCO3 VBG Total CO2 VBG O2 Saturation VBG Base Excess Sodium 143 Potassium 3.1 L Chloride 104 Carbon Dioxide 29.7 Anion Gap 9.3 BUN 53 H Creatinine 4.2 H* Est GFR (CKD-EPI 2020) 15.49 Glucose 320 H Hemoglobin A1c Calcium 9.2 Magnesium Total Bilirubin AST ALT Alkaline Phosphatase Creatine Kinase Troponin I NT-Pro-B Natriuret Pep Total Protein Albumin Urine Color Urine Clarity Urine pH Ur Specific What Cheer Urine Protein Urine Ketones Urine Blood Urine Nitrite Urine Bilirubin Urine Urobilinogen Ur Leukocyte Esterase Urine RBC Urine WBC Ur Epithelial Cells Urine Crystals Urine Bacteria Urine Casts Urine Mucus Ur Culture Indicated? Ur Random Creatinine U Random Total Protein U Jelm Prot/Creat Ratio Ur Random Sodium Urine Glucose Time Spent with Patient Time Spent with Patient: 35-49 minutes Time was spent: preparing to see the patient(eg.review tests), ordering medications,tests, procedures, referring, communicating with other health career transition specialist, indepentently interpreting results, counseling the patient and care coordination
[2024-03-10] MEDS: Normal Saline Flush 10 ML SYR (10:16)
[2024-03-10 10:32] LABS: Anion Gap 6.9 mmol/L (3-11); BUN 58 mg/dL (7-18); CO2 30.1 mmol/L (21.0-32.0); Calcium 8.9 mg/dL (8.5-10.1); Chloride 105 mmol/L (98-107); Estimated GFR 15.06 (mL/min/1.73m2); Glucose 403 mg/dL (74-106); Potassium 3.3 mmol/L (3.5-5.1); Sodium 142 mmol/L (136-145)
[2024-03-10 10:34] LABS: CREATININE 4.3 mg/dL (0.70-1.30)
--- NOTE | 2024-03-10 10:43 | W.INDIABCONS ---
Date of service: 03/10/24 Time of Service: 10:15 Diabetes Inpatient Consult Reason for Visit: diabetes education and management consult DESCRIPTION/ASSESSMENT: Mr Pérez sitting up on my visit. He is 58yo male admitted with HUSAM on CKD4. PMH includes ID this past April, DMII, HLD, HTN, KATIE, ASCVD. His glucose has been far from target with A1c of 11.2 on 03/09. Fasting of 403 this morning with 328 fingerstick at brakfast and 406 at lunch. No diabetes meds listed on home med list. Pt cannot tell me what diabetes meds he had prescriptions for. He showed me pictures of meds at home which were all cardiac meds and vitamin D. He knows he was on metformin when asked but remembers being taken off (most likely due to low GFR). He expresses unwillingness to take insulin at home. Declined education at this time - states he already went through it with cardiac rehab and when first dx with diabetes. Pt presents with lower knowledge of nutrition per our interview, as well as finding difficult and overwhelming to manage his chronic conditions on top of his employment. He lives alone. he has had symptoms of hyperglycemia for some time now with blurry vision reported, frequent urination and fatigue, weight loss. Currently ordered for 10u glargine and 1unit/hour insulin aspart drip. INTERVENTION: will continue to check with patient and work towards more education with med managemengt and diet managment with diabetes - we discussed benefits of community connections program but states he doesn't have time for additional appointments. Would recommend urin albumin to creatinine ratio lab. IF more consistent GFR over 20 would consider SGLT2-i and metformin if over 45 (but doubt this is achievable at this time). Could consider glipizde and working with PCP to get on GLP-1. PT insulin infusion rate most likely needs to be titrated as he may need to get to glucose target of ~140-180. With high fasting glucose would also slowly titrate basal insulin. PLAN: will visit with pt again tomorrow to check on willingness to work closer in outpatient setting and also to check back to see if open to injecting insulin for better control - perhaps even NPH twice daily may help if orals are limited due to kidney function. Time Spent in Nutritional Counseling and Treatment: 25 minutes
--- NOTE | 2024-03-10 14:15 | PT.INIE ---
PT Notes Visit Reasons: Weakness Physical Therapy Inpatient Initial Evaluation Date: 03/10/2024 Referring Doctor: Burke Bullock MD PT Orders: PT CONSULT: Eval/treat Precautions: Fall. Standard. Activity as tolerated. Patient Profile/Admitting Diagnosis: Chucky is a 58-year-old male admitted to the ED on 03/09/2024 due to lower extremity weakness, muscle cramping, unintentional weight loss, and shortness of breath. Patient was admitted to the ICU unit for close monitoring and management of essential hypertension, hyperlipidemia, ASCVD, type 2 diabetes mellitus stage IV kidney disease, and KATIE. PMHX: All Active Problems (Updated 03/09/24 @ 14:59 by Chino Napoles MD) Acute kidney injury (Acute) Acute hyponatremia (Acute) Diabetes mellitus with hyperglycemia (Acute) ASCVD (arteriosclerotic cardiovascular disease) (Acute) Flash pulmonary edema (Acute 11/2023) TTE w/ LVEF 41% lateral akinesis, similar to 09/2023. Neg MPI 12/16/23. Encourage low salt diet STEMI (ST elevation myocardial infarction) (Acute) Chest pain at rest (Acute) Right carotid bruit (Acute) Stage 4 chronic kidney disease (Acute) Hyperlipidemia (Acute) Type 2 diabetes mellitus without complications (Chronic) Obstructive sleep apnea syndrome (Chronic) Essential hypertension (Chronic 04/28/15) Medical History Hypertensive emergency (~11/2023) Chest pain Gout (03/25/12) Smoker (05/19/15) 2020- 39 PPD hx Renal insufficiency (04/01/15) [facility] [place] Cannot afford their visits Nicotine dependence Lichen sclerosus of penis (04/15/15) Surgical History Appendectomy (~11/2009) Social History/Home Situation: Has worked full-time at [employer] for over 5 years now. Lives in an apartment building with no steps to enter. Independent with all aspects of ADLs prior to surgery. Equipment Owned/DME: None Subjective: Feels much better today than he did when he came in. Objective: General Observation: Telemetry monitoring in place. Mental Status: Alert and oriented as to person, place, time, and purpose. Able to pay attention, focus, and respond appropriately. Pain: No report of back pain throughout session. Vital Signs: Closely monitored via telemetry ROM: Right Upper Extremity: Shoulder Flexion WFL. Shoulder abduction WFL. Elbow flexion WFL. Wrist flexion WFL. Functional opening and closing of hand WFL. Left Upper Extremity: Shoulder Flexion WFL. Shoulder abduction WFL. Elbow flexion WFL. Wrist flexion WFL. Functional opening and closing of hand WFL. Right Lower Extremity: Hip flexion WFL. Hip abduction WFL. Knee flexion WFL. Ankle dorsiflexion WFL. Ankle plantarflexion WFL. Left Lower Extremity: Hip flexion WFL. Hip abduction WFL. Knee flexion WFL. Ankle dorsiflexion WFL. Ankle plantarflexion WFL. Strength: Right Upper Extremity: Shoulder flexors 4/5. Shoulder abductors 4/5. Elbow flexors 5/5. Elbow extensors 5/5. Environmental Compliance Manager strong. Left Upper Extremity: Shoulder flexors 4/5. Shoulder abductors 4/5. Elbow flexors 5/5. Elbow extensors 5/5. Environmental Compliance Manager strong. Right Lower Extremity: Hip flexors 4/5. Hip abductors 4/5. Knee flexors 5/5. Knee extensors 4/5. Ankle dorsiflexors 4/5. Ankle plantarflexors 5/5. Left Lower Extremity: Hip flexors 4/5. Hip abductors 4/5. Knee flexors 5/5. Knee extensors 4/5. Ankle dorsiflexors 4/5. Ankle plantarflexors 5/5. Bed Mobility/Transfers: Rolling independent Supine to sit independent Sit to supine independent Sit to stand independent Stand to sit independent Bed to bedside commode independent Bedside commode to bed independent Bed to reclining chair independent Reclining chair to bed independent Gait: 500 feet with med surge ambulation using no device supervision only for line managemnt. VS all WNL throughout session: 132/74 mmHg, 94% on room air, and 81 bpm. Denied weakness, shortness of breath, fatigue, headache, chest pain, and lightheadedness throughout session. Balance: Static Sitting: Normal Dynamic Sitting: Normal Static Standing: Normal Dynamic Standing: Good Special Tests: Mobility Limitations Standardized Measure [facility] 6 clicks Basic Mobility Inpatient Short Form: Raw Score: 24 CMS Score: 0% deficit Informed Consent/Education: Patient was instructed in purpose of PT consult. Assessment: Patient now at baseline mobility needing no assistive device for level surface ambulation only limited by telemetry lines. He was made independent inside his room without device and needs supervision in hallway ambulation for line management. Patient is assessed as a 57777 low complexity based on the following: History: 58-year-old male with past medical history as indicated above Examination: As above Presentation: Stable Decision Makin low complexity Goals: N/A. PT evaluation only. Patient at baseline mobility level without need for assistive device. Nursing staff may walk up patient in the hallway with supervision for line management. Plan of Care/Treatment Plan: N/A. PT evaluation only. Patient at baseline mobility level without need for assistive device. DISCHARGE RECOMMENDATIONS: X Home with no services. Home when medically cleared by hospitalist. [] Home with services [specify] [] Home with outpatient PT [] [] SNF for continued rehabilitation [] [] Group Home Care [] [] SNF versus LTC based on ability to participate and progress [] TREATMENT CODE/TIME: 43391 x 23 minutes for 1 unit (14:15?14:38). Thank you for the opportunity to participate in the care of this patient. Judie Queen PT, DPT, CLT [facility] [place], [place]
[2024-03-10] MEDS: INSULIN REGULAR IN 0.9 % NACL 100 UNIT/100 ML BAG 6.5 UNIT IVINF (16:12)
[2024-03-10 18:17] LABS: Anion Gap 8.4 mmol/L (3-11); BUN 53 mg/dL (7-18); CO2 27.6 mmol/L (21.0-32.0); Chloride 110 mmol/L (98-107); Estimated GFR 16.93 (mL/min/1.73m2); Glucose 139 mg/dL (74-106); Potassium 3.1 mmol/L (3.5-5.1); Sodium 146 mmol/L (136-145)
[2024-03-10 18:21] LABS: CREATININE 3.9 mg/dL (0.70-1.30)
[2024-03-10 18:33] LABS: Calcium 8.8 mg/dL (8.5-10.1)
[2024-03-10 20:22] LABS: Anion Gap 9.8 mmol/L (3-11); BUN 54 mg/dL (7-18); CO2 26.2 mmol/L (21.0-32.0); Calcium 8.9 mg/dL (8.5-10.1); Chloride 111 mmol/L (98-107); Estimated GFR 16.43 (mL/min/1.73m2); Glucose 104 mg/dL (74-106); Potassium 3.1 mmol/L (3.5-5.1); Sodium 147 mmol/L (136-145)
[2024-03-10] MEDS: Carvedilol 6.25 MG TAB PO (20:43)
[2024-03-10 20:50] LABS: Magnesium 2.3 mg/dL (1.8-2.4)
[2024-03-10] MEDS: POTASSIUM CHLORIDE/0.9% NACL 1,000 ML 125 MEQ IV (21:42)
[2024-03-10] MEDS: POTASSIUM CHLORIDE 20 MEQ/100 ML BAG 50 MEQ IV_INF (21:54)
[2024-03-10] MEDS: Insulin Glargine 300 UNITS/3 ML PEN 10 UNITS SC (22:57)
[2024-03-10] MEDS: Insulin Aspart 300 UNITS/3 ML PEN SC (22:57)
[2024-03-11] VITALS (12 sets, daily range): BP systolic 118–143; BP diastolic 58–85; PULSE 50–85; RESP 14–24; O2SAT 92–98
[2024-03-11] MEDS: Heparin 5,000 UNITS/ML VIAL 5000 UNITS SC ×3 (00:30→16:45)
[2024-03-11 06:59] LABS: HCT 38.9 % (40.0-50.0); HGB 13.5 g/dL (13.5-17.5); MCH 29.9 pg (27.0-33.0); MCHC 34.7 % (32.0-36.0); MCV 86 fL (80-95); Platelet Count 187 10^3/uL (130-400); RBC 4.51 10^6/uL (4.36-5.78); RDW 11.9 % (11.8-14.1); RDW-SD 37.4 fL; WBC 9.89 10^3/uL (4.4-10.8)
[2024-03-11 07:33] LABS: ALT 14 U/L (16-63); AST 9 U/L (15-37); Albumin 2.9 g/dL (3.4-5.0); Alkaline Phosphatase 87 U/L (46-116); Anion Gap 9.6 mmol/L (3-11); BUN 49 mg/dL (7-18); CO2 25.4 mmol/L (21.0-32.0); Calcium 8.8 mg/dL (8.5-10.1); Chloride 110 mmol/L (98-107); Estimated GFR 17.47 (mL/min/1.73m2); Glucose 224 mg/dL (74-106); Potassium 3.5 mmol/L (3.5-5.1); Sodium 145 mmol/L (136-145); Total Protein 6.6 g/dL (6.4-8.2)
[2024-03-11 07:35] LABS: CREATININE 3.8 mg/dL (0.70-1.30)
[2024-03-11] MEDS: Insulin Aspart 300 UNITS/3 ML PEN SC ×4 (07:41→22:15)
[2024-03-11] MEDS: Ezetimibe 10 MG TAB PO (07:43)
[2024-03-11] MEDS: amLODIPine 10 MG TAB PO (07:43)
[2024-03-11] MEDS: Allopurinol 100 MG TAB PO ×2 (07:44→20:27)
[2024-03-11] MEDS: Aspirin E.C. 81 MG TABEC PO (07:44)
[2024-03-11] MEDS: Carvedilol 6.25 MG TAB PO ×2 (07:44→20:26)
[2024-03-11] MEDS: POTASSIUM CHLORIDE/0.9% NACL 1,000 ML 125 MEQ IV (08:01)
--- NOTE | 2024-03-11 08:56 | PDOC.CMPRO ---
Date of service: 03/11/24 Time of Service: 08:57 Care Management Progress Note Progress Note Text Progress Note Text: Chucky was sitting up in his bed when CM met with him today. He was pleasant. He did not really engage with the agitator operator yesterday. When asked about it, he did not remember a visit from him. When asked if he would like a visit, he asked, what will he do? Tell me what to eat and what not to eat? I already know that. SOHAIL stated that he could probably get some really good tips and learn more about diabetes, but he didn't think he needed this. Chucky stated to CM that I absolutely will not do insulin. There must be a pill I can take. He became upset that he has been seeing nephrology for a year and they still haven't been able to fix me. Chucky is also very concerned about missing any more work. He does not get paid if he does not go to work, and is only allowed 5 sick days/year. 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 We discussed FMLA, he is aware of it, has used it in the past, but he won't get paid and cannot afford to not be paid. CM encouraged [facility] to [facility], for which he has qualified in the past. SOHAIL also discussed his CPAP machine. Tien is supposed to be on Bipap, but could not afford it as prescribed, and purchased an online CPAP machine. SOHAIL discussed with Tien that he will need to have another sleep study done as it has been 5 years, and this will need to be pursued on an outpatient basis. He again stated that he could not miss work. CM offered to write a return to work letter, but he did not think this was necessary. HH is out of the question for Tien, as he insists he can not miss more work. SOHAIL stated that she is concerned for his health if he doesn't follow the recommendations from the providers. SOHAIL contacted his PCP office to let them know of these concerns. SOHAIL also reached out to Tien's daughter, Bing, to discuss Tien's reluctance to use insulin and to follow up at the sleep clinic, with hopes that she could discuss with him. SOHAIL left a VM asking for a call back. Bing's name was stated in her VM. Discharge Potential Discharge Needs: PCP F/U Appt and Other (diabetic education, nephrology- has appt for 03/27) Anticipated Barriers to Discharge: None Identified Patient/Family Education Needs: Review discharge instructions, discuss Ask Me Three and Other (diabetic education) Transportation: Private vehicle Plan: Anticipate that Chucky will be discharged home once medically stable. He will need to f/u with his PCP and the senior software development engineer at a previously scheduled appt on 03/27. He will continue per his newly prescribed plan of care and transport home in a private vehicle. CM will continue to follow and update the plan as needed. Social Determinants of Health Screening Social Determinants of Health last assessed: 03/11/24 Will the Patient Participate in the Screening?: Yes Do you worry about having a steady place to live?: no Problems where you live: no known problems In the past 12 months, have you had to go without electric, gas, oil or water in your home?: no Have you or anyone in your house had to go without enough food to eat?: no Has lack of transportation kept you from medical appointments or from doing things needed for daily living?: no Has anyone in your life made you feel unsafe or unsupported?: no How hard is it for you to pay for the very basics like food, housing, medical care, and heating? Would you say it is:: Not hard at all Do you want help finding or keeping work or a job?: I do not need or want help If for any reason you need help with day-to-day activities such as bathing, preparing meals, shopping, managing finances, etc., do you get the help you need?: I don?t need any help How often do you feel lonely or isolated from those around you?: Never Do you speak a language other than Telugu at home?: No Does the patient want assistance with any of the above?: No
--- NOTE | 2024-03-11 10:54 | PHA.REVIEW2 ---
Pharmacy Admission Review Admission Clinical Review Admission Pharmacy Review: Acute kidney injury (Acute) Acute hyponatremia (Acute) Diabetes mellitus with hyperglycemia (Acute) ASCVD (arteriosclerotic cardiovascular disease) (Acute) Stage 4 chronic kidney disease (Acute) Hyperlipidemia (Acute) atorvastatin Adverse Reaction (Mild, Verified 03/09/24 12:11) Skin Rash rosuvastatin Adverse Reaction (Mild, Verified 03/09/24 12:11) Skin Rash Resuscitation Status Full Code Height 5 ft 8 in Weight 108 kg Pharmacy Admission Review Renal Dosing Renal Dosing: BUN 49 mg/dL (7-18) H 03/11/24 05:30 Creatinine 3.8 mg/dL (0.70-1.30) H* 03/11/24 05:30 Medications needing adjustments: Reviewed (CrCl 24.9 mL/min, BUN decreased from 54 and SCr decreased from 4) List of meds needing interventions: Current medications are okay Anticoagulation Anticoagulation: Hgb 13.5 g/dL (13.5-17.5) 03/11/24 05:30 Hct 38.9 % (40.0-50.0) L 03/11/24 05:30 Plt Count 187 10^3/uL (130-400) 03/11/24 05:30 Creatinine 3.8 mg/dL (0.70-1.30) H* 03/11/24 05:30 DVT Prophylaxis: Reviewed Medications: Heparin (q8h) Relevant Labs Relevant Labs: Sodium 145 mmol/L (136-145) 03/11/24 05:30 Potassium 3.5 mmol/L (3.5-5.1) 03/11/24 05:30 Chloride 110 mmol/L (98-107) H 03/11/24 05:30 Magnesium 2.3 mg/dL (1.8-2.4) 03/10/24 20:00 Electrolytes, C-Reactive P, ESR: Reviewed DM Control DM Control: Glucose 224 mg/dL (74-106) H 03/11/24 05:30 Hemoglobin A1c 11.2 % (<5.7) H 03/09/24 13:05 Finger Stick Blood Glucose 256 0741 Finger Stick Blood Glucose 256 0711 Finger Stick Blood Glucose 256 0711 DM Control: Intervened (discontinued insulin infusion order - provider aware) Insulin Dosing, Diabetic Medication: Has order for SS insulin and glargine 10 units at bedtime. Had been on insulin ip but was paused last night. Asked provider this morning if the order could be discontinued, provider was okay with this. Cardiac Review Cardiac Review: Troponin I 30 ng/L (<or=76) 03/09/24 16:14 NT-Pro-B Natriuret Pep 1386 pg/mL (<300) H 03/09/24 13:05 Blood Pressure 143/81 0801 Blood Pressure 125/58 0401 Blood Pressure 120/60 0001 BP, HR, EF%: Reviewed (HR WNL - was in 50s early this morning) List meds needing interventions: Has order for amlodipine 10mg daily and carvedilol 6.25mg BID QTc Review QTc: Reviewed (457 from 03/09/24) IV to PO Switch IV Medications: Intervened (Asked provider if ondansetron could be switched from IV to PO. Provider was okay with change.) Home Meds Home Med List reviewed: Reviewed Relevent Home Meds Not ordered & why?: losartan (on hold per H+P), Repatha (q2week injection) and furosemide (on hold per H+P) Current Meds Current Medication Order Review: Intervened Comments: Changed ondansetron from IV to PO (provider aware) Discontinued insulin infusion order (provider aware) Added IV admission order set Changed Prasugrel to patients own order. Was brought in by patient, verified and sent back up to floor
--- NOTE | 2024-03-11 15:15 | W.PM.PROGNOT ---
Date of Service Date of service: 03/11/24 Time of Service: 15:15 Assessment and Plan Assessment and plan (1) Essential hypertension: Status: Chronic Assessment and plan: Patient is currently on amlodipine 10 mg carvedilol 6.25 mg twice daily Lasix 20 mg daily which has been up to 80 mg daily actually losartan 100 mg daily. Current blood pressure is 151/94. I will hold his ARB secondary to worsening kidney function at this time. (2) Hyperlipidemia: Status: Acute Assessment and plan: Patient is currently on ezetimibe 10 mg daily as well as Repatha 140 mg biweekly. (3) ASCVD (arteriosclerotic cardiovascular disease): Status: Acute Assessment and plan: Continue with his prasugrel, bp meds, antilipids 03.11.24 In reviewing pt records, pt did get a stent in the left circumflex artery on or around 01/16 (4) Type 2 diabetes mellitus without complications: Status: Chronic Assessment and plan: Patient does have a somewhat interesting presentation and that he is not appears to be acting like someone who has been diagnosed with type 1 diabetes with a fairly robust increase in his blood glucose as well as worsening kidney function as well as polyuria and polydipsia. I did put him in the ICU for ICU drip of insulin as well as long-acting insulin. Will check his electrolytes essentially every 2-4 hours to monitor for improvements of his sodium as well as his glucose levels 03.10.24 Pt has beenhad a fairly gentle decrease in his BG. My plan is to stop the IV insulin when BG gets below 200 and start on RISS as well as mcfp lantus. Can downgrade to med/surg when off the drip 03.11.24 Pt is now off the drip and will be downgraded to med-surg. My plan is to stop his ivf, increase his long acting doses and cover him with 12-24 hours to get an idea on how much sliding scale insulin he is getting and trying to get an easy to use insulin regimen (5) Stage 4 chronic kidney disease: Status: Acute Assessment and plan: Holding losartan 03.10.24 Latest bun/cr at 55/4.4 with a GFR at 14.65, Pt does appear to be stable looking at prior labs 03.11.24 Renal function with mild improvement from a gfr 16.43 to 17.47. Continue holding arb, at least for the time being (6) Obstructive sleep apnea syndrome: Status: Chronic Assessment and plan: Will discuss with RT in the a.m. 03.11.24 RT did discuss with pt and apparently he bought himself a cpap of the internet but hasn't had a formal evaluation in over 5 years. My recommendation is to have a formal sleep evaluation in the outpatient setting Subjective Subjective Interval history since last seen: PT seen and examined in his room this am. POC d/w pt as well as the bedside nurse during ICU huddle. Also communicated with PT over Webex Exam Narrative Exam Narrative: Head eyes ears nose and throat: Normocephalic atraumatic mucous membranes dry extraocular motions are intact pupils are equal round and reactive to light Neck: No lymphadenopathy no JVD no thyroid megaly Cardiovascular: Regular rate and rhythm no murmurs gallops Pulm: Clear to auscultation bilaterally with good air exchange no accessory muscle use noted speaking in complete sentences Abdomen: Soft nontender nondistended bowel sounds active x 4 quadrants Extremities: No pitting edema bilaterally in the lower extremities Neurologic: Cranial nerves II through XII are intact as tested reflexes in the upper and lower extremities are normal as tested Psych: Alert and oriented x 3 but somewhat somnolent. Patient is able to give a linear history. General: 58-year-old gentleman who appears his stated age no apparent distress Objective Last Vital Signs Temp 37.5 C 03/10/24 17:57 Pulse 63 03/11/24 12:01 Resp 18 03/11/24 12:01 BP 141/85 H 03/11/24 12:01 Pulse Ox 96 03/11/24 12:01 Laboratory Results - last 24 hr 03/10/24 03/10/24 03/11/24 17:55 20:00 05:30 WBC 9.89 RBC 4.51 Hgb 13.5 Hct 38.9 L MCV 86 MCH 29.9 MCHC 34.7 RDW 11.9 Plt Count 187 MPV 11.0 Sodium 146 H 147 H 145 Potassium 3.1 L 3.1 L 3.5 Chloride 110 H 111 H 110 H Carbon Dioxide 27.6 26.2 25.4 Anion Gap 8.4 9.8 9.6 BUN 53 H 54 H 49 H Creatinine 3.9 H* 4.0 H* 3.8 H* Est GFR (CKD-EPI 2020) 16.93 16.43 17.47 Glucose 139 H 104 224 H Calcium 8.8 8.9 8.8 Magnesium 2.3 Total Bilirubin 0.30 AST 9 L ALT 14 L Alkaline Phosphatase 87 Total Protein 6.6 Albumin 2.9 L Time Spent with Patient Time Spent with Patient: 35-49 minutes Time was spent: preparing to see the patient(eg.review tests), obtaining and/or reviewing separately otained hiistory, ordering medications,tests, procedures, referring, communicating with other health healthcare sales representative, indepentently interpreting results, counseling the patient and care coordination
[2024-03-11] MEDS: Insulin Glargine 300 UNITS/3 ML PEN 20 UNITS SC (20:26)
[2024-03-11] MEDS: Lidocaine 5% Patch 1 PATCH TP (20:29)
[2024-03-11] MEDS: Albuterol HFA 8 GM 60 PUFF INH IH (21:39)
[2024-03-12] VITALS (19 sets, daily range): BP systolic 114–147; BP diastolic 59–88; PULSE 49–88; RESP 14–23; TEMP 37.2–37.4; O2SAT 93–97
[2024-03-12] MEDS: Heparin 5,000 UNITS/ML VIAL 5000 UNITS SC ×3 (00:56→17:03)
[2024-03-12 06:42] LABS: Abs Immature Grans 0.04 10^3/uL (0.0-0.06); Absolute Basophil Count 0.11 10^3/uL (0.0-0.2); Absolute Eosinophil Count 0.22 10^3/uL (0.0-0.7); Absolute Lymphocyte Count 2.08 10^3/uL (1.2-3.4); Absolute Monocyte Count 0.57 10^3/uL (0.1-0.8); Basophils % 1.2 %; Eosinophils % 2.5 %; HCT 38.6 % (40.0-50.0); HGB 13.3 g/dL (13.5-17.5); Immature Grans % 0.5 %; Lymphocytes % 23.6 %; MCH 30.1 pg (27.0-33.0); MCHC 34.5 % (32.0-36.0); MCV 87 fL (80-95); MPV 10.8 fL (8.0-11.0); Monocytes % 6.5 %; Neutrophils % 65.7 %; Platelet Count 189 10^3/uL (130-400); RBC 4.42 10^6/uL (4.36-5.78); RDW 11.9 % (11.8-14.1); RDW-SD 38.1 fL; WBC 8.82 10^3/uL (4.4-10.8)
[2024-03-12 07:17] LABS: ALT 13 U/L (16-63); AST 8 U/L (15-37); Albumin 3.2 g/dL (3.4-5.0); Alkaline Phosphatase 93 U/L (46-116); Anion Gap 12.2 mmol/L (3-11); BUN 52 mg/dL (7-18); Bilirubin, Total 0.46 mg/dL (0.2-1.0); CO2 23.8 mmol/L (21.0-32.0); Chloride 108 mmol/L (98-107); Estimated GFR 16.43 (mL/min/1.73m2); Glucose 203 mg/dL (74-106); Potassium 3.4 mmol/L (3.5-5.1); Sodium 144 mmol/L (136-145); Total Protein 7.3 g/dL (6.4-8.2)
[2024-03-12] MEDS: Allopurinol 100 MG TAB PO ×2 (08:07→19:43)
[2024-03-12] MEDS: Aspirin E.C. 81 MG TABEC PO (08:07)
[2024-03-12] MEDS: Ezetimibe 10 MG TAB PO (08:07)
[2024-03-12] MEDS: amLODIPine 10 MG TAB PO (08:07)
[2024-03-12] MEDS: Normal Saline Flush 10 ML SYR IVP ×2 (08:08→19:43)
[2024-03-12] MEDS: Carvedilol 6.25 MG TAB PO ×2 (08:08→19:43)
[2024-03-12] MEDS: Insulin Aspart 300 UNITS/3 ML PEN SC ×4 (08:22→22:04)
[2024-03-12] MEDS: Patch Removal 1 EACH TP (08:29)
[2024-03-12] MEDS: Levalbuterol HFA 15 GM INH 4 PUFF IH (11:13)
[2024-03-12] MEDS: Inhaler, Assist Device 1 EACH MC (11:13)
--- NOTE | 2024-03-12 15:29 | CMPROGNOTE_ITS ---
Date of service: 03/12/24 Time of Service: 15:29 Care Management Progress Note Progress Note Text Progress Note Text: Chucky was lying in bed when CM met with him. His grandson and the mother of his children were in the room visiting. Before meeting, CM contacted his pharmacy to determine the cost of his insulin (Lantus $105, Novalog, unknown, PA needed). CM also contacted [facility] to find out if there were less cost prohibitive options. Per [facility], two pens of Lantus will be approximately $46, and five pens of [employer] brand of Novalog is approx $84; per report this should cover him for about a month. CM discussed this with Chucky, who expressed frustration about the cost of insulin, but stated that he will purchase the insulin from [employer]. CM will request that his insulin prescription is sent to [facility] in [place]. Chucky also expressed frustration about the difficulties of getting a new BiPAP machine; CM explained the process, per RT. CM validated his concerns and frustrations. CM will continue to follow. Discharge Plan: Anticipate that Chucky will be discharged home once medically stable. He will need to f/u with his PCP and the medical specialist at a previously scheduled appt on 03/27. He will continue per his newly prescribed plan of care and transport home in a private vehicle. CM will continue to follow and update the plan as needed. Social Determinants of Health Screening Social Determinants of Health last assessed: 03/12/24 Will the Patient Participate in the Screening?: Yes Do you worry about having a steady place to live?: no Problems where you live: no known problems In the past 12 months, have you had to go without electric, gas, oil or water in your home?: no Have you or anyone in your house had to go without enough food to eat?: no Has lack of transportation kept you from medical appointments or from doing things needed for daily living?: no Has anyone in your life made you feel unsafe or unsupported?: no How hard is it for you to pay for the very basics like food, housing, medical care, and heating? Would you say it is:: Not hard at all Do you want help finding or keeping work or a job?: I do not need or want help If for any reason you need help with day-to-day activities such as bathing, preparing meals, shopping, managing finances, etc., do you get the help you need?: I don?t need any help How often do you feel lonely or isolated from those around you?: Never Do you speak a language other than Polish at home?: No Does the patient want assistance with any of the above?: No
--- NOTE | 2024-03-12 18:50 | RESPIRATORY ---
Addendum entered by Heidi Reagan 03/13/24 12:03: 03/13/2024-Pt asking if the respiratory department could program a new bipap machine that he wants to purchase and bring back to hospital after being discharged today. Explained that he would need to get a new sleep study and have a MD provide the prescription to a DME. Suggested he could see if DME would accept the prescription from November 2019 but that we are unable to program any home machines. Original Note: After reviewing patient's chart, RT found that pt had prior sleep study that led to home Auto-BiPAP prescription in November 2019. Original settings Max EPAP: 20, Min IPAP: 10, PS: 4, No O2 bleed in. After speaking with patient, it was found that there were concerns with insurance not covering the cost of the BiPAP, and pt states he gave the machine back due to this. Subsequently, pt shopped online for a new machine and paid for it out of pocket from [employer]. Pt was unaware at the time that there are differences in some of the machines and accidentally bought an Auto-CPAP unit instead of Auto-BiPAP. Pt states the machine he bought did not feel right when he tried it, and so it has not been used in quite some time. There is no DME or prescription tied to this personal unit. Pt will need an updated outpatient sleep study to get a new BiPAP machine with correct settings. RT spoke with pt in length and pt was very agreeable and understanding of the circumstances.
[2024-03-12] MEDS: Insulin Glargine 300 UNITS/3 ML PEN 20 UNITS SC (19:41)
[2024-03-12] MEDS: Acetaminophen 325 MG TAB PO (19:42)
[2024-03-13] VITALS (8 sets, daily range): BP systolic 109–125; BP diastolic 67–82; PULSE 62–75; TEMP 37; O2SAT 92–96
[2024-03-13] MEDS: Heparin 5,000 UNITS/ML VIAL 5000 UNITS SC ×2 (00:35→08:42)
[2024-03-13] MEDS: Insulin Aspart 300 UNITS/3 ML PEN SC (08:41)
[2024-03-13] MEDS: amLODIPine 10 MG TAB PO (08:42)
[2024-03-13] MEDS: Ezetimibe 10 MG TAB PO (08:42)
[2024-03-13] MEDS: Aspirin E.C. 81 MG TABEC PO (08:43)
[2024-03-13] MEDS: Carvedilol 6.25 MG TAB PO (08:43)
[2024-03-13] MEDS: Allopurinol 100 MG TAB PO (08:43)
--- NOTE | 2024-03-13 11:33 | PGE_ITS ---
Date of Service Date of service: 03/12/24 Time of Service: 17:40 Assessment and Plan Assessment and plan (1) Essential hypertension: Status: Chronic Assessment and plan: -Patient is currently on amlodipine 10 mg carvedilol 6.25 mg twice daily Lasix 20 mg daily which has been up to 80 mg daily actually losartan 100 mg daily. Current blood pressure is 151/94. I will hold his ARB secondary to worsening kidney function at this time. (2) Hyperlipidemia: Status: Acute Assessment and plan: Patient is currently on ezetimibe 10 mg daily as well as Repatha 140 mg biweekly. (3) ASCVD (arteriosclerotic cardiovascular disease): Status: Acute Assessment and plan: Continue with his prasugrel, bp meds, antilipids 03.11.24 In reviewing pt records, pt did get a stent in the left circumflex artery on or around 01/16 (4) Type 2 diabetes mellitus without complications: Status: Chronic Assessment and plan: -Patient does have a somewhat interesting presentation and that he is not appears to be acting like someone who has been diagnosed with type 1 diabetes with a fairly robust increase in his blood glucose as well as worsening kidney function as well as polyuria and polydipsia. I did put him in the ICU for ICU drip of insulin as well as long-acting insulin. Will check his electrolytes essentially every 2-4 hours to monitor for improvements of his sodium as well as his glucose levels -03.10.24 Pt has beenhad a fairly gentle decrease in his BG. 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 Can downgrade to med/surg when off the drip -03.11.24 Pt is now off the drip and will be downgraded to med-surg. My plan is to stop his ivf, increase his long acting doses and cover him with 12-24 hours to get an idea on how much sliding scale insulin he is getting and trying to get an easy to use insulin regimen -Blood sugars have been stable with medium dose sliding scale and 20 units of Lantus at bedtime, which is what has been sent to his pharmacy and will likely need a TDD patient's discharge blood sugar/insulin regimen (5) Stage 4 chronic kidney disease: Status: Acute Assessment and plan: Holding losartan 03.10.24 Latest bun/cr at 55/4.4 with a GFR at 14.65, Pt does appear to be stable looking at prior labs 03.11.24 Renal function with mild improvement from a gfr 16.43 to 17.47. Continue holding arb, at least for the time being (6) Obstructive sleep apnea syndrome: Status: Chronic Assessment and plan: Will discuss with RT in the a.m. 03.11.24 RT did discuss with pt and apparently he bought himself a cpap of the internet but hasn't had a formal evaluation in over 5 years. My recommendation is to have a formal sleep evaluation in the outpatient setting Subjective Subjective Interval history since last seen: Long discussion with patient regarding his need for insulin. He understands it is important, and is appreciative of the assistance of care management has provided with potential assistance. Understands he will continue to get diabetes education and will likely be ready for discharge tomorrow, 03/13/2024. Exam Narrative Exam Narrative: Well-appearing older gentleman sitting up in bed in no acute distress, ANO x 4, heart regular rhythm, lungs good auscultation bilaterally, abdomen soft, nontender, nondistended Objective Last Vital Signs Temp 98.6 F 03/13/24 05:00 Pulse 70 03/13/24 05:00 Resp 16 03/12/24 19:43 BP 125/67 03/13/24 04:01 Pulse Ox 95 03/13/24 08:00 Time Spent with Patient Time Spent with Patient: >50 minutes Time was spent: preparing to see the patient(eg.review tests), obtaining and/or reviewing separately otained hiistory, ordering medications,tests, procedures, referring, communicating with other health care program resident, indepentently interpreting results, counseling the patient and care coordination
--- NOTE | 2024-03-13 11:33 | W.PM.DS.N ---
Date of service: 03/13/24 Time of Service: 11:33 DS: Diagnosis Discharge Diagnosis (1) Essential hypertension: Status: Chronic (2) Hyperlipidemia: Status: Acute (3) ASCVD (arteriosclerotic cardiovascular disease): Status: Acute (4) Type 2 diabetes mellitus without complications: Status: Chronic (5) Stage 4 chronic kidney disease: Status: Acute (6) Obstructive sleep apnea syndrome: Status: Chronic Discharge Plan Disposition Patient Disposition: Home Condition: Good Discharge Details Reason For Visit: Weakness Admit Date/Time: 03/09/24 15:50 Admit Provider: Burke Bullock Attending Provider: Burke Bullock Primary Care Provider: Maximus Esposito Hospital Course Hospital Course: Patient initially presented with weakness that was found to be due to HHS with glucose levels ~1400. He was started on insulin drip and eventually transitioned to lantus 20U BID and sliding scale insulin with improvement in his blood glucose levels. He recieved significant diabetic and insulin administration education over the few days prior to discharge and demonstrated understanding and ability to check his blood sugar levels and administer insulin. Home Meds and New Rx's Prescriptions: New insulin aspart U-100 100 unit/mL (3 mL) insulin pen 1 sliding scale dose subcut USEASDIRECTD Qty: 15 2RF Rx Instructions: Glucose reading <140, 0 units. 140-180, 2 unit. 181-220, 4 units, 221-260, 6 units. 261-300 8 units. 301-340, 10 units. 341-380 12 units. 381-420, 14 units. 421-460 16 units. 461-500, 18 units insulin glargine [Lantus Solostar U-100 Insulin] 100 unit/mL (3 mL) insulin pen 20 unit subcut QPM Qty: 15 2RF Continued albuterol sulfate [ProAir HFA] 90 mcg/actuation HFA aerosol inhaler 2 puff Inhalation Q6H PRN Qty: 1 0RF Rx Instructions: with spacer Repatha SureClick 140 mg/mL pen injector 140 mg subcut Q2W Qty: 2 5RF Rx Instructions: Prescribed by [facility] Cardiology Dr. Jaquan Painter on 04/22/23. -hb furosemide 20 mg tablet 20 mg PO DAILY PRN (Reason: edema) Qty: 90 4RF Rx Instructions: to be taken with 40 mg tab furosemide 40 mg tablet 40 mg PO DAILY Qty: 90 3RF nitroglycerin 0.4 mg tablet, sublingual 0.4 mg sublingual Q5M PRN Rx Instructions: 04/23/[address] Painter at [facility] Cardiology. -hb do not exceed 3 doses per episode ezetimibe 10 mg tablet 10 mg PO DAILY Qty: 90 3RF Rx Instructions: 04/23/[address] Painter at [facility] Cardiology. -hb amlodipine 10 mg tablet 10 mg PO DAILY Qty: 90 4RF carvedilol 6.25 mg tablet 6.25 mg PO BID Rx Instructions: must administer with a meal/food allopurinol 100 mg tablet 100 mg PO BID Qty: 180 4RF prasugrel 10 mg tablet 10 mg PO DAILY Qty: 90 3RF Rx Instructions: 04/23/[address] Painter at [facility] Cardiology. -hb losartan 100 mg tablet 100 mg PO DAILY aspirin 81 mg tablet,chewable 1 tab PO DAILY Patient Comments: CHEW AND SWALLOW ONE TABLET BY MOUTH EVERY DAY No Action (DME) blood sugar diagnostic Strip 1 ea Miscellaneous BID Qty: 100 4RF Rx Instructions: One daily (DME) blood-glucose meter [OneBityotauch UltraMini] 1 EACH kit 1 ea Miscellaneous BID Qty: 1 0RF (DME) lancets [OneTouch Delica Lancets] 1 EACH misc 1 ea Miscellaneous BID Qty: 100 5RF Discharge Instructions Additional Instructions: Please call [phone] to set up an appointment with your eye doctor, [facility] [place], at discharge [facility] appointment May 05, 2024 at 0900. They will call if they have a cancellation and can get you in earlier. Will fax your discharge info to them. Activity:: Activity as Tolerated Equipment/Supplies:: Ketostix (Type I Diab) Diet:: Carb Counting Discharge Orders Discharge Orders: Discharge Order (Routine); Ordered 03/13/24 Ordered By: Nigel Brito Discharge Data Discharge Date/Time-TO BE ENTERED AT DEPARTURE: 03/13/24 13:30 Discharge Comment: follow up appointment 03/25 at 0900 Chucky Sanchez NP DS: Summary Time Spent with Patient providing and/or coordinating discharge services: Greater than 30 minutes Status at Discharge Functional status at discharge: independent ambulation Overall status at discharge: patient is back to baseline Mental Status: mental status grossly normal Speech and Movement: speech and movement normal Mood: congruent mood Affect: normal affect Quality:SDOH Health Related Social Needs: No Data to Display Exam Narrative Exam Narrative: Well-appearing older gentleman sitting up in bed in no acute distress, ANO x 4, heart regular rhythm, lungs good auscultation bilaterally, abdomen soft, nontender, nondistended Psych Mental Status: mental status grossly normal Speech and Movement: speech and movement normal Mood: congruent mood Affect: normal affect DS: Data Vitals/I&O Vitals and I&O: Vital Signs Temperature 98.6 F 03/13/24 05:00 Temperature Source Temporal Artery Scan 03/13/24 05:00 Pulse 70 03/13/24 05:00 Pulse 66 03/12/24 19:43 Respiratory Rate 16 03/12/24 19:43 Respiratory Effort Normal, Non-Labored 03/09/24 16:56 Respiratory Depth Normal 03/09/24 16:56 Respiratory Pattern Normal 03/09/24 16:56 Blood Pressure 125/67 03/13/24 04:01 Blood Pressure Mean 83 03/13/24 04:01 Blood Pressure Position Supine 03/09/24 16:56 Pulse Oximetry 95 03/13/24 08:00 Oxygen Delivery Method Room Air 03/13/24 05:00 Oxygen Flow Rate 0 03/13/24 05:00 Pain Level 3 03/12/24 19:42 Comment Pt on O2 while asleep, uses CPAP at home 03/10/24 04:00 Intake & Output 03/12/24 03/13/24 03/13/24 17:59 05:59 17:59 Intake Total 1020 / 1020 1550 / 2570 240 / 240 Output Total 2775 / 2775 1675 / 4450 600 / 600 Balance -1755 / -1755 -125 / -1880 -360 / -360 Intake: Oral 1020 / 1020 1550 / 2570 240 / 240 Output: Urine 2775 / 2775 1675 / 4450 600 / 600 Other: Urine Color Pale Light Bernie Yellow Urine Appearance Clear Clear Clear Urine Odor None None PFSH All Active Problems (Updated 03/09/24 @ 14:59 by Chino Napoles MD) Acute kidney injury (Acute) Acute hyponatremia (Acute) Diabetes mellitus with hyperglycemia (Acute) ASCVD (arteriosclerotic cardiovascular disease) (Acute) Flash pulmonary edema (Acute 11/2023) TTE w/ LVEF 41% lateral akinesis, similar to 09/2023. Neg MPI 12/16/23. Encourage low salt diet STEMI (ST elevation myocardial infarction) (Acute) Chest pain at rest (Acute) Right carotid bruit (Acute) Stage 4 chronic kidney disease (Acute) Hyperlipidemia (Acute) Type 2 diabetes mellitus without complications (Chronic) Obstructive sleep apnea syndrome (Chronic) Essential hypertension (Chronic 04/28/15) Medical History Hypertensive emergency (~11/2023) Chest pain Gout (03/25/12) Smoker (05/19/15) 2020- PPD hx Renal insufficiency (04/01/15) [facility]- no longer following Cannot afford their visits Nicotine dependence Lichen sclerosus of penis (04/15/15) Surgical History Appendectomy (~11/2009) Family History Mother No problems noted. Father Hyperlipidemia Stroke Brother Diabetes Asthma Social History Smoking/Tobacco Use Status: Former Tobacco Use Tobacco: How many years used: 40 Quit status: not considering quitting Second Hand Exposure: Yes Counseling given: provider counseling Smoking risk assessment performed?: Yes Alcohol Intake: former Drug use: Current Sobriety Substance use type: does not use Household members: none Housing: house Communication Needs: None Do you need help understanding health information?: Never current occupation: [employer] Pets and animals: No Sexually active: Yes Do you think of yourself as: straight/heterosexual Current gender identity: male What is your relationship status?: How often do you talk on the phone with friends or family?: once per week How often do you get together with friends or relatives?: once per week How often do you attend baptism or rastafari services?: 1-3 times per year Do you belong to any clubs or organized social groups?: no Panel score (0-1 are the most socially isolated patients): 0 What type of physical activity do you participate in: none Lorena/Restorationist: Taoism Seatbelt use: never Helmet use: Yes Helmet use: sometimes Drive intox or ride w/intox class a truck driver: No Do you feel safe at home: Yes Do you feel safe in your relationship?: Yes Time Spent with Patient Time Spent with Patient: <45 minutes Time was spent: preparing to see the patient(eg.review tests), obtaining and/or reviewing separately otained hiistory, ordering medications,tests, procedures, referring, communicating with other health career based intervention coordinator, indepentently interpreting results, counseling the patient and care coordination
--- NOTE | 2024-03-13 14:29 | PDOC.CMDIS ---
Date of service: 03/13/24 Time of Service: 11:30 LACE Index Scoring Tool Questions: Length of Stay (in days): 4 - 6 Was the patient admitted via the E.D.?: Yes Comorbidities: Previous M.I., Diabetes w/o Complication and Liver or Renal Disease E.D. Visits: 2 Answers: Total Score: 14 Risk of Readmission: High Risk Care Management Discharge Plan Reason for Hospitalization: weakness - uncontrolled diabetes Discharge Plan: Chucky was discharged home to day with new orders to start both long and short acting insulins. He received teaching r/t checking his BS, reading his sliding scale, and administering the correct insulin dosage from the nursing staff. Chucky will f/u with his PCP, and nephrology and continue per his plan of care. SOHAIL spoke with Tien's daughter today, who is aware of the new insulin orders. SOHAIL gave Tien a work note to return to work on Saturday 03/18, per Dr. Brito. Tien was transported home in a private vehicle with his friend. Patient/Family Education Needs: Review of discharge instructions, new medications, activity, limitations and discuss ask me 3. SDOH Health Related Social Needs: No Data to Display
--- NOTE | 2024-03-17 15:33 | W.PFT ---
Date of service: 03/12/24 Time of Service: 10:05 Pulmonary Function Test Result Indications: Dyspnea Interpretation Spirometry: Although the FEV1/FVC is technically normal, airflow limitation is suggested given the appearance of the flow-volume loop and volume time curve. Lung Volumes: There is air trapping and hyperventilation Diffusion Capacity: Normal diffusion Airway Pressure: Normal airways resistance Impression Likely mild airflow limitation with air trapping and a normal diffusion. Clinical Correlation therefore is recommended.
--- NOTE | 2024-03-25 14:40 | PGE_ITS ---
Date of Service Date of service: 03/12/24 Time of Service: 17:43 Assessment and Plan Assessment and plan (1) Essential hypertension: Status: Chronic Assessment and plan: -Patient is currently on amlodipine 10 mg carvedilol 6.25 mg twice daily Lasix 20 mg daily which has been up to 80 mg daily actually losartan 100 mg daily. Current blood pressure is 151/94. I will hold his ARB secondary to worsening kidney function at this time. (2) Hyperlipidemia: Status: Acute Assessment and plan: Patient is currently on ezetimibe 10 mg daily as well as Repatha 140 mg biweekly. (3) ASCVD (arteriosclerotic cardiovascular disease): Status: Acute Assessment and plan: Continue with his prasugrel, bp meds, antilipids 03.11.24 In reviewing pt records, pt did get a stent in the left circumflex artery on or around 01/16 (4) Type 2 diabetes mellitus without complications: Status: Chronic Assessment and plan: -Patient does have a somewhat interesting presentation and that he is not appears to be acting like someone who has been diagnosed with type 1 diabetes with a fairly robust increase in his blood glucose as well as worsening kidney function as well as polyuria and polydipsia. I did put him in the ICU for ICU drip of insulin as well as long-acting insulin. Will check his electrolytes essentially every 2-4 hours to monitor for improvements of his sodium as well as his glucose levels -03.10.24 Pt has beenhad a fairly gentle decrease in his BG. 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 Can downgrade to med/surg when off the drip -03.11.24 Pt is now off the drip and will be downgraded to med-surg. My plan is to stop his ivf, increase his long acting doses and cover him with 12-24 hours to get an idea on how much sliding scale insulin he is getting and trying to get an easy to use insulin regimen -Blood sugars have been stable with medium dose sliding scale and 20 units of Lantus at bedtime, which is what has been sent to his pharmacy and will likely need a TDD patient's discharge blood sugar/insulin regimen (5) Stage 4 chronic kidney disease: Status: Acute Assessment and plan: Holding losartan 03.10.24 Latest bun/cr at 55/4.4 with a GFR at 14.65, Pt does appear to be stable looking at prior labs 03.11.24 Renal function with mild improvement from a gfr 16.43 to 17.47. Continue holding arb, at least for the time being (6) Obstructive sleep apnea syndrome: Status: Chronic Assessment and plan: Will discuss with RT in the a.m. 03.11.24 RT did discuss with pt and apparently he bought himself a cpap of the internet but hasn't had a formal evaluation in over 5 years. My recommendation is to have a formal sleep evaluation in the outpatient setting Subjective Subjective Interval history since last seen: Another long discussion was had with the patient regarding his need for insulin. After also speaking with other hospital staff, he expresses understanding as well as motivation to learn how to check his sugars and administer his insulin. Otherwise he has no complaints or concerns at this time. Exam Narrative Exam Narrative: Well-appearing older gentleman sitting up in bed in no acute distress, ANO x 4, heart regular rhythm, lungs good auscultation bilaterally, abdomen soft, nontender, nondistended Objective Last Vital Signs Temp 98.6 F 03/13/24 05:00 Pulse 75 03/13/24 09:32 Resp 16 03/12/24 19:43 BP 120/78 03/13/24 09:32 Pulse Ox 95 03/13/24 09:32 Time Spent with Patient Time Spent with Patient: >50 minutes Time was spent: preparing to see the patient(eg.review tests), obtaining and/or reviewing separately otained hiistory, ordering medications,tests, procedures, referring, communicating with other health district manager primary care sales, indepentently interpreting results, counseling the patient and care coordination
== END 2024-03-13 13:30 | disposition home or self-care (01) | DRG 638 ==
LOC: ER 14:59 → ICU 16:43
PROVIDERS: Family Medicine; Admitting Provider Hospitalist; Emergency Provider Emergency Medicine; PCP Nurse Practitioner Family; Visit Provider Hospitalist
DX: E87.1 Hypo-osmolality and hyponatremia; N17.9 Acute kidney failure, unspecified; R53.1 Weakness; I25.10 Atherosclerotic heart disease of native coronary artery without angina pectoris; N18.4 Chronic kidney disease, stage 4 (severe); E78.5 Hyperlipidemia, unspecified; E11.22 Type 2 diabetes mellitus with diabetic chronic kidney disease; G47.33 Obstructive sleep apnea (adult) (pediatric); E11.00 Type 2 diabetes mellitus with hyperosmolarity without nonketotic hyperglycemic-hyperosmolar coma (NKHHC); Z87.891 Personal history of nicotine dependence; Z95.5 Presence of coronary angioplasty implant and graft; I25.2 Old myocardial infarction; R25.2 Cramp and spasm; Z79.899 Other long term (current) drug therapy; I12.9 Hypertensive chronic kidney disease with stage 1 through stage 4 chronic kidney disease, or unspecified chronic kidney disease
CPT/HCPCS: 00123; 36415; 80048; 80053; 82550; 82805; 82947; 85027; 93005; 94060; 94640; 94726; 94729; 96361; 96374; 96375; 97161; 99291; 71045; 81003; 81015; 82565; 83036; 83735; 83880; 84156; 84300; 84484; 85025; 85379; 93010; 99223; 99233; 99239; J1644; J1815; J2405; J3480; J3490

== ENCOUNTER 2024-11-02 10:56 | Outpatient (CLI) | payer OTHER, SELFPAY ==
--- NOTE | 2024-11-02 05:45 | DI.NM_ITS ---
APPROVED REPORT Exam: Exercise Treadmill Patient Location: Out-Patient Room/Bed: Stress Nurse: Silvino Lucio RN Ordering Provider:JASKARAN LIU, Contact Number: BMI: 37.24 Baseline Rhythm: Sinus Rhythm. Comment: Rare PAC; Rare PVC. Indications: Chest Pain; Dyspnea on Exertion; Prior MD. Medical History Medical History: HTN Emergency; Gout; Smoker; Renal Insufficiency; Nicotine Dependence; ASCVD; Flash Pulmonary Edema; STEMI; Right Carotid Artery Bruit; Stage 4 CKD; HLD; HTN; Type 2 Diabetes Mellitus; KATIE; EF of 45-50 percent. Cardiac Medications: Albuterol Sulfate; Allopurinol; Amlodipine; Aspirin; Carvedilol; Empagliflozin; Evolocumab; Ezetimibe; Furosemide; Indomethacin; Insulin Aspart; Insulin Glargine; Losartan; Prasugrel; Umeclidinium. Allergies: Atorvastatin; Rosuvastatin. Cardiac Risk Factors: HLD; HTN; CVD; Type 2 Diabetes Mellitus; Former Smoker; Obesity. Previous Cardiac Procedures: YOAN 03/2023 Pretest Chest Pain Characteristics: None. Exercise History: Indeterminate. Physical Disabilities: Shortness of breath with exertion. Lung Sounds: Clear bilaterally throughout, anterior and posterior. Heart Sounds: S1 and S2 auscultated. Stress Test Details Test: Exercise stress testing was performed using a Julio protocol. Nuclear Acquisition: Rest Tc-99m/Stress Tc-99m 1 day Rest Isotope: Tc-99m Sestamibi. Dose: 12.0 Date: 11/02/2024 Injection Time: 0835 Stress Isotope: Tc-99m Sestamibi. Dose: 34.0 Date: 11/02/2024 Injection Time: 1010 HR Resting HR Supine: 61 bpm Max Heart Rate (APMHR): 160 bpm Resting HR Standin bpm Target HR (85% APMHR): 136 bpm Max HR Achieved: 146 bpm % of APMHR: 91 Recovery HR: 82 bpm HR response to stress: Normal HR response to stress. BP Resting BP Supine: 182/98 mmHg Resting BP Standin/86 mmHg Max BP: 210/90 mmHg Recovery BP: 142/76 mmHg BP response to stress: Normal blood pressure response to stress. ECG Resting ECG: Sinus Rhythm. Ectopy: Rare PAC; Rare PVC. Stress ECG: Sinus Tachycardia. ST Change: No significant ST segment changes noted. Arrhythmia: Rare PAC's; Occasional PVC's. Recovery ECG: Sinus Rhythm. Recovery ST Change: No significant ST segment changes noted. Recovery Arrhythmia: Rare PAC's; Occasional PVC's; Occasional Couplets. Clinical Reason for Termination: Target HR Achieved, Dyspnea. Stress Symptoms: Dyspnea. Exercise duration: 07 min32 sec Highest Stage Reached: Stage 3: 3.4 mph at 14% grade. Exercise capacity: 9.43 METs Angina Score: None Rate Pressure Product: 65308 Stress ECG Conclusion 1. Resting electrocardiogram showed poor R wave progression 2. Patient exercised on the Julio protocol completed workload of 9 METS 3. Normal heart rate and blood pressure response to exercise. The patient achieved 91% of maximal predicted heart rate for age 4. There was no electrocardiographic evidence of myocardial ischemia 5. There were no significant dysrhythmias 6. See MPI report Stress Test Summary STAGE Time (mins) Speed (mph) Grade (%) HR BP SpO2 SYMPTOMS METS Supine 61 182/98 96 Standing 61 168/86 96 1 3 1.7 10 103 188/86 96 Pt. c/o mild shortness of breath. 4.5 2 6 2.5 12 128 210/90 95 Pt. c/o moderate shortness of breath. 7 3 9 3.4 14 146 95 Pt. c/o severe shortness of breath. Pt. requesting to stop the test. 10 1 min recovery 122 188/82 96 Pt. c/o moderate to severe shortness of breath. 3 min recovery 83 178/84 98 Pt. c/o mild to moderate shortness of breath. 6 min recovery 82 142/76 98 Pt. states that all shortness of breath has resolved back to baseline. Pt. performed an MPI stress test using the Julio protocol. MPI stress test was stopped when pt. achieved a heart rate greater than the target heart rate, when pt. started to experience severe shortness of breath, and when pt. requested to stop the stress test. Pt.'s shortness of breath recovered back to baseline prior to leaving the Stress Lab. Pt. was conversing pleasantly with nursing staff upon leaving the Stress Lab. Pt. left ambulatory in no apparent distress. MPI Conclusion Myocardial perfusion does not demonstrate any evidence of ischemia or prior infarction EF is calculated to be 29% with global hypokinesis
== END 2024-11-02 11:16 ==
LOC: DI 10:57
PROVIDERS: PCP Nurse Practitioner Family; Visit Provider Internal Medicine Cardiovascular Disease
DX: R07.9 Chest pain, unspecified (principal); R06.00 Dyspnea, unspecified
CPT/HCPCS: 78452; 93017